=== PATIENT | female | born 1950 | race Caucasian/White ===

== ENCOUNTER 2016-12-22 09:46 | Day surgery (SDC) | payer MEDICARE, BC ==
[2016-12-22 10:25] VITALS: RESP 14; TEMP 97.9
[2016-12-22 10:27] LABS: Mean Platelet Volume 7.3
[2016-12-22 10:35] LABS: INR 1.1 (<1.1); Prothrombin Time 11.2 sec (9.0-12.0)
[2016-12-22 10:49] LABS: Glucose,Whole Blood 90 mg/dL (75-99)
[2016-12-22 11:59] VITALS: BP 97/56; PULSE 92
--- NOTE | 2016-12-22 12:25 | US ---
EXAMINATION TYPE: US thoracentesis DATE OF EXAM: 12/22/2016 COMPARISON: NONE HISTORY: Pleural effusion. FINDINGS: Maximal barrier technique was utilized. The skin overlying a suitable pocket of fluid was localized and the overlying skin prepped and draped. Lidocaine was used for local anesthesia. Ultras ound was used with sterile technique. A 5 Maltese catheter over guide needle was advanced into the pl eural fluid collection using ultrasound guidance and catheter advanced, needle removed. Approximatel y 20 cc of serous sanguinous fluid was removed. Catheter was withdrawn and hemostasis achieved. The re is no immediate complication. The patient discharged in stable condition without complication. IMPRESSION: STATUS POST ULTRASOUND GUIDED THORACENTESIS, POST PROCEDURE CHEST X-RAY PENDING. THIS WA OCEDURE WAS PERFORMED BY THE UNDERSIGNED. Specimen sent for laboratory analysis.
--- NOTE | 2016-12-22 12:27 | XR ---
EXAMINATION TYPE: XR chest 1V DATE OF EXAM: 12/22/2016 HISTORY: Status post thoracentesis. COMPARISON: None. TECHNIQUE: Single view of the chest is submitted. FINDINGS: Demonstrated are scattered senescent parenchymal change. No evidence for right-sided pneumothorax. Small right effusion persists. The heart is stable. Hilar and mediastinal structures are within normal limits. Degenerative changes are seen of the dorsal spine. IMPRESSION: 1. No evidence for right-sided pneumothorax. Small right effusion persists.
[2016-12-22 17:25] LABS: RBC, Body Fluid 6300 /uL
[2016-12-22 19:44] LABS: T. Protein, Body Fluid Source Pleural Fluid; Total Protein, Body Fluid 3600 mg/dL
== END 2016-12-22 12:30 | disposition home or self-care (01) ==
LOC: RADPROMAIN 09:46
PROVIDERS: ATTEND Internal Medicine Hematology & Oncology
DX: C34.90 Malignant neoplasm of unspecified part of unspecified bronchus or lung (principal); J91.8 Pleural effusion in other conditions classified elsewhere; Z87.891 Personal history of nicotine dependence; J44.9 Chronic obstructive pulmonary disease, unspecified; Z79.82 Long term (current) use of aspirin; Z79.899 Other long term (current) drug therapy; Z88.2 Allergy status to sulfonamides
CPT/HCPCS: 32555; 71010; 84157; 85049; 85610; 87070; 87075; 87205; 88108; 88305; 88341; 88342; 89050

== ENCOUNTER → 2019-11-24 | Outpatient (CLI) | payer MEDICARE, BC ==
--- NOTE | 2019-11-24 12:30 | MR ---
EXAMINATION TYPE: MR brain wo/w con DATE OF EXAM: 11/24/2019 COMPARISON: NONE HISTORY: 69-year-old female C34.90, Lung Ca, melanoma TECHNIQUE: Multiplanar, multisequence images of the brain and brainstem were acquired before and aft er administration of 9.5 mL IV Gadavist. Diffusion weighted imaging is performed. FINDINGS: No evidence for acute infarction, hemorrhage, mass, mass effect, midline shift, herniation, effacemen t of basal cisterns, or extra-axial fluid collection. The ventricles and sulci are age-appropriate. There is a 6 x 4 mm saccular aneurysm projecting at the distal M1 segment right middle cerebral arter y. 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 The vessel is tortuous with fusiform dilatation up to 6 mm and shows a blush at the right cribriform plate after which it is no longer elver ntified. T2/FLAIR weighted sequences show moderate to severe scattered bright white matter change in both cere bral hemispheres, particularly in the deep white matter regions and to a lesser extent in the subcort ical regions of both cervical hemispheres. Incidentally, there seems to be rounded enhancing mass along the inferior aspect of the left jaw, pos sibly related to the submandibular gland measuring at least 3.0 cm on coronal series and 2.8 cm on sa gittal series. Midline structures demonstrate normal morphology. The craniocervical junction is normal. Post contrast images demonstrate no other evidence of pathologic enhancement. Dural venous sinuses a re patent. Mild mucosal thickening sphenoid bases and ethmoid air cells. Globes are intact. IMPRESSION: 1. An abnormal large artery extending anteriorly from the right carotid bifurcation coursing along th e floor of the right anterior cranial fossa terminating as a vascular blush at the right cribriform p late. Recommend further evaluation with conventional angiogram to assess for AV malformation. 2. 6 x 4 mm saccular aneurysm at the distal M1 segment right MCA. 3. Incidental 3.0 cm round enhancing mass inferior to the right aspect of the jaw, possibly involving the submandibular gland. Correlate with physical exam findings for possible salivary gland tumor or metastatic disease given the patient's history. ENT referral recommended. 4. Moderate to severe scattered burden of bright white matter change, nonspecific, probably relating to chronic small vessel ischemic disease. 5. Otherwise, no suspicious intracranial enhancing lesions or acute intracranial abnormality seen.
== END | disposition home or self-care (01) ==
LOC: RADMRIMAIN 10:34
PROVIDERS: ATTEND Internal Medicine Hematology & Oncology
DX: I67.1 Cerebral aneurysm, nonruptured (principal); C34.90 Malignant neoplasm of unspecified part of unspecified bronchus or lung; C43.39 Malignant melanoma of other parts of face; R94.09 Abnormal results of other function studies of central nervous system
CPT/HCPCS: 70553; A9585

== ENCOUNTER 2019-12-21 23:10 | Inpatient (IN) | payer MEDICARE, BC ==
[2019-12-21] MEDS ORDERED: ALBUTEROL NEBULIZED 2.5 MG/3 ML INHALATION STA (23:31)
[2019-12-21] MEDS ORDERED: SODIUM CHLORIDE 0.9% 1,000 ML IV STA ×2 (23:31)
[2019-12-21] MEDS ORDERED: IPRATROPIUM 0.5 MG/2.5 ML NEBU INHALATION STA (23:31)
[2019-12-21] MEDS ORDERED: SODIUM CHLORIDE 0.9% 500 ML 500 ML IV STA (23:31)
[2019-12-21] MEDS ORDERED: AZITHROMYCIN 500 MG in SODIUM CHLORIDE 0.9% 250 ML IVPB ONE (23:31)
[2019-12-21] MEDS ORDERED: IBUPROFEN 800 MG TAB PO STA (23:49)
[2019-12-21] MEDS ORDERED: ACETAMINOPHEN TAB 500 MG TAB PO STA (23:49)
--- NOTE | 2019-12-22 00:24 | XR ---
EXAMINATION TYPE: XR chest 1V portable DATE OF EXAM: 12/21/2019 COMPARISON: 01/08/2019 HISTORY: Short of breath TECHNIQUE: FINDINGS: There is blunting right costophrenic angle. There is minimal infiltrate or atelectasis left lung base. There is some fullness at the left pulmonary hilum. There is no gross heart failure. IMPRESSION: There is right pleural effusion and right lower lobe infiltrate slightly increased compar ed to last exam. This possible mass at the left pulmonary hilum. Follow-up recommended. There is also fullness right pulmonary hilum and mass is also possible. Follow-up recommended.
--- NOTE | 2019-12-22 00:26 | ED ---
SOB HPI - General Chief Complaint: Shortness of Breath Stated Complaint: SOB Time Seen by Provider: 12/21/19 23:30 Source: patient, RN notes reviewed, old records reviewed Mode of arrival: ambulatory Limitations: no limitations - History of Present Illness Initial Comments: This is a 67-year-old female DF for evaluation of multiple complaints shortness of breath chest pain chest tightness fever. Patient does not feel well. Patient going to chemotherapy for lung cancer states that she has been feeling weak since yesterday does feel feverish sweating with shortness of breath and chest pain denying abdominal pain no nausea or vomiting. Patient has no recent travel history no significantly known sick contacts no family members with similar symptoms MD Complaint: shortness of breath, cough, pain with inspiration -: days(s) Severity: moderate Severity scale (1-10): 7 Quality: aching Consistency: constant Improves With: nothing Worsens With: nothing Known History Of: COPD, other (Lung cancer) Context: recent URI, recent illness, other (Patient currently on chemotherapy) - Related Data Home Medications Medication Instructions Recorded Confirmed Albuterol Inhaler (Mhu) [Ventolin 1 - 2 puff INHALATION Q6HR PRN 12/19/16 12/19/16 Hfa Inhaler] Albuterol Nebulized [Ventolin 2.5 mg INHALATION Q4H 12/19/16 12/22/16 Nebulized] Aspirin [Adult Low Dose Aspirin EC] 81 mg PO DAILY 12/19/16 12/19/16 Atenolol [Tenormin] 25 mg PO BID 12/19/16 12/22/16 Cholecalciferol [Vitamin D3] 1,000 unit PO DAILY 12/19/16 12/22/16 Chromium Picolinate 1,000 mcg PO DAILY 12/19/16 12/22/16 Furosemide [Lasix] 20 mg PO DAILY 12/19/16 12/22/16 Glucosam/Miller-Msm1/C/Bang/Bosw 1 each PO DAILY 12/19/16 12/22/16 [Glucosamine-Chondroitin Tablet] Loratadine [Claritin] 5 mg PO DAILY 12/19/16 12/22/16 Magnesium Chloride [Slow Mag] 64 mg PO BID 12/19/16 12/22/16 Potassium Gluconate 99 mg PO BID 12/19/16 12/22/16 Spironolactone [Aldactone] 25 mg PO DAILY 12/19/16 12/22/16 Tiotropium 18 Mcg/Puff [Spiriva] 1 cap INHALATION DAILY 12/19/16 12/22/16 metFORMIN HCL [Glucophage] 500 mg PO BID 12/19/16 12/22/16 Allergies Allergy/AdvReac Type Severity Reaction Status Date / Time Sulfa (Sulfonamide AdvReac Abdominal Verified 12/21/19 23:16 Antibiotics) Pain Review of Systems ROS Statement: Those systems with pertinent positive or pertinent negative responses have been documented in the HPI. ROS Other: All systems not noted in ROS Statement are negative. Past Medical History Past Medical History: Cancer, COPD, Diabetes Mellitus Additional Past Medical History / Comment(s): lung CA X2 with chemo therapy and radiation. History of Any Multi-Drug Resistant Organisms: None Reported Past Surgical History: Bladder Surgery, Hernia Repair, Tonsillectomy, Tubal Ligation Past Anesthesia/Blood Transfusion Reactions: No Reported Reaction Additional Past Anesthesia/Blood Transfusion Reaction / Comment(s): blood transfusion 2005 Past Psychological History: No Psychological Hx Reported Smoking Status: Former smoker Past Alcohol Use History: Occasional Past Drug Use History: None Reported - Past Family History Father Family Medical History: Cancer Additional Family Medical History / Comment(s): lung cancer father and brother, daughter breast and ovarian CA General Exam Limitations: no limitations General appearance: alert, in no apparent distress, anxious, in distress Head exam: Present: atraumatic, normocephalic, normal inspection Eye exam: Present: normal appearance, PERRL, EOMI. Absent: scleral icterus, conjunctival injection, periorbital swelling ENT exam: Present: normal exam, mucous membranes moist Neck exam: Present: normal inspection. Absent: tenderness, meningismus, lymphadenopathy Respiratory exam: Present: respiratory distress, wheezes, accessory muscle use, decreased breath sounds, prolonged expiratory. Absent: rales, rhonchi, stridor Cardiovascular Exam: Present: normal rhythm, tachycardia, normal heart sounds. Absent: systolic murmur, diastolic murmur, rubs, gallop, clicks GI/Abdominal exam: Present: soft, normal bowel sounds. Absent: distended, tenderness, guarding, rebound, rigid Extremities exam: Present: normal inspection, full ROM, normal capillary refill. Absent: tenderness, pedal edema, joint swelling, calf tenderness Back exam: Present: normal inspection Neurological exam: Present: alert, oriented X3, CN II-XII intact Psychiatric exam: Present: normal affect, normal mood Skin exam: Present: warm, dry, intact, normal color. Absent: rash Course Vital Signs 12/21/19 12/21/19 12/21/19 23:11 23:25 23:30 Temperature 101.9 F H Pulse Rate 120 H 131 H Respiratory 30 H 18 Rate Blood Pressure 102/60 117/57 O2 Sat by Pulse 83 L 99 100 Oximetry 12/21/19 12/21/19 12/22/19 23:45 23:55 00:00 Temperature Pulse Rate 130 H 130 H 133 H Respiratory 20 Rate Blood Pressure 126/58 O2 Sat by Pulse 100 Oximetry 12/22/19 12/22/19 12/22/19 00:09 00:20 00:30 Temperature Pulse Rate 130 H 141 H 141 H Respiratory 19 Rate Blood Pressure 90/69 O2 Sat by Pulse 97 Oximetry 12/22/19 12/22/19 12/22/19 00:44 01:00 01:30 Temperature 99.1 F Pulse Rate 138 H 131 H Respiratory 22 20 Rate Blood Pressure 129/72 118/49 O2 Sat by Pulse 98 99 Oximetry 12/22/19 12/22/19 12/22/19 01:56 02:00 03:17 Temperature Pulse Rate 128 H 129 H 124 H Respiratory 17 20 26 H Rate Blood Pressure 117/40 117/40 O2 Sat by Pulse 96 97 96 Oximetry - Reevaluation(s) Reevaluation #1: 12/22/19 05:14 Medical records reviewed Reevaluation #2: 12/22/19 05:14 Patient symptomatically significantly improved here in the ER Reevaluation #3: 12/22/19 05:14 We will get ultrasound based on patient's computed tomography scan findings and lab values - Consultations Consultation #1: Spoke with [facility] agrees to admit Medical Decision Making - Medical Decision Making 69 female to be admitted for neutropenic fever. Patient also has some gallb ladder abnormalities, likely underlying pneumonia. - Lab Data Result diagrams: 12/22/19 00:02 12/22/19 00:02 Lab Results 12/22/19 12/22/19 12/22/19 Range/Units 00:02 00:02 00:02 WBC 0.1 L* (3.8-10.6) k/uL RBC 3.44 L (3.80-5.40) m/uL Hgb 10.5 L (11.4-16.0) gm/dL Hct 32.2 L (34.0-46.0) % MCV 93.4 (80.0-100.0) fL MCH 30.6 (25.0-35.0) pg MCHC 32.8 (31.0-37.0) g/dL RDW 13.3 (11.5-15.5) % Plt Count 92 L (150-450) k/uL Neutrophils # [employer] Differential Comment Manual Slide Review Performed PT 12.9 H (9.0-12.0) sec INR 1.3 H (<1.2) APTT 24.7 (22.0-30.0) sec D-Dimer 2.32 H (<0.60) mg/L FEU Sodium 129 L (137-145) mmol/L Potassium 4.8 (3.5-5.1) mmol/L Chloride 88 L (98-107) mmol/L Carbon Dioxide 31 H (22-30) mmol/L Anion Gap 10 mmol/L BUN 26 H (7-17) mg/dL Creatinine 1.06 H (0.52-1.04) mg/dL Est GFR (CKD-EPI)AfAm 62 (>60 ml/min/1.73 sqM) Est GFR (CKD-EPI)NonAf 54 (>60 ml/min/1.73 sqM) Glucose 171 H (74-99) mg/dL Lactic Ac Sepsis Rflx Plasma Lactic Acid Toño (0.7-2.0) mmol/L Calcium 8.5 (8.4-10.2) mg/dL Magnesium 1.1 L (1.6-2.3) mg/dL Total Bilirubin 3.0 H (0.2-1.3) mg/dL AST 38 H (14-36) U/L ALT 21 (4-34) U/L Alkaline Phosphatase 65 (38-126) U/L Lactate Dehydrogenase 785 H (313-618) U/L Troponin I (0.000-0.034) ng/mL C-Reactive Protein 176.0 H (<10.0) mg/L NT-Pro-B Natriuret Pep pg/mL Total Protein 6.6 (6.3-8.2) g/dL Albumin 3.4 L (3.5-5.0) g/dL 12/22/19 12/22/19 12/22/19 Range/Units 00:02 00:02 00:02 WBC (3.8-10.6) k/uL RBC (3.80-5.40) m/uL Hgb (11.4-16.0) gm/dL Hct (34.0-46.0) % MCV (80.0-100.0) fL MCH (25.0-35.0) pg MCHC (31.0-37.0) g/dL RDW (11.5-15.5) % Plt Count (150-450) k/uL Neutrophils # Differential Comment Manual Slide Review PT (9.0-12.0) sec INR (<1.2) APTT (22.0-30.0) sec D-Dimer (<0.60) mg/L FEU Sodium (137-145) mmol/L Potassium (3.5-5.1) mmol/L Chloride (98-107) mmol/L Carbon Dioxide (22-30) mmol/L Anion Gap mmol/L BUN (7-17) mg/dL Creatinine (0.52-1.04) mg/dL Est GFR (CKD-EPI)AfAm (>60 ml/min/1.73 sqM) Est GFR (CKD-EPI)NonAf (>60 ml/min/1.73 sqM) Glucose (74-99) mg/dL Lactic Ac Sepsis Rflx Plasma Lactic Acid Toño 2.6 H* (0.7-2.0) mmol/L Calcium (8.4-10.2) mg/dL Magnesium (1.6-2.3) mg/dL Total Bilirubin (0.2-1.3) mg/dL AST (14-36) U/L ALT (4-34) U/L Alkaline Phosphatase (38-126) U/L Lactate Dehydrogenase (313-618) U/L Troponin I 0.013 (0.000-0.034) ng/mL C-Reactive Protein (<10.0) mg/L NT-Pro-B Natriuret Pep 245 pg/mL Total Protein (6.3-8.2) g/dL Albumin (3.5-5.0) g/dL 12/22/19 Range/Units 00:44 WBC (3.8-10.6) k/uL RBC (3.80-5.40) m/uL Hgb (11.4-16.0) gm/dL Hct (34.0-46.0) % MCV (80.0-100.0) fL MCH (25.0-35.0) pg MCHC (31.0-37.0) g/dL RDW (11.5-15.5) % Plt Count (150-450) k/uL Neutrophils # Differential Comment Manual Slide Review PT (9.0-12.0) sec INR (<1.2) APTT (22.0-30.0) sec D-Dimer (<0.60) mg/L FEU Sodium (137-145) mmol/L Potassium (3.5-5.1) mmol/L Chloride (98-107) mmol/L Carbon Dioxide (22-30) mmol/L Anion Gap mmol/L BUN (7-17) mg/dL Creatinine (0.52-1.04) mg/dL Est GFR (CKD-EPI)AfAm (>60 ml/min/1.73 sqM) Est GFR (CKD-EPI)NonAf (>60 ml/min/1.73 sqM) Glucose (74-99) mg/dL Lactic Ac Sepsis Rflx Y Plasma Lactic Acid Toño (0.7-2.0) mmol/L Calcium (8.4-10.2) mg/dL Magnesium (1.6-2.3) mg/dL Total Bilirubin (0.2-1.3) mg/dL AST (14-36) U/L ALT (4-34) U/L Alkaline Phosphatase (38-126) U/L Lactate Dehydrogenase (313-618) U/L Troponin I (0.000-0.034) ng/mL C-Reactive Protein (<10.0) mg/L NT-Pro-B Natriuret Pep pg/mL Total Protein (6.3-8.2) g/dL Albumin (3.5-5.0) g/dL - EKG Data -: EKG Interpreted by Me (EKG sinus tachycardia 1:30 by mouth 160 QRS 74 QTc 470) - Radiology Data Radiology results: report reviewed (Chest x-ray CT chest negative for PE does show pneumonia, ultrasound gallbladder), image reviewed Disposition Clinical Impression: Acute exacerbation of chronic obstructive pulmonary disease, Neutropenic fever Disposition: ADMITTED IP TO THIS HOSP Condition: Serious Is patient prescribed a controlled substance at d/c from ED?: No
[2019-12-22 00:29] LABS: HCT 32.2 % (34.0-46.0); HGB 10.5 gm/dL (11.4-16.0); MCH 30.6 pg (25.0-35.0); MCHC 32.8 g/dL (31.0-37.0); MCV 93.4 fL (80.0-100.0); Mean Platelet Volume 9.2; RBC 3.44 m/uL (3.80-5.40); RDW 13.3 % (11.5-15.5)
[2019-12-22 00:39] LABS: WBC 0.1 k/uL (3.8-10.6)
[2019-12-22] MEDS ORDERED: VANCOMYCIN IV PER PHARMACY 1 EACH MISC MISCELLANE PRN (00:41)
[2019-12-22] MEDS ORDERED: PIPERACILLIN-TAZOBACTAM 3.375 GM in SODIUM CHLORIDE 0.9% 100 ML IVPB STA (00:41)
[2019-12-22 00:50] LABS: Albumin 3.4 g/dL (3.5-5.0); Calcium 8.5 mg/dL (8.4-10.2); Total Protein 6.6 g/dL (6.3-8.2)
[2019-12-22 01:08] LABS: Platelet Count 92 k/uL (150-450)
[2019-12-22 01:18] LABS: INR 1.3 (<1.2); Partial Thromboplastin Time 24.7 sec (22.0-30.0); Prothrombin Time 12.9 sec (9.0-12.0)
[2019-12-22 01:22] LABS: D-Dimer 2.32 mg/L FEU (<0.60)
[2019-12-22] MEDS ORDERED: VANCOMYCIN 1,500 MG in SODIUM CHLORIDE 0.9% 250 ML IVPB ONE (02:00)
[2019-12-22 02:19] LABS: Magnesium 1.1 mg/dL (1.6-2.3); Potassium 4.8 mmol/L (3.5-5.1)
[2019-12-22] MEDS ORDERED: SODIUM CHLORIDE 0.9% 1,000 ML IV SCH (03:00)
[2019-12-22] MEDS: SODIUM CHLORIDE 0.9% 500 ML 500 ML IV SCH ×2 (03:34→03:35)
--- NOTE | 2019-12-22 04:14 | CT ---
EXAMINATION TYPE: CT angio chest DATE OF EXAM: 12/22/2019 COMPARISON: None HISTORY: R/O PE CT DLP: 572.40 mGycm Automated exposure control for dose reduction was used. CONTRAST: Performed with IV Contrast, patient injected with 80 mL of Isovue 370. Multiple axial sections were obtained from the thoracic inlet to the diaphragm with IV contrast and 3 -D post processed images. There is some loculated right pleural effusion with pleural thickening on the posterior chest wall on the right side. Heart size is fairly normal. There is some atelectasis in the medial posterior right lung base. There is extensive left side bronchial adenopathy with encasement of the left lower lobe bronchus. Thoracic aorta is intact. There is no aneurysm or dissection. Heart is shifted slightly to the right side. I see no filling defects in the pulmonary arteries. There is a somewhat spiculated 2.5 x 1.5 cm infiltrate with probably some cavitation in the left lowe r lobe in the superior segment. There is L1 anterior wedging with 25% loss of height. This is probabl y old fracture. There are multiple small calcified gallstones. Gallbladder is dilated up to almost 5 cm and suggestiv e of gallbladder dysfunction or cholecystitis. IMPRESSION: No evidence of pulmonary embolism. Masslike adenopathy at the left pulmonary hilum with lymph nodes that measure up to 3 cm. There is a cavitating small stellate infiltrate left lower lobe suspicious for tumor. Pleural thickening and loculated right pleural effusion with right lower lobe atelectasis and some vo lume loss. I would consider empyema and mesothelioma. Dilated gallbladder with gallstones.
[2019-12-22] MEDS ORDERED: IPRATROPIUM-ALBUTEROL 3 ML NEB INHALATION STA (05:37)
--- NOTE | 2019-12-22 05:55 | US ---
EXAMINATION TYPE: US gallbladder DATE OF EXAM: 12/22/2019 COMPARISON: NONE CLINICAL HISTORY: nano. Pain EXAM MEASUREMENTS: Liver Length: 13.3 cm Gallbladder Wall: 0.4 cm CBD: 0.7 cm Right Kidney: 9.7 x 4.8 x 4.7 cm Pt heavy breathing during exam, difficult scan Pancreas: Obscured by bowel gas Liver: Limited views show no abnormality Gallbladder: small, mobile gallstones, wall slightly thick ened Evidence for sonographic Piedra's sign: No CBD: wnl Right Kidney: wnl Scant amount of possible ascites adjacent to gallbladder IMPRESSION: There are numerous gallstones. No dilated ducts. Minimal free fluid. no significant gallbladder wall thickening.
[2019-12-22] MEDS: PANTOPRAZOLE 40 MG/10 ML VIAL IV SCH (08:21)
[2019-12-22] MEDS: MAGNESIUM SULFATE-D5W PMX 1 GM in DEXTROSE/WATER 1 100ML.BAG IVPB SCH ×3 (08:23→11:47)
[2019-12-22] MEDS: ALBUTEROL NEBULIZED 2.5 MG/3 ML INHALATION SCH ×5 (08:38→23:26)
[2019-12-22] MEDS ORDERED: PIPERACILLIN-TAZOBACTAM 3.375 GM in SODIUM CHLORIDE 0.9% 100 ML IVPB SCH (10:00)
[2019-12-22] MEDS ORDERED: IOPAMIDOL CONTRAST (ORAL USE) VIAL PO PRN (10:09)
[2019-12-22] MEDS ORDERED: PROPOFOL 10 MG/ML 20 ML VIAL IV ONE (10:28)
[2019-12-22] MEDS: IPRATROPIUM-ALBUTEROL 3 ML NEB INHALATION PRN (11:26)
[2019-12-22] MEDS ORDERED: SODIUM CHLORIDE 0.9% 1,000 ML IV ONE (12:08)
[2019-12-22] MEDS: CEFEPIME 2 GM in SODIUM CHLORIDE 0.9% 100 ML IVPB SCH ×2 (12:21→23:25)
[2019-12-22] MEDS: ONDANSETRON 4 MG/2 ML VIAL IVP PRN ×2 (12:21→18:28)
[2019-12-22 12:27] LABS: Amorphous Sediment,Urine Rare /hpf; Appearance,Urine Cloudy (Clear); Bacteria,Urine Many /hpf; Bilirubin,Urine Negative (Negative); Blood,Urine Small (Negative); Color,Urine Yellow; Glucose,Urine (UA) Negative (Negative); Ketones,Urine Negative (Negative); Leukocyte Esterase,Urine Small (Negative); Mucus,Urine Occasional /hpf; Nitrite,Urine Negative (Negative); PH, Urine 7.5 (5.0-8.0); Protein,Urine 1+ (Negative); RBC,Urine 2 /hpf (0-5); Squamous Epithelial Cell,Urine 5 /hpf (0-4); Urobilinogen,Urine <2.0 mg/dL (<2.0); WBC,Urine 6 /hpf (0-5)
[2019-12-22] MEDS ORDERED: ATENOLOL 25 MG TAB PO SCH (13:00)
--- NOTE | 2019-12-22 14:00 | P.HPIM ---
History of Present Illness This is a pleasant 69 years old female with past medical history of COPD, diabetes mellitus, lung cancer status post chemoradiotherapy. Patient presents with dyspnea and chest pain with fever, malaise of 1-2 days duration. Also hayley reyez complaining of from diarrhea abdominal pain, nausea vomiting. Patient states although she is dyspneic but thus close to her baseline as per patient states, she uses oxygen 2-3 L at home but no steroid dependent and she sees Dr. Urrutia in the outpatient setting. However over the last 2-3 days patient was not eating well with decreased appetite she didn't vomit Seferino she came to the hospital but she has significant diarrhea about 5-6 times per day which is watery no blood noted. She checked her temperature at home was 100.5 so her daughter make her call the office of Dr. garber who instructed her to come to emergency room. She has some coughing. Also shows some abdominal distention. Patient has not voided says yesterday had Solares catheter was inserted in the emergency room. she follow up with Dr. Valladares for her chemotherapy and last dose of the chemotherapy was last Sunday on 12/18 She is tachycardic with heart rate 108/112, blood pressure 102/41, she had a fever of 101.9. Left Angelica Mikki 0.1K, M Powell 0.5 and platelets 90 2K. INR is 1.3, d-dimer is 2.3 elevated lactic acid 3.7, 4.1 and 5.8, sodium is low as 129, potassium n chest x-ray: ormal 4.8, magnesium of 1.1, creatinine 1.06 which is mildly elevated. Tenderness is high at 576, AST 38, LDH is 785, troponin 0.013, serum protein is 176 which is high blood culture has been sent Chest x-ray showing right pleural effusion and right lower lobe infiltrate slightly increased, possible mass at the left pulmonary hilum. Chest CTA is negative for PE and there is masslike adenopathy of the left pulmonary hilum with lymph nodes that measure up to 3 cm, there isn't currently taking infiltrate in the left lower lobe Gallbladder ultrasound: Numerous gallstones, no significant gallbladder wall thickening EKG showing sinus tachycardia at 1:30, no significant ST-T changes, QTC is 470 In the emergency room patient received IV fluids, started on Zithromax, vancomycin, cefepime. Patient also on D5 normal saline at 100 mL per hour Infectious place was well for oncologist and infectious disease specialist Review of Systems CONSTITUTIONAL: + fever HEENT: No recent visual problems or hearing problems. Denied any sore throat. CARDIOVASCULAR: No orthopnea, PND, no palpitations, no syncope. PULMONARY: no hemoptysis. GASTROINTESTINAL: No diarrhea, no nausea, no vomiting, no abdominal pain. Normoactive bowel sounds. NEUROLOGICAL: No headaches, no weakness, no numbness. HEMATOLOGICAL: Denies any bleeding or petechiae. GENITOURINARY: Denies any burning micturition, frequency, or urgency. MUSCULOSKELETAL/RHEUMATOLOGICAL: Denies any joint pain, swelling, or any muscle pain. ENDOCRINE: Denies any polyuria or polydipsia. Past Medical History Past Medical History: Cancer, COPD, Diabetes Mellitus Additional Past Medical History / Comment(s): lung CA X2 with chemo therapy and radiation. History of Any Multi-Drug Resistant Organisms: None Reported Past Surgical History: Bladder Surgery, Hernia Repair, Tonsillectomy, Tubal Ligation Past Anesthesia/Blood Transfusion Reactions: No Reported Reaction Additional Past Anesthesia/Blood Transfusion Reaction / Comment(s): blood transfusion 2005 Past Psychological History: No Psychological Hx Reported Smoking Status: Former smoker Past Alcohol Use History: Occasional Past Drug Use History: None Reported - Past Family History Father Family Medical History: Cancer Additional Family Medical History / Comment(s): lung cancer father and brother, daughter breast and ovarian CA Medications and Allergies Home Medications Medication Instructions Recorded Confirmed Type Albuterol Inhaler (Mhu) [Ventolin 2 puff INHALATION RT-Q6H PRN 12/19/16 12/22/19 History Hfa Inhaler] Albuterol Nebulized [Ventolin 2.5 mg INHALATION RT-Q4H 12/19/16 12/22/19 History Nebulized] Atenolol [Tenormin] 25 mg PO BID 12/19/16 12/22/19 History Loratadine [Claritin] 10 mg PO HS 12/19/16 12/22/19 History Potassium Gluconate 99 mg PO BID 12/19/16 12/22/19 History Spironolactone [Aldactone] 25 mg PO DAILY 12/19/16 12/22/19 History Acetaminophen Tab [Tylenol Tab] 500 - 1,000 mg PO QID PRN 12/22/19 12/22/19 History Dronabinol [Marinol] 5 mg PO HS 12/22/19 12/22/19 History Fluconazole 200 mg PO DAILY 12/22/19 12/22/19 History Fluticasone/Vilanterol [Breo 1 puff INHALATION RT-DAILY 12/22/19 12/22/19 History Ellipta 200-25 Mcg INH] Prochlorperazine [Compazine] 10 mg PO Q6H PRN 12/22/19 12/22/19 History Torsemide [Demadex] 20 mg PO DAILY 12/22/19 12/22/19 History Vitamin D3(Unknown) 1 tab PO BID 12/22/19 12/22/19 History Allergies Allergy/AdvReac Type Severity Reaction Status Date / Time guaifenesin [From Mucinex] AdvReac Nausea & Verified 12/22/19 08:20 Vomiting Sulfa (Sulfonamide AdvReac headache Verified 12/22/19 08:20 Antibiotics) Physical Exam Vitals: Vital Signs Temp Pulse Resp BP Pulse Ox 12/22/19 11:26 113 H 12/22/19 10:00 112 H 12/22/19 09:00 98 F 108 H 20 102/41 100 12/22/19 08:49 112 H 12/22/19 08:38 112 H 12/22/19 08:00 20 12/22/19 05:51 116 H 12/22/19 05:43 117 H 12/22/19 03:17 124 H 26 H 96 12/22/19 02:00 129 H 20 117/40 97 12/22/19 01:56 128 H 17 117/40 96 12/22/19 01:30 131 H 20 118/49 99 12/22/19 01:00 138 H 22 129/72 98 12/22/19 00:44 99.1 F 12/22/19 00:30 141 H 19 90/69 97 12/22/19 00:20 141 H 12/22/19 00:09 130 H 12/22/19 00:00 133 H 20 126/58 100 12/21/19 23:55 130 H 12/21/19 23:45 130 H 12/21/19 23:30 131 H 18 117/57 100 12/21/19 23:25 99 12/21/19 23:11 101.9 F H 120 H 30 H 102/60 83 L Intake and Output 12/21/19 12/22/19 12/22/19 22:59 06:59 14:59 Other: Weight 90.718 kg -GENERAL: The patient is alert and oriented x3, in mild respiratory acute distress. Well developed, well nourished. HEENT: Pupils are round and equally reacting to light. EOMI. No scleral icterus. No conjunctival pallor. Normocephalic, atraumatic. No pharyngeal erythema. No thyromegaly. CARDIOVASCULAR: S1 and S2 present. No murmurs, rubs, or gallops. -PULMONARY: Chest is clear to auscultation,. Decreased breath sounds in the lung bases with some crackers -ABDOMEN: Soft, generalized abdominal pain, more on the left lower side, no rebound tenderness, no guarding, distended, normoactive bowel sounds. No palpable organomegaly. Solares catheter is in place MUSCULOSKELETAL: No joint swelling or deformity. EXTREMITIES: No cyanosis, clubbing, or pedal edema. NEUROLOGICAL: Gross neurological examination did not reveal any focal deficits. SKIN: No rashes. No petechiae Results CBC & Chem 7: 12/22/19 00:02 12/22/19 00:02 Labs: Abnormal Lab Results - Last 24 Hours (Table) 12/22/19 12/22/19 12/22/19 Range/Units 00:02 00:02 00:02 WBC 0.1 L* (3.8-10.6) k/uL RBC 3.44 L (3.80-5.40) m/uL Hgb 10.5 L (11.4-16.0) gm/dL Hct 32.2 L (34.0-46.0) % Plt Count 92 L (150-450) k/uL PT 12.9 H (9.0-12.0) sec INR 1.3 H (<1.2) D-Dimer 2.32 H (<0.60) mg/L FEU Sodium 129 L (137-145) mmol/L Chloride 88 L (98-107) mmol/L Carbon Dioxide 31 H (22-30) mmol/L BUN 26 H (7-17) mg/dL Creatinine 1.06 H (0.52-1.04) mg/dL Glucose 171 H (74-99) mg/dL Plasma Lactic Acid Toño (0.7-2.0) mmol/L Magnesium 1.1 L (1.6-2.3) mg/dL Total Bilirubin 3.0 H (0.2-1.3) mg/dL AST 38 H (14-36) U/L Lactate Dehydrogenase 785 H (313-618) U/L C-Reactive Protein 176.0 H (<10.0) mg/L Albumin 3.4 L (3.5-5.0) g/dL 12/22/19 12/22/19 12/22/19 Range/Units 00:02 03:15 06:31 WBC (3.8-10.6) k/uL RBC (3.80-5.40) m/uL Hgb (11.4-16.0) gm/dL Hct (34.0-46.0) % Plt Count (150-450) k/uL PT (9.0-12.0) sec INR (<1.2) D-Dimer (<0.60) mg/L FEU Sodium (137-145) mmol/L Chloride (98-107) mmol/L Carbon Dioxide (22-30) mmol/L BUN (7-17) mg/dL Creatinine (0.52-1.04) mg/dL Glucose (74-99) mg/dL Plasma Lactic Acid Toño 2.6 H* 3.7 H* 4.1 H* (0.7-2.0) mmol/L Magnesium (1.6-2.3) mg/dL Total Bilirubin (0.2-1.3) mg/dL AST (14-36) U/L Lactate Dehydrogenase (313-618) U/L C-Reactive Protein (<10.0) mg/L Albumin (3.5-5.0) g/dL 12/22/19 Range/Units 10:04 WBC (3.8-10.6) k/uL RBC (3.80-5.40) m/uL Hgb (11.4-16.0) gm/dL Hct (34.0-46.0) % Plt Count (150-450) k/uL PT (9.0-12.0) sec INR (<1.2) D-Dimer (<0.60) mg/L FEU Sodium (137-145) mmol/L Chloride (98-107) mmol/L Carbon Dioxide (22-30) mmol/L BUN (7-17) mg/dL Creatinine (0.52-1.04) mg/dL Glucose (74-99) mg/dL Plasma Lactic Acid Toño 5.8 H* (0.7-2.0) mmol/L Magnesium (1.6-2.3) mg/dL Total Bilirubin (0.2-1.3) mg/dL AST (14-36) U/L Lactate Dehydrogenase (313-618) U/L C-Reactive Protein (<10.0) mg/L Albumin (3.5-5.0) g/dL Microbiology - Last 24 Hours (Table) 12/22/19 00:02 Blood Culture - Final Blood Assessment and Plan Assessment: Febrile neutropenia Sepsis Secondary to pneumonia, bilateral left and right lower lobe pneumonia with pleural effusion elevated lactic acid Hyponatremia, hypovolemic Electrolyte abnormality with hypomagnesemia Dilated gallbladder, suspicious for gallbladder dysfunction or cholecystitis, however ultrasound showing no gallbladder thickening Lung cancer status post chemoradiotherapy Diabetes mellitus COPD Plan: this is a pleasant 69 years old female who presents with pneumonia and febrile neutropenia. Continue with antibiotic vancomycin and cefepime, follow-up culture results. Continue with IV fluids. Follow-up pulmonary service consult. Follow-up by infectious disease and oncologist. Check urinalysis and urine culture, check sputum culture. Follow-up pro-calcitonin . We'll check abdominal x-ray Labs and medication were reviewed.. Continue same treatment. Continue with symptomatic treatment. Resume home medication. Monitor lytes and vitals. DVT and GI prophylaxis. Further recommendations of the clinical course of the patient DVT prophylaxis: Subcutaneous heparin GI Prophylaxis: Pepcid Prognosis is guarded
[2019-12-22] MEDS: DEXTROSE 5%-0.9% NACL 1,000 ML IV SCH ×2 (14:30→21:51)
--- NOTE | 2019-12-22 14:39 | XR ---
KUB HISTORY: Abdomen distention and diarrhea Single frontal KUB There is contrast material present within the urinary bladder, distal ureters on the right likely rel ated to contrast exam from 12/22/2019. No evident bowel obstruction or pneumoperitoneum. Arthropathy i s noted in the hips. Degenerative disc changes in the visualized spine. Exam somewhat limited for ondina luation of possible calcifications. IMPRESSION: Retained contrast. No acute abnormality evident.
--- NOTE | 2019-12-22 15:32 | XR ---
EXAMINATION TYPE: XR chest 1V portable DATE OF EXAM: 12/22/2019 Comparison: 12/21/2019 Clinical History: 69 year-old female shortness of breath, difficulty breathing Findings: Heart is moderately enlarged. Diffuse interstitial densities throughout. More confluent patchy bilate ral infrahilar and basilar opacities. No sizable effusion seen. Impression: Cardiomegaly and interstitial opacities. More patchy bilateral infrahilar and basilar opacities. Brianna elate for CHF with interstitial pulmonary edema.
--- NOTE | 2019-12-22 15:50 | CDI ---
Documentation Clarification Form Date: 12/22/2019 03:27:19 PM From: Nasra Rosen Email: [email or web address] Admit Date: 12/22/2019 02:56:00 AM Patient Name: Vaishnavi Tinsley Visit Number: [id number] Discharge Date: ATTENTION: The Clinical Documentation Specialists (CDI) and [facility] Coding Staff appreciate your assistance in clarifying documentation. Please respond to the clarification below the line at the bottom and electronically sign. The CDI & [facility] Coding staff will review the response and follow-up if needed. Please note: Queries are made part of the Legal Health Record. If you have any questions, please contact the author of this message via ITS. Dr. Salinas E Sheet The patient presented with shortness of breath, chest pain, chest tightness and Fever. History/Risk Factors: 69-year-old female with a history of COPD, Lung Cancer and home oxygen 2 to 3 L home oxygen Tobacco use: Former Home oxygen: 2 to 3L home oxygen Clinical Indicators: 12/20 Vital signs: 102/60 120 101.9 30 83% 2L nasal cannula 12/21 H & P Lung/Breathing assessment: Chest is clear to auscultation. Decreased breath sounds in the lung bases with some crackles. Treatment: Breathing tx 12/21 Albuterol Sulfate Inhalation Q 4 HAKAN, Albuterol Ipratropium QID Prn, Oxygen Via nasal cannula 2 to 3 L In your professional opinion, can you please clarify if these findings signify one of the following conditions? Chronic Respiratory Failure Other Diagnosis, please specify Unable to determine Specificity: If known, further specify (if known): With hypercapnia? (pCO2 >50 and pH <7.35) With hypoxia? (pO2 <60 mm Hg or SpO2 <91% on room air) (Last Query Form Revision: February 2019) Chronic Respiratory Failure MTDD
[2019-12-22] MEDS ORDERED: FUROSEMIDE 10 MG/ML 4 ML VIAL IV STA (15:51)
--- NOTE | 2019-12-22 15:55 | P.CNPUL ---
History of Present Illness Consult date: 12/22/19 Requesting physician: Dimitrios Gaviria Reason for consult: other ( febrile neutropenia and sepsis) Chief complaint: Shortness of breath and fever. 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 Her diagnosis was initially established in 2006, and she has been in remission on 10 recently when she was noted to have recurrence of her malignancy. Started back on chemotherapy, Her last chemotherapy was on Sunday given to her and Dr. Valladares's office. Patient presented to the ER with multiple complaints including fever with temp of 101.3, weakness, malaise, diarrhea, abdominal pain, nausea and vomiting. Patient is normally on oxygen at 2-3 L/m, patient is not steroids dependent for her underlying COPD. She sees Dr. Urrutia on outpatient basis for her underlying COPD and known history underlying lung answer. Patient called her oncologist yesterday complaining of fever and multiple constitutional symptoms, and she was advised to come to the ER. While in the ER, the patient was noted to be tachycardic, marginal blood pressure, neutropenic, elevated lactic acid, and her CT of the chest showed no evidence of pulmonary embolism, but there is masslike adenopathy in the left hilum and cavitary lesion , noted in the left lower lobe suspicious for tumor. I evaluated the patient in the ER, reviewed her chest x- ray, CT of the chest, and I strongly felt that the patient is septic. Blood culture is showing gram-negative rods. Hence the patient was started empirically on cefepime and on vancomycin until the final cultures become available. In the meantime I recommended transfer the patient to ICU is set of the regular medical floor/oncology. Review of Systems CONSTITUTIONAL: + fever HEENT: No recent visual problems or hearing problems. Denied any sore throat. CARDIOVASCULAR: No orthopnea, PND, no palpitations, no syncope. PULMONARY: no hemoptysis. GASTROINTESTINAL: Nausea vomiting and diarrhea NEUROLOGICAL: No headaches, no weakness, no numbness. HEMATOLOGICAL: Denies any bleeding or petechiae. GENITOURINARY: Denies any burning micturition, frequency, or urgency. MUSCULOSKELETAL/RHEUMATOLOGICAL: Denies any joint pain, swelling, or any muscle pain. ENDOCRINE: Denies any polyuria or polydipsia. Denies any heat or cold intolerance. Past Medical History Past Medical History: Cancer, COPD, Diabetes Mellitus Additional Past Medical History / Comment(s): lung CA X2 with chemo therapy and radiation. History of Any Multi-Drug Resistant Organisms: None Reported Past Surgical History: Bladder Surgery, Hernia Repair, Tonsillectomy, Tubal Ligation Additional Past Surgical History / Comment(s): Bladder suspension, abdominal hernia repair, colonoscopy. Past Anesthesia/Blood Transfusion Reactions: No Reported Reaction Additional Past Anesthesia/Blood Transfusion Reaction / Comment(s): blood transfusion 2005 Smoking Status: Former smoker - Past Family History Father Family Medical History: Cancer Additional Family Medical History / Comment(s): lung cancer father and brother, daughter breast and ovarian CA Brother(s) Family Medical History: Cancer Additional Family Medical History / Comment(s): 2 brothers with lung cancer. Daughter(s) Family Medical History: Cancer Additional Family Medical History / Comment(s): . Breast/ovarian cancers. Medications and Allergies Home Medications Medication Instructions Recorded Confirmed Type Albuterol Inhaler (Mhu) [Ventolin 2 puff INHALATION RT-Q6H PRN 12/19/16 12/22/19 History Hfa Inhaler] Albuterol Nebulized [Ventolin 2.5 mg INHALATION RT-Q4H 12/19/16 12/22/19 History Nebulized] Atenolol [Tenormin] 25 mg PO BID 12/19/16 12/22/19 History Loratadine [Claritin] 10 mg PO HS 12/19/16 12/22/19 History Potassium Gluconate 99 mg PO BID 12/19/16 12/22/19 History Spironolactone [Aldactone] 25 mg PO DAILY 12/19/16 12/22/19 History Acetaminophen Tab [Tylenol Tab] 500 - 1,000 mg PO QID PRN 12/22/19 12/22/19 History Dronabinol [Marinol] 5 mg PO HS 12/22/19 12/22/19 History Fluconazole 200 mg PO DAILY 12/22/19 12/22/19 History Fluticasone/Vilanterol [Breo 1 puff INHALATION RT-DAILY 12/22/19 12/22/19 History Ellipta 200-25 Mcg INH] Prochlorperazine [Compazine] 10 mg PO Q6H PRN 12/22/19 12/22/19 History Torsemide [Demadex] 20 mg PO DAILY 12/22/19 12/22/19 History Vitamin D3(Unknown) 1 tab PO BID 12/22/19 12/22/19 History Allergies Allergy/AdvReac Type Severity Reaction Status Date / Time guaifenesin [From Mucinex] AdvReac Nausea & Verified 12/22/19 08:20 Vomiting Sulfa (Sulfonamide AdvReac headache Verified 12/22/19 08:20 Antibiotics) Physical Exam Vitals: Vital Signs Temp Pulse Resp BP Pulse Ox 12/22/19 14:00 130 H 22 97/77 97 12/22/19 13:00 114 H 22 90/55 96 12/22/19 12:47 115 H 20 90/55 99 12/22/19 12:00 117 H 25 H 102/41 12/22/19 11:40 108 H 12/22/19 11:26 113 H 12/22/19 11:00 112 H 19 102/41 12/22/19 10:00 112 H 12/22/19 09:00 98 F 108 H 20 102/41 100 12/22/19 08:49 112 H 12/22/19 08:38 112 H 12/22/19 08:00 20 12/22/19 06:00 99 12/22/19 05:51 116 H 12/22/19 05:43 117 H 12/22/19 05:00 116 H 12/22/19 04:00 95/58 12/22/19 03:17 124 H 26 H 96 12/22/19 03:00 121 H 35 H 91/39 98 12/22/19 02:00 129 H 20 117/40 97 12/22/19 01:56 128 H 17 117/40 96 12/22/19 01:30 131 H 20 118/49 99 12/22/19 01:00 138 H 22 129/72 98 12/22/19 00:44 99.1 F 12/22/19 00:30 141 H 19 90/69 97 12/22/19 00:20 141 H 12/22/19 00:09 130 H 12/22/19 00:00 133 H 20 126/58 100 12/21/19 23:55 130 H 12/21/19 23:45 130 H 12/21/19 23:30 131 H 18 117/57 100 12/21/19 23:25 99 12/21/19 23:11 101.9 F H 120 H 30 H 102/60 83 L Intake and Output 12/22/19 12/22/19 12/22/19 06:59 14:59 22:59 Other: Weight 90.718 kg 90.718 kg -GENERAL: The patient is alert and oriented x3, not in respiratory distress. Patient was noted to have intermittent episodes of nausea and vomiting while in the ER. HEENT: Pupils are round and equally reacting to light. EOMI. No scleral icterus. No conjunctival pallor. Normocephalic, atraumatic. No pharyngeal erythema. No thyromegaly. CARDIOVASCULAR: S1 and S2 present. No murmurs, rubs, or gallops. -PULMONARY: Chest is clear to auscultation,. Decreased breath sounds in the lung bases with some crackers -ABDOMEN: Soft, generalized abdominal pain, more on the left lower side, no rebound tenderness, no guarding, distended, normoactive bowel sounds. No palpable organomegaly. Solares catheter is in place MUSCULOSKELETAL: No joint swelling or deformity. EXTREMITIES: No cyanosis, clubbing, or pedal edema. NEUROLOGICAL: Alert and oriented 3, no gross focal neurologic deficits. Psychiatric: Normal mood affect and normal mental status examination. SKIN: No rashes. No petechiae Results - Laboratory Findings CBC and BMP: 12/22/19 00:02 12/22/19 00:02 PT/INR, D-dimer PT 12.9 sec (9.0-12.0) H 12/22/19 00:02 INR 1.3 (<1.2) H 12/22/19 00:02 D-Dimer 2.32 mg/L FEU (<0.60) H 12/22/19 00:02 Abnormal lab findings: Abnormal Labs 12/22/19 12/22/19 12/22/19 00:02 00:02 00:02 WBC 0.1 L* RBC 3.44 L Hgb 10.5 L Hct 32.2 L Plt Count 92 L PT 12.9 H INR 1.3 H D-Dimer 2.32 H Sodium 129 L Chloride 88 L Carbon Dioxide 31 H BUN 26 H Creatinine 1.06 H Glucose 171 H Plasma Lactic Acid Toño Magnesium 1.1 L Ferritin 576.0 H Total Bilirubin 3.0 H AST 38 H Lactate Dehydrogenase 785 H C-Reactive Protein 176.0 H Albumin 3.4 L Procalcitonin Urine Appearance Urine Protein Urine Blood Ur Leukocyte Esterase Urine WBC Ur Squamous Epith Cells Amorphous Sediment Urine Bacteria Urine Mucus 12/22/19 12/22/19 12/22/19 00:02 00:02 03:15 WBC RBC Hgb Hct Plt Count PT INR D-Dimer Sodium Chloride Carbon Dioxide BUN Creatinine Glucose Plasma Lactic Acid Toño 2.6 H* 3.7 H* Magnesium Ferritin Total Bilirubin AST Lactate Dehydrogenase C-Reactive Protein Albumin Procalcitonin 0.46 H Urine Appearance Urine Protein Urine Blood Ur Leukocyte Esterase Urine WBC Ur Squamous Epith Cells Amorphous Sediment Urine Bacteria Urine Mucus 12/22/19 12/22/19 12/22/19 06:31 10:04 12:05 WBC RBC Hgb Hct Plt Count PT INR D-Dimer Sodium Chloride Carbon Dioxide BUN Creatinine Glucose Plasma Lactic Acid Toño 4.1 H* 5.8 H* Magnesium Ferritin Total Bilirubin AST Lactate Dehydrogenase C-Reactive Protein Albumin Procalcitonin Urine Appearance Cloudy H Urine Protein 1+ H Urine Blood Small H Ur Leukocyte Esterase Small H Urine WBC 6 H Ur Squamous Epith Cells 5 H Amorphous Sediment Rare H Urine Bacteria Many H Urine Mucus Occasional H - Diagnostic Findings CT scan - chest: image reviewed (As noted in HPI.) Assessment and Plan Assessment: Impression: Gram-negative sepsis and bacteremia Pancytopenia, secondary to recent chemotherapy. Possible pneumonia, gram-negative considering the patient is pancytopenic. Underlying malignancy with features of small cell and non-small cell lung ca ncer. Chronic obstructive pulmonary disease, presently inactive. Acute on chronic hypoxic respiratory failure, secondary to COPD, pneumonia, and sepsis History of malignant melanoma left cheek. Onset 01/27/2019. GERD without esophagitis. Type 2 diabetes. Benign essential hypertension. Recommendation: Patient will be admitted to the ICU. She received significant amount of fluid boluses in the ER, She'll be placed on antibiotics in the form of cefepime and vancomycin. Patient will have alvarado cultures including blood and urine. And sputum. Should be monitored closely in the ICU. GI and DVT prophylaxis. Hemodynamic support if necessary using compresses. We'll continue to follow closely. Prognosis is definitely guarded. Critical care time is 55 minutes Time with Patient: Greater than 30
--- NOTE | 2019-12-22 18:13 | P.CONS ---
History of Present Illness - Reason for Consult Consult date: 12/22/19 NSCLC on chemo Requesting physician: Julio Bosch - Chief Complaint fever - History of Present Illness Mrs. Tinsley is a very pleasant 69-year-old female patient of Dr. Valladares. Initially seen by him in 2011. She was diagnosed with non-small cell lung cancer in 2002, treated with definitive chemoradiation. Patient had a right lower lobe small cell lung cancer diagnosed in 2006, treated with chemotherapy. Patient has had no evidence of disease recurrence and has been on follow-up. 01/15/19 had Lt facial lesion resected by Dermatology-2.7 cm, Sukumar Level IV, superficially spreading melanoma with positive lateral margins, Irina anoma in situ and positive deep margins for invasive Melanoma. Patient was seen by Dr. Valladares with reports from [facility]. Lt cervical mass, biopsy + for NSCLC, staging PET 09/2019, revealed uptake in RLL, Lt cervical LN, ? liver mets. PD-L1 0%. She is BRCA positive. NGS, no actionable mutation. Pt had C1D8 of chemo Sunday (Day 1 carbo/abraxane/keytruda, Day 8 abraxane), she did receive onpro(neulasta) which would have infused on Sunday. She contacted service with c/o progressive fatigue, malaise, she did have a fever 101.5 F at home. She is having abd discomfort, diarrhea-some liquid stool every time she sits on the toilet-she does not feel she is urinating adequately, abd feels distended. Denies rigors, has mild oral irritation, no sore throat, SOB is stable, no hemoptysis, purulent sputum production, chest pain, dysuria, hematuria, hematochezia, swelling, new MS c/o, has generalized weakness, no numbness, tingling or confusion. Review of Systems 14 point ROS is negative except as stated in HPI Past Medical History Past Medical History: Cancer, COPD, Diabetes Mellitus Additional Past Medical History / Comment(s): lung CA X2 with chemo therapy and radiation. History of Any Multi-Drug Resistant Organisms: None Reported Past Surgical History: Bladder Surgery, Hernia Repair, Tonsillectomy, Tubal Ligation Past Anesthesia/Blood Transfusion Reactions: No Reported Reaction Additional Past Anesthesia/Blood Transfusion Reaction / Comm: blood transfusion 2005 Past Psychological History: No Psychological Hx Reported Smoking Status: Former smoker Past Alcohol Use History: Occasional Past Drug Use History: None Reported - Past Family History Father Family Medical History: Cancer Additional Family Medical History / Comment(s): lung cancer father and brother, daughter breast and ovarian CA Brother(s) Family Medical History: Cancer Additional Family Medical History / Comment(s): 2 brothers with lung cancer. Daughter(s) Family Medical History: Cancer Additional Family Medical History / Comment(s): . Breast/ovarian cancers. Medications and Allergies Home Medications Medication Instructions Recorded Confirmed Type Albuterol Inhaler (Mhu) [Ventolin 2 puff INHALATION RT-Q6H PRN 12/19/16 12/22/19 History Hfa Inhaler] Albuterol Nebulized [Ventolin 2.5 mg INHALATION RT-Q4H 12/19/16 12/22/19 History Nebulized] Atenolol [Tenormin] 25 mg PO BID 12/19/16 12/22/19 History Loratadine [Claritin] 10 mg PO HS 12/19/16 12/22/19 History Potassium Gluconate 99 mg PO BID 12/19/16 12/22/19 History Spironolactone [Aldactone] 25 mg PO DAILY 12/19/16 12/22/19 History Acetaminophen Tab [Tylenol Tab] 500 - 1,000 mg PO QID PRN 12/22/19 12/22/19 History Dronabinol [Marinol] 5 mg PO HS 12/22/19 12/22/19 History Fluconazole 200 mg PO DAILY 12/22/19 12/22/19 History Fluticasone/Vilanterol [Breo 1 puff INHALATION RT-DAILY 12/22/19 12/22/19 History Ellipta 200-25 Mcg INH] Prochlorperazine [Compazine] 10 mg PO Q6H PRN 12/22/19 12/22/19 History Torsemide [Demadex] 20 mg PO DAILY 12/22/19 12/22/19 History Vitamin D3(Unknown) 1 tab PO BID 12/22/19 12/22/19 History Allergies Allergy/AdvReac Type Severity Reaction Status Date / Time guaifenesin [From Mucinex] AdvReac Nausea & Verified 12/22/19 08:20 Vomiting Sulfa (Sulfonamide AdvReac headache Verified 12/22/19 08:20 Antibiotics) Physical Exam Vitals: Vital Signs Temp Pulse Resp BP Pulse Ox 12/22/19 08:49 112 H 12/22/19 08:38 112 H 12/22/19 08:00 20 12/22/19 05:51 116 H 12/22/19 05:43 117 H 12/22/19 03:17 124 H 26 H 96 12/22/19 02:00 129 H 20 117/40 97 12/22/19 01:56 128 H 17 117/40 96 12/22/19 01:30 131 H 20 118/49 99 12/22/19 01:00 138 H 22 129/72 98 12/22/19 00:44 99.1 F 12/22/19 00:30 141 H 19 90/69 97 12/22/19 00:20 141 H 12/22/19 00:09 130 H 12/22/19 00:00 133 H 20 126/58 100 12/21/19 23:55 130 H 12/21/19 23:45 130 H 12/21/19 23:30 131 H 18 117/57 100 12/21/19 23:25 99 12/21/19 23:11 101.9 F H 120 H 30 H 102/60 83 L Intake and Output 12/21/19 12/22/19 12/22/19 22:59 06:59 14:59 Other: Weight 90.718 kg - Constitutional General appearance: cooperative, mild distress, obese - EENT Eyes: anicteric sclerae, EOMI ENT: hearing grossly normal, normal oropharynx, thrush (scant) - Neck Neck: lymphadenopathy (left 2.5cm submandibular mass) - Respiratory Respiratory: bilateral: diminished - Cardiovascular Rhythm: regular Heart sounds: normal: S1, S2 Abnormal Heart Sounds: no systolic murmur, no diastolic murmur, no rub, no S3 Gallop, no S4 Gallop, no click, no other leg Peripheral Edema: bilateral: None - Gastrointestinal General gastrointestinal: no absent bowel sounds, no decreased bowel sounds, distended, no hepatomegaly, no hyperactive bowel sounds, normal bowel sounds, no organomegaly, no rigid, no scaphoid, soft, no splenomegaly, tenderness, no umbilical hernia, no ventral hernia - Integumentary Integumentary: normal - Neurologic Neurologic: CNII-XII intact - Musculoskeletal Musculoskeletal: generalized weakness, strength equal bilaterally - Psychiatric Psychiatric: A&O x's 3, appropriate affect, intact judgment & insight Results CBC & Chem 7: 12/22/19 00:02 12/22/19 00:02 Labs: Abnormal Lab Results - Last 24 Hours (Table) 12/22/19 12/22/19 12/22/19 Range/Units 00:02 00:02 00:02 WBC 0.1 L* (3.8-10.6) k/uL RBC 3.44 L (3.80-5.40) m/uL Hgb 10.5 L (11.4-16.0) gm/dL Hct 32.2 L (34.0-46.0) % Plt Count 92 L (150-450) k/uL PT 12.9 H (9.0-12.0) sec INR 1.3 H (<1.2) D-Dimer 2.32 H (<0.60) mg/L FEU Sodium 129 L (137-145) mmol/L Chloride 88 L (98-107) mmol/L Carbon Dioxide 31 H (22-30) mmol/L BUN 26 H (7-17) mg/dL Creatinine 1.06 H (0.52-1.04) mg/dL Glucose 171 H (74-99) mg/dL Plasma Lactic Acid Toño (0.7-2.0) mmol/L Magnesium 1.1 L (1.6-2.3) mg/dL Total Bilirubin 3.0 H (0.2-1.3) mg/dL AST 38 H (14-36) U/L Lactate Dehydrogenase 785 H (313-618) U/L C-Reactive Protein 176.0 H (<10.0) mg/L Albumin 3.4 L (3.5-5.0) g/dL 12/22/19 12/22/19 12/22/19 Range/Units 00:02 03:15 06:31 WBC (3.8-10.6) k/uL RBC (3.80-5.40) m/uL Hgb (11.4-16.0) gm/dL Hct (34.0-46.0) % Plt Count (150-450) k/uL PT (9.0-12.0) sec INR (<1.2) D-Dimer (<0.60) mg/L FEU Sodium (137-145) mmol/L Chloride (98-107) mmol/L Carbon Dioxide (22-30) mmol/L BUN (7-17) mg/dL Creatinine (0.52-1.04) mg/dL Glucose (74-99) mg/dL Plasma Lactic Acid Toño 2.6 H* 3.7 H* 4.1 H* (0.7-2.0) mmol/L Magnesium (1.6-2.3) mg/dL Total Bilirubin (0.2-1.3) mg/dL AST (14-36) U/L Lactate Dehydrogenase (313-618) U/L C-Reactive Protein (<10.0) mg/L Albumin (3.5-5.0) g/dL CT scan - chest: report reviewed (no PE, Lt hilar LAD, LLL spiculated infiltrate) US - abdomen: report reviewed (gallstones) Assessment and Plan (1) Neutropenic typhlitis Narrative/Plan: NPO except Ice chips and meds, close monitoring for any increased pain CT AP IVF D5.9 ID consulted Current Visit: Yes Status: Acute Priority: High Code(s): K36 - OTHER BOB ENDICITIS SNOMED Code(s): 7673071 (2) Neutropenic fever Narrative/Plan: GCSF given 48 hours ago, no additional GCSF at this time Pancultures pending Empiric abx ID consulted Current Visit: Yes Status: Acute Priority: High Code(s): D70.9 - NEUTROPENIA, UNSPECIFIED; R50.81 - FEVER PRESENTING WITH CONDITIONS CLASSIFIED ELSEWHERE SNOMED Code(s): 965899366 Plan: Doctor attests: I performed a history and physical examination of this patient, developed impression and plan of care. Discussed with dictator. I agree with dictators note, documented as a scribe.
[2019-12-22] MEDS ORDERED: LEVOFLOXACIN 500MG-D5W PMX 500 MG in DEXTROSE/WATER 1 100ML.BAG IVPB SCH (18:15)
[2019-12-22 18:55] LABS: ABG Base Excess -3.7 mmol/L; ABG HCO3 22 mmol/L (21-25); ABG Oxygen Saturation 98.6 % (94-97); ABG PCO2 40 mmHg (35-45); ABG PH 7.35 (7.35-7.45); ABG PO2 102 mmHg (83-108); ABG TCO2 23 mmol/L (19-24); Allen Test Performed? Yes
[2019-12-22] MEDS: FAMOTIDINE 20 MG/2 ML VIAL IV SCH (19:32)
[2019-12-22] MEDS ORDERED: PROCHLORPERAZINE 10 MG TAB PO PRN (19:36)
[2019-12-22] MEDS ORDERED: HEPARIN SODIUM,PORCINE 5,000 UNIT/ML 1 ML VIAL SQ SCH (21:00)
[2019-12-22 21:35] LABS: Glucose,Whole Blood 190 mg/dL (75-99)
--- NOTE | 2019-12-22 23:50 | P.CONS ---
History of Present Illness - Reason for Consult Consult date: 12/22/19 Neutropenic sepsis Requesting physician: Brad E Sheet - Chief Complaint Fever and generalized weakness times few days - History of Present Illness Patient is a 69 year female with a past medical history significant for lung cancer in this patient last chemo has been on Sunday few days ago, patient mentioned she will not feeling that great on Sunday and Sunday she started having a fever with rigors and chills patient complaining of generalized weakness and no energy no appetite and decreased oral intake patient denies having any headache or URI symptoms, denies having any chest pain patient has been complaining of shortness of breath on minimal exertion did have minimal cough no purulence no hemoptysis , patient is slight nausea but no vomiting and no abdominal pain and did have some diarrhea, patient on arrival to the ER did have fever of 101F patient was tachycardic with a white count of 0.1, patient did have CT angiogram the chest which was negative for PE did show some right lower lobe lobulated fluid and infiltrate and also show evidence of gallstone and ultrasound of the abdomen did not show any features suggestive of cholecystitis patient did have elevated bilirubin of 3.0, patient has been started on vancomycin and cefepime blood cultures subsequently Gram-positive and gram-negative bacilli infection disease has been consulted for further management of antibiotic therapy Review of Systems Positive point has been mentioned in the HPI rest of the systems are negative Past Medical History Past Medical History: Cancer, COPD, Diabetes Mellitus Additional Past Medical History / Comment(s): lung CA X2 with chemo therapy and radiation. History of Any Multi-Drug Resistant Organisms: None Reported Past Surgical History: Bladder Surgery, Hernia Repair, Tonsillectomy, Tubal Ligation Additional Past Surgical History / Comment(s): Bladder suspension, abdominal hernia repair, colonoscopy. Past Anesthesia/Blood Transfusion Reactions: No Reported Reaction Additional Past Anesthesia/Blood Transfusion Reaction / Comm: blood transfusion 2005 Smoking Status: Former smoker - Past Family History Father Family Medical History: Cancer Additional Family Medical History / Comment(s): lung cancer father and brother, daughter breast and ovarian CA Brother(s) Family Medical History: Cancer Additional Family Medical History / Comment(s): 2 brothers with lung cancer. Daughter(s) Family Medical History: Cancer Additional Family Medical History / Comment(s): . Breast/ovarian cancers. Medications and Allergies Home Medications Medication Instructions Recorded Confirmed Type Albuterol Inhaler (Mhu) [Ventolin 2 puff INHALATION RT-Q6H PRN 12/19/16 12/22/19 History Hfa Inhaler] Albuterol Nebulized [Ventolin 2.5 mg INHALATION RT-Q4H 12/19/16 12/22/19 History Nebulized] Atenolol [Tenormin] 25 mg PO BID 12/19/16 12/22/19 History Loratadine [Claritin] 10 mg PO HS 12/19/16 12/22/19 History Potassium Gluconate 99 mg PO BID 12/19/16 12/22/19 History Spironolactone [Aldactone] 25 mg PO DAILY 12/19/16 12/22/19 History Acetaminophen Tab [Tylenol Tab] 500 - 1,000 mg PO QID PRN 12/22/19 12/22/19 History Dronabinol [Marinol] 5 mg PO HS 12/22/19 12/22/19 History Fluconazole 200 mg PO DAILY 12/22/19 12/22/19 History Fluticasone/Vilanterol [Breo 1 puff INHALATION RT-DAILY 12/22/19 12/22/19 History Ellipta 200-25 Mcg INH] Prochlorperazine [Compazine] 10 mg PO Q6H PRN 12/22/19 12/22/19 History Torsemide [Demadex] 20 mg PO DAILY 12/22/19 12/22/19 History Vitamin D3(Unknown) 1 tab PO BID 12/22/19 12/22/19 History Allergies Allergy/AdvReac Type Severity Reaction Status Date / Time guaifenesin [From Mucinex] AdvReac Nausea & Verified 12/22/19 08:20 Vomiting Sulfa (Sulfonamide AdvReac headache Verified 12/22/19 08:20 Antibiotics) Physical Exam Vitals: Vital Signs Temp Pulse Resp BP Pulse Ox 12/22/19 14:00 130 H 22 97/77 97 12/22/19 13:00 114 H 22 90/55 96 12/22/19 12:47 115 H 20 90/55 99 12/22/19 12:00 117 H 25 H 102/41 12/22/19 11:40 108 H 12/22/19 11:26 113 H 12/22/19 11:00 112 H 19 102/41 12/22/19 10:00 112 H 12/22/19 09:00 98 F 108 H 20 102/41 100 12/22/19 08:49 112 H 12/22/19 08:38 112 H 12/22/19 08:00 20 12/22/19 06:00 99 12/22/19 05:51 116 H 12/22/19 05:43 117 H 12/22/19 05:00 116 H 12/22/19 04:00 95/58 12/22/19 03:17 124 H 26 H 96 12/22/19 03:00 121 H 35 H 91/39 98 12/22/19 02:00 129 H 20 117/40 97 12/22/19 01:56 128 H 17 117/40 96 12/22/19 01:30 131 H 20 118/49 99 12/22/19 01:00 138 H 22 129/72 98 12/22/19 00:44 99.1 F 12/22/19 00:30 141 H 19 90/69 97 12/22/19 00:20 141 H 12/22/19 00:09 130 H 12/22/19 00:00 133 H 20 126/58 100 12/21/19 23:55 130 H 12/21/19 23:45 130 H 12/21/19 23:30 131 H 18 117/57 100 12/21/19 23:25 99 12/21/19 23:11 101.9 F H 120 H 30 H 102/60 83 L Intake and Output 12/22/19 12/22/19 12/22/19 06:59 14:59 22:59 Other: Weight 90.718 kg 90.718 kg GENERAL DESCRIPTION: Elderly female lying in bed, no distress. No tachypnea or accessory muscle of respiration use. HEENT: Shows Pallor , no scleral icterus. Oral mucous membrane is dry. No pharyngeal erythema or thrush NECK: Trachea central, no thyromegaly. LUNGS: Unlabored breathing. Decreased breath sound at the base No wheeze or crackle. HEART: S1, S2, regular rate and rhythm. No loud murmur ABDOMEN: Soft, no tenderness , guarding or rigidity, no organomegaly EXTREMITIES: No edema of feet. SKIN: No rash, no masses palpable. NEUROLOGICAL: The patient is awake, alert, oriented x3, mood and affect normal. Results CBC & Chem 7: 12/22/19 00:02 12/22/19 00:02 Labs: Abnormal Lab Results - Last 24 Hours (Table) 12/22/19 12/22/19 12/22/19 Range/Units 00:02 00:02 00:02 WBC 0.1 L* (3.8-10.6) k/uL RBC 3.44 L (3.80-5.40) m/uL Hgb 10.5 L (11.4-16.0) gm/dL Hct 32.2 L (34.0-46.0) % Plt Count 92 L (150-450) k/uL PT 12.9 H (9.0-12.0) sec INR 1.3 H (<1.2) D-Dimer 2.32 H (<0.60) mg/L FEU Sodium 129 L (137-145) mmol/L Chloride 88 L (98-107) mmol/L Carbon Dioxide 31 H (22-30) mmol/L BUN 26 H (7-17) mg/dL Creatinine 1.06 H (0.52-1.04) mg/dL Glucose 171 H (74-99) mg/dL Plasma Lactic Acid Toño (0.7-2.0) mmol/L Magnesium 1.1 L (1.6-2.3) mg/dL Ferritin 576.0 H (10.0-291.0) ng/mL Total Bilirubin 3.0 H (0.2-1.3) mg/dL AST 38 H (14-36) U/L Lactate Dehydrogenase 785 H (313-618) U/L C-Reactive Protein 176.0 H (<10.0) mg/L Albumin 3.4 L (3.5-5.0) g/dL Procalcitonin (0.02-0.09) ng/mL Urine Appearance (Clear) Urine Protein (Negative) Urine Blood (Negative) Ur Leukocyte Esterase (Negative) Urine WBC (0-5) /hpf Ur Squamous Epith Cells (0-4) /hpf Amorphous Sediment (None) /hpf Urine Bacteria (None) /hpf Urine Mucus (None) /hpf 12/22/19 12/22/19 12/22/19 Range/Units 00:02 00:02 03:15 WBC (3.8-10.6) k/uL RBC (3.80-5.40) m/uL Hgb (11.4-16.0) gm/dL Hct (34.0-46.0) % Plt Count (150-450) k/uL PT (9.0-12.0) sec INR (<1.2) D-Dimer (<0.60) mg/L FEU Sodium (137-145) mmol/L Chloride (98-107) mmol/L Carbon Dioxide (22-30) mmol/L BUN (7-17) mg/dL Creatinine (0.52-1.04) mg/dL Glucose (74-99) mg/dL Plasma Lactic Acid Toño 2.6 H* 3.7 H* (0.7-2.0) mmol/L Magnesium (1.6-2.3) mg/dL Ferritin (10.0-291.0) ng/mL Total Bilirubin (0.2-1.3) mg/dL AST (14-36) U/L Lactate Dehydrogenase (313-618) U/L C-Reactive Protein (<10.0) mg/L Albumin (3.5-5.0) g/dL Procalcitonin 0.46 H (0.02-0.09) ng/mL Urine Appearance (Clear) Urine Protein (Negative) Urine Blood (Negative) Ur Leukocyte Esterase (Negative) Urine WBC (0-5) /hpf Ur Squamous Epith Cells (0-4) /hpf Amorphous Sediment (None) /hpf Urine Bacteria (None) /hpf Urine Mucus (None) /hpf 12/22/19 12/22/19 12/22/19 Range/Units 06:31 10:04 12:05 WBC (3.8-10.6) k/uL RBC (3.80-5.40) m/uL Hgb (11.4-16.0) gm/dL Hct (34.0-46.0) % Plt Count (150-450) k/uL PT (9.0-12.0) sec INR (<1.2) D-Dimer (<0.60) mg/L FEU Sodium (137-145) mmol/L Chloride (98-107) mmol/L Carbon Dioxide (22-30) mmol/L BUN (7-17) mg/dL Creatinine (0.52-1.04) mg/dL Glucose (74-99) mg/dL Plasma Lactic Acid Toño 4.1 H* 5.8 H* (0.7-2.0) mmol/L Magnesium (1.6-2.3) mg/dL Ferritin (10.0-291.0) ng/mL Total Bilirubin (0.2-1.3) mg/dL AST (14-36) U/L Lactate Dehydrogenase (313-618) U/L C-Reactive Protein (<10.0) mg/L Albumin (3.5-5.0) g/dL Procalcitonin (0.02-0.09) ng/mL Urine Appearance Cloudy H (Clear) Urine Protein 1+ H (Negative) Urine Blood Small H (Negative) Ur Leukocyte Esterase Small H (Negative) Urine WBC 6 H (0-5) /hpf Ur Squamous Epith Cells 5 H (0-4) /hpf Amorphous Sediment Rare H (None) /hpf Urine Bacteria Many H (None) /hpf Urine Mucus Occasional H (None) /hpf Microbiology - Last 24 Hours (Table) 12/22/19 00:02 Blood Culture - Final Blood Assessment and Plan Assessment: 1- patient presented to hospital with sepsis in this patient who did have a fever tachycardia and elevated white count of 0.1, patient did have mildly elev ated bilirubin with evidence of gallstone and now positive blood culture with gram-negative bacilli source is likely biliary, underlying pneumonia and a slightly been entirely excluded in view of some loculated fluid seen on the right lower lung 2- patient with sulfa ALLERGY 3-underlying chemo and immunodeficiency (1) Sepsis Current Visit: Yes Status: Acute Code(s): A41.9 - SEPSIS, UNSPECIFIED ORGANISM SNOMED Code(s): 75590409 (2) Gram-negative bacteremia Current Visit: Yes Status: Acute Code(s): R78.81 - BACTEREMIA SNOMED Code(s): 018901426293 (3) Febrile neutropenia Current Visit: Yes Status: Acute Code(s): D70.9 - NEUTROPENIA, UNSPECIFIED; R50.81 - FEVER PRESENTING WITH CONDITIONS CLASSIFIED ELSEWHERE SNOMED Code(s): 989248548 Plan: 1- blood cultures will be repeated to document clearance of bacteremia 2-cefazolin 2 g every 8 hours while waiting for the final ID and sensitivity to this pathogen 3-IV fluids We will follow on clinical condition and cultures to further adjust medication if needed Thank you for this consultation will follow this patient with you Time with Patient: Greater than 30
[2019-12-23] MEDS: ONDANSETRON 4 MG/2 ML VIAL IVP PRN ×2 (01:00→09:43)
[2019-12-23] MEDS ORDERED: VANCOMYCIN 1,500 MG in SODIUM CHLORIDE 0.9% 250 ML IVPB SCH (03:00)
[2019-12-23] MEDS: ALBUTEROL NEBULIZED 2.5 MG/3 ML INHALATION SCH ×5 (03:21→19:10)
[2019-12-23 05:44] LABS: Calcium 6.8 mg/dL (8.4-10.2); Magnesium 1.7 mg/dL (1.6-2.3); Potassium 3.7 mmol/L (3.5-5.1)
[2019-12-23] MEDS ORDERED: Potassium Replacement Protocol 1 EACH MISC MISCELLANE PRN (05:46)
[2019-12-23] MEDS ORDERED: Magnesium Replacement Protocol 1 EACH MISC MISCELLANE PRN (05:47)
[2019-12-23] MEDS: POTASSIUM CHLORIDE 10 MEQ in WATER FOR INJECTION 1 100ML.BAG IVPB SCH ×2 (05:53→06:54)
[2019-12-23] MEDS: MAGNESIUM SULFATE-D5W PMX 1 GM in DEXTROSE/WATER 1 100ML.BAG IVPB SCH ×2 (05:53→06:54)
[2019-12-23 06:07] LABS: HCT 26.9 % (34.0-46.0); MCH 32.1 pg (25.0-35.0); MCHC 33.1 g/dL (31.0-37.0); MCV 96.9 fL (80.0-100.0); Mean Platelet Volume 11.2; RBC 2.78 m/uL (3.80-5.40); RDW 13.6 % (11.5-15.5)
[2019-12-23 06:24] LABS: HGB 8.9 gm/dL (11.4-16.0); WBC 0.1 k/uL (3.8-10.6)
[2019-12-23 06:25] LABS: Platelet Count 40 k/uL (150-450)
[2019-12-23] MEDS: DEXTROSE 5%-0.9% NACL 1,000 ML IV SCH ×2 (06:42→16:26)
--- NOTE | 2019-12-23 07:10 | XR ---
EXAMINATION TYPE: XR chest 1V DATE OF EXAM: 12/23/2019 HISTORY: Shortness of breath. COMPARISON: 12/22/2019 TECHNIQUE: Single view of the chest is submitted. FINDINGS: Demonstrated are scattered senescent parenchymal change. Right lower lobe opacity persists which may reflect a combination of atelectasis, infiltrate and/or e ffusion. Pulmonary venous congestion is significantly improved since prior study. The heart is stable. Hilar and mediastinal structures are within normal limits. Degenerative changes are seen of the dorsal spine. IMPRESSION: 1. Right lower lobe opacity persists which may reflect a combination of atelectasis, infiltrate and/ or effusion. Pulmonary venous congestion is significantly improved since prior study.
[2019-12-23] MEDS: CEFEPIME 2 GM in SODIUM CHLORIDE 0.9% 100 ML IVPB SCH ×3 (08:14→23:08)
[2019-12-23] MEDS: PANTOPRAZOLE 40 MG/10 ML VIAL IV SCH (08:14)
[2019-12-23] MEDS: FAMOTIDINE 20 MG/2 ML VIAL IV SCH ×2 (08:14→20:42)
[2019-12-23] MEDS ORDERED: ACETAMINOPHEN TAB 500 MG TAB PO PRN (08:23)
--- NOTE | 2019-12-23 11:10 | ECHOF ---
Referral Reason:Rule out heart disease MEASUREMENTS -------- HEIGHT: 160.0 cm WEIGHT: 98.0 kg BP: 119/56 RVIDd: 2.8 cm (< 3.3) IVSd: 1.0 cm (0.6 - 1.1) LVIDd: 3.4 cm (3.9 - 5.3) LVPWd: 1.1 cm (0.6 - 1.1) IVSs: 1.7 cm LVIDs: 1.9 cm LVPWs: 1.3 cm LA Diam: 3.6 cm (2.7 - 3.8) LAESV Index (A-L): 19.23 ml/m Ao Diam: 3.0 cm (2.0 - 3.7) AV Cusp: 2.4 cm (1.5 - 2.6) MV EXCURSION: 17.354 mm (> 18.000) MV EF SLOPE: 102 mm/s (70 - 150) EPSS: 0.5 cm MV E Saurabh: 1.40 m/s MV DecT: 113 ms MV A Saurabh: 1.54 m/s MV E/A Ratio: 0.91 RAP: 5.00 mmHg RVSP: 41.12 mmHg FINDINGS -------- Resting tachycardia (HR>100bpm). This was a technically adequate study. The left ventricular size is normal. There is borderline concentric left ventricular hypertrophy. Overall left ventricular systolic function is normal with, an EF between 60 - 65 %. The right ventricle is normal in size. Normal LA size by volume 22+/-6 ml/m2. The right atrium is normal in size. Interatrial and interventricular septum intact. The aortic valve is trileaflet and appears structurally normal. Mild mitral annular calcification present. Mild tricuspid regurgitation present. There is mild pulmonary hypertension. The right ventricular systolic pressure, as measured by Doppler, is 41.12mmHg. The pulmonic valve was not well visualized. The aortic root size is normal. Normal inferior vena cava with normal inspiratory collapse consistent with estimated right atrial pre ssure of 5 mmHg. There is no pericardial effusion. CONCLUSIONS -------- 1. Resting tachycardia (HR>100bpm). 2. This was a technically adequate study. 3. The left ventricular size is normal. 4. There is borderline concentric left ventricular hypertrophy. 5. Overall left ventricular systolic function is normal with, an EF between 60 - 65 %. 6. The right ventricle is normal in size. 7. Normal LA size by volume 22+/-6 ml/m2. 8. The right atrium is normal in size. 9. Interatrial and interventricular septum intact. 10. The aortic valve is trileaflet and appears structurally normal. 11. Mild mitral annular calcification present. 12. Mild tricuspid regurgitation present. 13. There is mild pulmonary hypertension. 14. The right ventricular systolic pressure, as measured by Doppler, is 41.12mmHg. 15. The pulmonic valve was not well visualized. 16. The aortic root size is normal. 17. Normal inferior vena cava with normal inspiratory collapse consistent with estimated right atrial pressure of 5 mmHg. 18. There is no pericardial effusion. CONSERVATION ENGINEER: Mgay Campbell RDCS
--- NOTE | 2019-12-23 12:23 | CT ---
EXAMINATION TYPE: CT abdomen pelvis w con DATE OF EXAM: 12/23/2019 COMPARISON: Correlation CT chest 12/22/2019 HISTORY: 69-year-old female abdominal pain, fever TECHNIQUE: Contiguous axial scanning of the abdomen and pelvis following administration of 100 ml Iso olga lidia 300 IV contrast. Delayed images through the kidneys and coronal/sagittal reconstructions perform ed. CT DLP: 1514.1 mGycm Automated exposure control for dose reduction was used. FINDINGS: Redemonstrated small right pleural effusion with volume loss and distortion at the right infrahilar r egion and base. New small left pleural effusion with adjacent atelectasis. Heart remains borderline in size. Contrast seen within the distal esophagus and filling the stomach. Generalized breathing motion artifacts. Nodular hepatic contour. No focal liver lesion seen. There is a large, recanalized umbilical vein. Hydropic gallbladder measuring 4.8 cm wide with small layering gallstones. Mild pericholecystic edema though there is additional generalized edema throughout the mesenteric fat and retroperitoneum likel y relating to anasarca change. Adrenal glands, spleen, and pancreas appear within normal limits. Symmetric uptake of contrast by the kidneys though delayed excretion on both sides should be correlat ed with patient's renal function. No dilated small bowel or free air. Trace interloop ascites is present along with generalized anasarc a change. No significant stool burden. There is moderate circumferential wall thickening along the cecum and as cending colon with a mild surrounding fat stranding. Additional mild wall thickening suggested in the sigmoid colon could relate to nondistention. There is some generalized hazy pericolonic density that could represent inflammation. A few scattered prominent lymph nodes are present in the upper abdomen, for example, in the gastrohep atic ligament region measuring 1.3 cm and leroy hepatis measuring 9 mm, probably reactive. Mild atherosclerotic calcifications infrarenal abdominal aorta and iliac arteries. Solares catheter is in place decompressing the bladder. Intraluminal bladder air likely relating to ins trumentation. Mild pelvic free fluid. Uterus is visualized. Suspect small bilateral ovaries. No pelvi c lymphadenopathy seen. Bones: End-stage degenerative changes left hip and moderate at the right hip. Hypertrophic facet arth ropathy throughout the lumbar spine. [facility] within the lower thoracic spine. Chronic appearing anterior wedging deformity of L1 vertebral body and mild retropulsion into the ventral spinal canal at this l evel. Grade 1 anterolisthesis of L4-L5. IMPRESSION: 1. NONSPECIFIC SEGMENTAL AREAS OF MODERATE INFECTIOUS/INFLAMMATORY COLITIS. 2. CIRRHOSIS AND SUSPECTED PORTAL VENOUS HYPERTENSION GIVEN A RECANALIZED UMBILICAL VEIN. GENERALIZED ANASARCA CHANGE AND TRACE ASCITES FLUID. 3. REDEMONSTRATED CHANGES AT THE RIGHT LUNG BASE DESCRIBED ON 12/22/2019 CT CHEST. THERE IS A NEW S MALL LEFT PLEURAL EFFUSION COMPARED TO THEN. 4. HYDROPIC GALLBLADDER WITH CHOLELITHIASIS. HYDROPIC CHANGE MAY RELATE TO LASTING STATE. IF CONCERN FOR EARLY ACUTE CHOLECYSTITIS, HIDA SCAN CAN BE CONSIDERED.
[2019-12-23] MEDS ORDERED: DILTIAZEM DRIP BOLUS FROM BAG 1 MG SOLN IV ONE (12:37)
--- NOTE | 2019-12-23 12:51 | P.PN ---
Subjective Progress Note Date: 12/23/19 Principal diagnosis: Gram-negative bacteremia and sepsis with neutropenia. 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 Her diagnosis was initially established in 2006, and she has been in remission on 10 recently when she was noted to have recurrence of her malignancy. Started back on chemotherapy, Her last chemotherapy was on Sunday given to her and Dr. Valladares's office. Patient presented to the ER with multiple complaints including fever with temp of 101.3, weakness, malaise, diarrhea, abdominal pain, nausea and vomiting. Patient is normally on oxygen at 2-3 L/m, patient is not steroids dependent for her underlying COPD. She sees Dr. Urrutia on outpatient basis for her underlying COPD and known history underlying lung answer. Patient called her oncologist yesterday complaining of fever and multiple constitutional symptoms, and she was advised to come to the ER. While in the ER, the patient was noted to be tachy cardic, marginal blood pressure, neutropenic, elevated lactic acid, and her CT of the chest showed no evidence of pulmonary embolism, but there is masslike adenopathy in the left hilum and cavitary lesion , noted in the left lower lobe suspicious for tumor. I evaluated the patient in the ER, reviewed her chest x- ray, CT of the chest, and I strongly felt that the patient is septic. Blood culture is showing gram-negative rods. Hence the patient was started empirically on cefepime and on vancomycin until the final cultures become available. In the meantime I recommended transfer the patient to ICU is set of the regular medical floor/oncology. Patient was reevaluated today on 12/23/19, patient remains in the ICU, I saw yesterday in the emergency room, and the changes that admission from medical floor to the ICU. Overnight, the patient had to be placed on BiPAP. Presently on 2 L nasal cannula, O2 saturation is 97%. She was on BiPAP at 12/4 and 35%, however she had difficulty tolerating the BiPAP. Blood cultures came back positive for E. coli. At her chest x-ray is suspicious for a right lower lobe pneumonia/infiltrate. CT of the abdomen and pelvis, showed moderate colitis, cirrhosis, portal vein venous hypertension, generalized anasarca, and showed changes in the right base as noted previously on CT of the chest. New left small pleural effusion noted and there was evidence of hydropic gallbladder with cholelithiasis. Patient remains empirically on antibiotics in the form of cefepime and vancomycin. Still having intermittent episodes of fever. Continues to have pancytopenia with WBC count of 0.1 hemoglobin 8.9 and platelets are down to 40,000. Electrolytes and renal profile are relatively normal. Urinalysis seems to be relatively unremarkable except for pyuria and bacteriuria. Objective - Vital Signs Vital signs: Vital Signs Temp 100.9 F H 12/23/19 08:00 Pulse 132 H 12/23/19 11:31 Resp 29 H 12/23/19 11:00 BP 115/56 12/23/19 11:00 Pulse Ox 97 12/23/19 11:00 Intake & Output 12/22/19 12/23/19 12/23/19 18:59 06:59 18:59 Intake Total 1450 800 Output Total 1600 1155 270 Balance -1600 295 530 Weight 90.718 kg 98.2 kg Intake: IV 1450 800 Cefepime 2 gm In Sodium 100 100 Chloride 0.9% 100 ml @ 200 mls/hr IVPB Q8HR HAKAN Rx#:[id number] Dextrose 5%-0.9% NaCl 1, 900 500 000 ml @ 100 mls/hr IV . Q10H HAKAN Rx#:[id number] Magnesium Sulfate-D5w Pmx 100 100 1 gm In Dextrose/Water 1 100ml.bag @ 100 mls/hr IVPB Q1H HAKAN Rx#: [id number] Potassium Chloride 10 meq 100 100 In Water For Injection 1 100ml.bag @ 100 mls/hr IVPB Q1H HAKAN Rx#: [id number] Vancomycin 1,500 mg In 250 Sodium Chloride 0.9% 250 ml @ 125 mls/hr IVPB Q24H HAKAN Rx#:[id number] Output: Urine 1600 1155 270 Uretheral (Solares) 1600 Other: Voiding Method Indwelling Catheter Indwelling Catheter - Exam -GENERAL: Reveals 69-year-old female in no distress. On few liters nasal cannula. HEENT: PERRLA, EOMI, no icterus. CARDIOVASCULAR: Normal S1 and S2, no gallops. -PULMONARY: Chest is clear to auscultation,. Decreased breath sounds in the lung bases with some crackers -ABDOMEN: Soft, nontender, no megaly, no rebound, no guarding, positive bowel sounds MUSCULOSKELETAL: No joint swelling or deformity. EXTREMITIES: No cyanosis, clubbing, or pedal edema. NEUROLOGICAL: Alert and oriented 3, no gross focal neurologic deficits. Psychiatric: Normal mood affect and normal mental status examination. SKIN: No rashes. No petechiae - Labs CBC & Chem 7: 12/23/19 04:15 12/23/19 04:15 Labs: Abnormal Lab Results - Last 24 Hours (Table) 12/22/19 12/22/19 12/22/19 Range/Units 00:02 18:52 21:35 WBC (3.8-10.6) k/uL RBC (3.80-5.40) m/uL Hgb (11.4-16.0) gm/dL Hct (34.0-46.0) % Plt Count (150-450) k/uL ABG O2 Saturation 98.6 H (94-97) % Sodium (137-145) mmol/L BUN (7-17) mg/dL Creatinine (0.52-1.04) mg/dL Glucose (74-99) mg/dL POC Glucose (mg/dL) 190 H (75-99) mg/dL Calcium (8.4-10.2) mg/dL Procalcitonin 0.46 H (0.02-0.09) ng/mL 12/23/19 12/23/19 Range/Units 04:15 04:15 WBC 0.1 L* (3.8-10.6) k/uL RBC 2.78 L (3.80-5.40) m/uL Hgb 8.9 L D (11.4-16.0) gm/dL Hct 26.9 L (34.0-46.0) % Plt Count 40 L D (150-450) k/uL ABG O2 Saturation (94-97) % Sodium 132 L (137-145) mmol/L BUN 26 H (7-17) mg/dL Creatinine 1.12 H (0.52-1.04) mg/dL Glucose 206 H (74-99) mg/dL POC Glucose (mg/dL) (75-99) mg/dL Calcium 6.8 L (8.4-10.2) mg/dL Procalcitonin (0.02-0.09) ng/mL Microbiology - Last 24 Hours (Table) 12/22/19 20:00 Stool Culture - Preliminary Stool 12/22/19 00:02 Blood Culture Gram Stain - Preliminary Blood Blood Culture - Preliminary Escherichia coli 12/22/19 00:02 Blood Culture - Final Blood Assessment and Plan Assessment: Impression: Gram-negative sepsis and bacteremia Pancytopenia, secondary to recent chemotherapy. Possible right lower lobe pneumonia, gram-negative unless proven otherwise considering the patient is immunocompromised. Underlying malignancy with features of small cell and non-small cell lung canc er. Chronic obstructive pulmonary disease, presently inactive. Acute on chronic hypoxic respiratory failure, secondary to COPD, pneumonia, and sepsis History of malignant melanoma left cheek. Onset 01/27/2019. GERD without esophagitis. Type 2 diabetes. Benign essential hypertension. Acute colitis, could also be the primary source of her bacteremia. Recommendation: Continue to monitor in the ICU to Continue IV fluids. Continue cefepime and vancomycin. Follow up on all cultures including blood cultures sputum cultures and urine cultures are GI and DVT prophylaxis. Hemodynamic support if necessary using compresses. Discussed her condition with oncology on the case. We'll continue to follow Time with Patient: Less than 30
[2019-12-23] MEDS: DILTIAZEM 125 MG in SODIUM CHLORIDE 0.9% 100 ML IV SCH (14:29)
--- NOTE | 2019-12-23 15:33 | PN ---
PROGRESS NOTE DATE OF SERVICE: 12/23/2019 REASON FOR FOLLOWUP: E coli bacteremia, possible abdominal source. INTERVAL HISTORY: The patient is currently afebrile. The patient has been breathing comfortably. Did have a fever of 100.9 this morning, though. Denies having any chest pain, shortness of breath. Minimal cough. No nausea, no vomiting. Some right upper abdominal discomfort. No diarrhea. PHYSICAL EXAMINATION: Blood pressure 112/50 with a pulse of 151, temperature 98.8. She is 96% on 35% FiO2. General description is an elderly female up in the bed in no distress. RESPIRATORY SYSTEM: Unlabored breathing. Clear to auscultation anteriorly. HEART: S1, S2. Regular rate and rhythm. ABDOMEN: Soft. Mild tenderness in the right upper quadrant area. LABS: Hemoglobin 8.9, white count 0.1. BUN of 26, creatinine 1.12. Blood culture with E coli. DIAGNOSTIC IMPRESSION AND PLAN: Patient with Escherichia coli sepsis. Source is likely abdominal, with concern for possible cholecystitis. HIDA scan has been ordered. That will be followed. With no Gram- positive, we will discontinue the vancomycin to decrease risk of nephrotoxicity. Continue with supportive care. MMODL / IJN: [id number] /
--- NOTE | 2019-12-23 16:42 | P.PN ---
Subjective Progress Note Date: 12/23/19 Principal diagnosis: febrile neutropenia In follow-up today patient is in high Badillo's position, drinking contrast, she has been vomiting some of it up, her abdomen feels distended, she denies any fevers, she does not feel her heart racing, no chest pain,she is having diarrhea. In general, she doesn't feel well. Objective - Vital Signs Vital signs: Vital Signs Temp 98.8 F 12/23/19 13:00 Pulse 137 H 12/23/19 16:00 Resp 18 12/23/19 16:00 BP 96/58 12/23/19 14:00 Pulse Ox 97 12/23/19 14:00 Intake & Output 12/22/19 12/23/19 12/23/19 18:59 06:59 18:59 Intake Total 1450 1300 Output Total 1600 1155 475 Balance -1600 295 825 Weight 90.718 kg 98.2 kg 98.2 kg Intake: IV 1450 1300 Cefepime 2 gm In Sodium 100 100 Chloride 0.9% 100 ml @ 200 mls/hr IVPB Q8HR HAKAN Rx#:[id number] Dextrose 5%-0.9% NaCl 1, 900 1000 000 ml @ 100 mls/hr IV . Q10H HAKAN Rx#:[id number] Magnesium Sulfate-D5w Pmx 100 100 1 gm In Dextrose/Water 1 100ml.bag @ 100 mls/hr IVPB Q1H HAKAN Rx#: [id number] Potassium Chloride 10 meq 100 100 In Water For Injection 1 100ml.bag @ 100 mls/hr IVPB Q1H HAKAN Rx#: [id number] Vancomycin 1,500 mg In 250 Sodium Chloride 0.9% 250 ml @ 125 mls/hr IVPB Q24H HAKAN Rx#:[id number] Output: Urine 1600 1155 475 Uretheral (Solares) 1600 Other: Voiding Method Indwelling Catheter Indwelling Catheter - Constitutional General appearance: Present: cooperative, mild distress, obese - EENT Eyes: Present: anicteric sclerae, EOMI ENT: Present: hearing grossly normal, normal oropharynx - Respiratory Respiratory: bilateral: CTA - Cardiovascular Details: tachycardia Heart sounds: normal: S1, S2 Abnormal Heart Sounds: Absent: systolic murmur, diastolic murmur, rub, S3 Gallop, S4 Gallop, click, other - Peripheral edema leg Peripheral Edema: bilateral: None - Gastrointestinal General gastrointestinal: Present: distended, soft, tenderness - Neurologic Neurologic: Present: CNII-XII intact - Musculoskeletal Musculoskeletal: Present: generalized weakness, strength equal bilaterally - Psychiatric Psychiatric: Present: A&O x's 3, appropriate affect, intact judgment & insight - Labs CBC & Chem 7: 12/23/19 04:15 12/23/19 04:15 Labs: Abnormal Lab Results - Last 24 Hours (Table) 12/22/19 12/22/19 12/22/19 Range/Units 18:52 20:00 21:35 WBC (3.8-10.6) k/uL RBC (3.80-5.40) m/uL Hgb (11.4-16.0) gm/dL Hct (34.0-46.0) % Plt Count (150-450) k/uL ABG O2 Saturation 98.6 H (94-97) % Sodium (137-145) mmol/L BUN (7-17) mg/dL Creatinine (0.52-1.04) mg/dL Glucose (74-99) mg/dL POC Glucose (mg/dL) 190 H (75-99) mg/dL Calcium (8.4-10.2) mg/dL Stool Lactoferrin POSITIVE H (NEGATIVE) 12/23/19 12/23/19 Range/Units 04:15 04:15 WBC 0.1 L* (3.8-10.6) k/uL RBC 2.78 L (3.80-5.40) m/uL Hgb 8.9 L D (11.4-16.0) gm/dL Hct 26.9 L (34.0-46.0) % Plt Count 40 L D (150-450) k/uL ABG O2 Saturation (94-97) % Sodium 132 L (137-145) mmol/L BUN 26 H (7-17) mg/dL Creatinine 1.12 H (0.52-1.04) mg/dL Glucose 206 H (74-99) mg/dL POC Glucose (mg/dL) (75-99) mg/dL Calcium 6.8 L (8.4-10.2) mg/dL Stool Lactoferrin (NEGATIVE) Microbiology - Last 24 Hours (Table) 12/22/19 20:00 Stool Culture - Preliminary Stool 12/22/19 00:02 Blood Culture Gram Stain - Preliminary Blood Blood Culture - Preliminary Escherichia coli Assessment and Plan (1) Neutropenic typhlitis Narrative/Plan: NPO except Ice chips and meds, close monitoring for any increased pain CT AP, drinking contrast when seen IVF D5.9 ID consulted and has seen patient Current Visit: Yes Status: Acute Priority: High Code(s): K36 - OTHER BOB ENDICITIS SNOMED Code(s): 4097578 (2) Neutropenic fever Narrative/Plan: GCSF given 12/19, no additional GCSF at this time Pancultures positive for Escherichia coli bacteremia. ID has seen patient Current Visit: Yes Status: Acute Priority: High Code(s): D70.9 - NEUTROPENIA, UNSPECIFIED; R50.81 - FEVER PRESENTING WITH CONDITIONS CLASSIFIED ELSEWHERE SNOMED Code(s): 975884024 (3) Pancytopenia due to antineoplastic chemotherapy Narrative/Plan: exacerbated by acute infection. Long acting G-CSF administered 12/19, no short acting to be administered at this time Hemoglobin 8.9, no need for transfusion. Transfuse for hemoglobin less than 7 or if patient is severely symptomatic. Platelets 40,000, no need for transfusion at this time. Close monitoring for bleeding. No aspirin, anticoagulation or NSAID's. SCDs for DVT prophylaxis Consider diuretic if given transfusion to reduce risk fluid overload Current Visit: Yes Status: Acute Priority: High Code(s): D61.810 - ANTINEOPLASTIC CHEMOTHERAPY INDUCED PANCYTOPENIA; T45.1X5A - ADVERSE EFFECT OF ANTINEOPLASTIC AND IMMUNOSUP DRUGS, INIT SNOMED Code(s): 571207713464737
[2019-12-24] MEDS: DILTIAZEM 125 MG in SODIUM CHLORIDE 0.9% 100 ML IV SCH ×2
[2019-12-24] MEDS: ALBUTEROL NEBULIZED 2.5 MG/3 ML INHALATION SCH ×7 (00:09→23:54)
[2019-12-24] MEDS ORDERED: LORazepam 2 MG/ML INJ IV PRN (01:16)
[2019-12-24] MEDS: DEXTROSE 5%-0.9% NACL 1,000 ML IV SCH ×2 (01:24→18:11)
[2019-12-24 04:42] LABS: HCT 26.6 % (34.0-46.0); HGB 8.5 gm/dL (11.4-16.0); Hypochromasia Slight; MCH 31.2 pg (25.0-35.0); MCV 97.5 fL (80.0-100.0); Mean Platelet Volume 10.9; RBC 2.73 m/uL (3.80-5.40); RDW 13.7 % (11.5-15.5)
[2019-12-24 04:47] LABS: WBC 0.1 k/uL (3.8-10.6)
[2019-12-24 04:48] LABS: Platelet Count 53 k/uL (150-450)
[2019-12-24 04:53] LABS: Calcium 6.8 mg/dL (8.4-10.2); Magnesium 2.3 mg/dL (1.6-2.3)
[2019-12-24 06:13] LABS: Glucose,Whole Blood 255 mg/dL (75-99)
[2019-12-24] MEDS: INSULIN ASPART (NovoLOG) 100 UNIT/ML VIAL SQ SCH ×3 (06:15→18:10)
--- NOTE | 2019-12-24 07:04 | XR ---
EXAMINATION TYPE: XR chest 1V DATE OF EXAM: 12/24/2019 HISTORY: Shortness of breath. COMPARISON: 12/23/2019 TECHNIQUE: Single view of the chest is submitted. FINDINGS: Demonstrated are scattered senescent parenchymal change. Right lower lobe infiltrate, atelectasis and/or effusion is unchanged. The heart is stable. Hilar and mediastinal structures are within normal limits. Degenerative changes are seen of the dorsal spine. IMPRESSION: 1. Right lower lobe infiltrate, atelectasis and/or effusion is unchanged.
[2019-12-24] MEDS ORDERED: FUROSEMIDE 10 MG/ML 2 ML VIAL IV ONE (08:27)
[2019-12-24] MEDS: CEFEPIME 2 GM in SODIUM CHLORIDE 0.9% 100 ML IVPB SCH ×2 (08:41→20:13)
[2019-12-24] MEDS: FAMOTIDINE 20 MG/2 ML VIAL IV SCH (08:53)
[2019-12-24] MEDS: ATENOLOL 25 MG TAB PO SCH (08:54)
[2019-12-24] MEDS: DIGOXIN 250 MCG TAB PO SCH (08:54)
--- NOTE | 2019-12-24 11:56 | P.PN ---
Subjective This is a pleasant 69 years old female with past medical history of COPD, diabetes mellitus, lung cancer status post chemoradiotherapy. Patient presents with dyspnea and chest pain with fever, malaise of 1-2 days duration. Also patient complaining of from diarrhea abdominal pain, nausea vomiting. Patient states although she is dyspneic but thus close to her baseline as per patient states, she uses oxygen 2-3 L at home but no steroid dependent and she sees Dr. Urrutia in the outpatient setting. However over the last 2-3 days patient was not eating well with decreased appetite she didn't vomit Seferino she came to the hospital but she has significant diarrhea about 5-6 times per day which is watery no blood noted. She checked her temperature at home was 100.5 so her daughter make her call the office of Dr. garber who instructed her to come to emergency room. She has some coughing. Also shows some abdominal distention. Patient has not voided says yesterday had Solares catheter was inserted in the emergency room. she follow up with Dr. Valladares for her chemotherapy and last dose of the chemotherapy was last Sunday on 12/18 She is tachycardic with heart rate 108/112, blood pressure 102/41, she had a fever of 101.9. Left Angelica Mikki 0.1K, [facility] 0.5 and platelets 90 2K. INR is 1.3, d-dimer is 2.3 elevated lactic acid 3.7, 4.1 and 5.8, sodium is low as 129, potassium n chest x-ray: ormal 4.8, magnesium of 1.1, creatinine 1.06 which is mildly elevated. Tenderness is high at 576, AST 38, LDH is 785, troponin 0.013, serum protein is 176 which is high blood culture has been sent Chest x-ray showing right pleural effusion and right lower lobe infiltrate slightly increased, possible mass at the left pulmonary hilum. Chest CTA is negative for PE and there is masslike adenopathy of the left pulmonary hilum with lymph nodes that measure up to 3 cm, there isn't currently taking infiltrate in the left lower lobe Gallbladder ultrasound: Numerous gallstones, no significant gallbladder wall thickening EKG showing sinus tachycardia at 1:30, no significant ST-T changes, QTC is 470 In the emergency room patient received IV fluids, started on Zithromax, vancomycin, cefepime. Patient also on D5 normal saline at 100 mL per hour Infectious place was well for oncologist and infectious disease specialist 12/23/2019 Patient remains in the ICU, she still dyspneic have difficulty talking, she has a difficult for the phlegm but no chest pain. She vomited all her medicines and foods she took. She still complaining of from abdominal pain and tenderness all over especially in the left lower quadrant and also on the right side. She still have diarrhea. She has low-grade temperature today of 100.9. She is saturating 97% on 4 L oxygen nasal cannula, blood pressure 112/50 and she is tachypneic. CBC is still showing pancytopenia of WBCs 0.1K, hemoglobin 8.9 and platelets 40 K, subcu heparin was held. Sodium 132, creatinine 1.1, sugar is controlled, magnesium 1.7, proBNP is 1660, Echocardiogram: Ejection fraction 6065% with LVH, patient went into A. 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 Rangel as an outpatient for abnormal heartbeat. C. diff test is negative. Cholesterol studies are pending. She has CT of the abdomen and pelvis showing right pneumonia and pleural effusion, colitis in the ascending colon and cecum and hydrops gallbladder with cirrhosis, HIDA scan is ordered Blood cultures positive for E. coli and patient is already on cefepime and vancomycin. 12/24/2019 Patient ICU, awake but looks tired, she still somewhat dyspneic, she had use by BiPAP but last night, she saturating 94 L oxygen via nasal cannula. No chest pain Patient had the tibial vomiting last night, however her diarrhea was stopped. She still complaining of from RUQ pain and tenderness. HIDA scan for gallbladder functionality is pending. Still Solares catheter in place. Blood pressure is 99/66, heart rate 89. That's still showing pancytopenia which looks similar to yesterday. Creatinine 1.0, sodium 133, sugar 255. She is on D5 normal saline at 100 mL per hour, we'll order that this referral millimeter per hour. Cardizem drip was stopped this morning. And she was started on atenolol 25 mg daily and digoxin to 50 g daily. She is on cefepime for E. coli septicemia. Review of Systems CONSTITUTIONAL: + fever HEENT: No recent visual problems or hearing problems. Denied any sore throat. CARDIOVASCULAR: No orthopnea, PND, no palpitations, no syncope. PULMONARY: no hemoptysis. GASTROINTESTINAL: No diarrhea, no nausea, no vomiting, no abdominal pain. Normoactive bowel sounds. NEUROLOGICAL: No headaches, no weakness, no numbness. HEMATOLOGICAL: Denies any bleeding or petechiae. GENITOURINARY: Denies any burning micturition, frequency, or urgency. MUSCULOSKELETAL/RHEUMATOLOGICAL: Denies any joint pain, swelling, or any muscle pain. ENDOCRINE: Denies any polyuria or polydipsia. Active Medications Generic Name Dose Route Start Last Admin Trade Name Freq PRN Reason Stop Dose Admin Acetaminophen 1,000 mg 12/23/19 08:23 12/23/19 08:50 Tylenol Tab PO 1,000 mg Q6HR PRN Administration Fever and/ or Pain Albuterol Sulfate 2.5 mg 12/22/19 08:00 12/24/19 11:41 Ventolin Nebulized INHALATION 2.5 mg RT-Q4H [facility] Administration Albuterol/Ipratropium 3 ml 12/22/19 05:37 12/22/19 11:26 Duoneb 0.5 Mg-3 Mg/3 Ml Soln INHALATION 3 ml RT-QID PRN Administration Shortness Of Breath Or Wheezing Atenolol 25 mg 12/24/19 09:00 12/24/19 08:54 Tenormin PO 25 mg DAILY [facility]AN Administration Digoxin 250 mcg 12/24/19 09:00 12/24/19 08:54 Lanoxin PO 250 mcg DAILY [facility] Administration Famotidine 20 mg 12/25/19 09:00 Pepcid IV DAILY [facility] Dextrose/Sodium Chloride 1,000 mls @ 100 mls/hr 12/22/19 10:15 12/24/19 01:24 Dextrose 5%-Ns Iv Soln IV 100 mls/hr .Q10H [facility] Administration Diltiazem HCl 125 mg/ Sodium 125 mls @ 5 mls/hr 12/23/19 13:00 12/24/19 11:23 Chloride IV 0 mg/hr .Q24H [facility] 0 mls/hr Infusion 5 MG/HR Cefepime HCl 2 gm/ Sodium 100 mls @ 200 mls/hr 12/24/19 21:00 Chloride IVPB Q12HR [facility] Insulin Aspart 0 unit 12/24/19 06:00 12/24/19 06:15 Novolog SQ 4 unit Q6H [facility] Administration Protocol Lorazepam 0.5 mg 12/24/19 01:16 12/24/19 01:23 Ativan IV 0.5 mg Q4HR PRN Administration Anxiety Miscellaneous Information 1 each 12/23/19 05:46 Potassium Per Protocol MISCELLANE DAILY PRN Per Protocol Protocol Miscellaneous Information 1 each 12/23/19 05:47 Magnesium Per Protocol MISCELLANE DAILY PRN Per Protocol Protocol Ondansetron HCl 4 mg 12/22/19 12:11 12/23/19 09:43 Zofran IVP 4 mg Q6HR PRN Administration Nausea And Vomiting Prochlorperazine Maleate 10 mg 12/22/19 19:36 12/22/19 20:30 Compazine PO 10 mg Q8HR PRN Administration Nausea And Vomiting Objective - Vital Signs Vital signs: Vital Signs Temp 98.3 F 12/24/19 08:00 Pulse 89 12/24/19 11:00 Resp 18 12/24/19 11:00 BP 102/50 12/24/19 11:00 Pulse Ox 98 12/24/19 11:00 Intake & Output 12/23/19 12/24/19 12/24/19 18:59 06:59 18:59 Intake Total 1500 1247.583 500.708 Output Total 585 565 140 Balance 915 682.583 360.708 Weight 98.2 kg 99.5 kg Intake: IV 1500 1200 450 Cefepime 2 gm In Sodium 100 100 100 Chloride 0.9% 100 ml @ 200 mls/hr IVPB Q8HR [facility] Rx#:[id number] Dextrose 5%-0.9% NaCl 1, 1200 1100 350 000 ml @ 100 mls/hr IV . Q10H [facility] Rx#:[id number] Magnesium Sulfate-D5w Pmx 100 1 gm In Dextrose/Water 1 100ml.bag @ 100 mls/hr IVPB Q1H [facility] Rx#: [id number] Potassium Chloride 10 meq 100 In Water For Injection 1 100ml.bag @ 100 mls/hr IVPB Q1H [facility] Rx#: [id number] Intake, IV Titration 47.583 50.708 Amount Diltiazem 125 mg In 47.583 50.708 Sodium Chloride 0.9% 100 ml @ 5 MG/HR 5 mls/hr IV .Q24H [facility] Rx#:[id number] Output: Urine 585 565 140 Other: Voiding Method Indwelling Catheter Indwelling Catheter Indwelling Catheter - Exam -GENERAL: The patient is alert and oriented x3, in mild respiratory acute distress. Well developed, well nourished. HEENT: Pupils are round and equally reacting to light. EOMI. No scleral icterus. No conjunctival pallor. Normocephalic, atraumatic. No pharyngeal erythema. No thyromegaly. CARDIOVASCULAR: S1 and S2 present. No murmurs, rubs, or gallops. -PULMONARY: Chest is clear to auscultation,. Decreased breath sounds in the lung bases with some crackers -ABDOMEN: Soft, generalized abdominal pain, more on the left lower side, no rebound tenderness, no guarding, distended, normoactive bowel sounds. No palpabl e organomegaly. Solares catheter is in place MUSCULOSKELETAL: No joint swelling or deformity. EXTREMITIES: No cyanosis, clubbing, or pedal edema. NEUROLOGICAL: Gross neurological examination did not reveal any focal deficits. SKIN: No rashes. No petechiae - Labs CBC & Chem 7: 12/24/19 03:42 12/24/19 03:42 Labs: Abnormal Lab Results - Last 24 Hours (Table) 12/22/19 12/24/19 12/24/19 Range/Units 20:00 03:42 03:42 WBC 0.1 L* (3.8-10.6) k/uL RBC 2.73 L (3.80-5.40) m/uL Hgb 8.5 L (11.4-16.0) gm/dL Hct 26.6 L (34.0-46.0) % Plt Count 53 L (150-450) k/uL Sodium 133 L (137-145) mmol/L BUN 28 H (7-17) mg/dL Creatinine 1.07 H (0.52-1.04) mg/dL Glucose 208 H (74-99) mg/dL POC Glucose (mg/dL) (75-99) mg/dL Calcium 6.8 L (8.4-10.2) mg/dL Stool Lactoferrin POSITIVE H (NEGATIVE) 12/24/19 Range/Units 06:11 WBC (3.8-10.6) k/uL RBC (3.80-5.40) m/uL Hgb (11.4-16.0) gm/dL Hct (34.0-46.0) % Plt Count (150-450) k/uL Sodium (137-145) mmol/L BUN (7-17) mg/dL Creatinine (0.52-1.04) mg/dL Glucose (74-99) mg/dL POC Glucose (mg/dL) 255 H (75-99) mg/dL Calcium (8.4-10.2) mg/dL Stool Lactoferrin (NEGATIVE) Microbiology - Last 24 Hours (Table) 12/23/19 04:25 Blood Culture - Preliminary Blood No Growth after 24 hours 12/22/19 00:02 Blood Culture Gram Stain - Preliminary Blood Blood Culture - Preliminary Escherichia coli Gram Neg Bacilli Assessment and Plan Assessment: Febrile neutropenia Sepsis Secondary to pneumonia, bilateral left and right lower lobe pneumonia with pleural effusion Nonspecific colitis A. fib with RVR Dilated and hydrops gallbladder, rule out cholecystitis, which could be the source of E. coli septicemia elevated lactic acid Hyponatremia, hypovolemic Electrolyte abnormality with hypomagnesemia Dilated gallbladder, suspicious for gallbladder dysfunction or cholecystitis, however ultrasound showing no gallbladder thickening Lung cancer status post chemoradiotherapy Diabetes mellitus COPD Plan: this is a pleasant 69 years old female who presents with pneumonia and febrile neutropenia. Continue with antibiotic vancomycin and cefepime, follow-up culture results. Continue with IV fluids. Follow-up pulmonary service consult. Follow-up by infectious disease and oncologist. Check urinalysis and urine culture, check sputum culture. Follow-up pro-calcitonin . Check HIDA scan. Cardiology consult and Cardizem drip was held per cardiology Labs and medication were reviewed.. Continue same treatment. Continue with symptomatic treatment. Resume home medication. Monitor lytes and vitals. DVT and GI prophylaxis. Further recommendations of the clinical course of the patient DVT prophylaxis: Stop heparin for thrombocytopenia GI Prophylaxis: Pepcid Prognosis is guarded
--- NOTE | 2019-12-24 12:07 | P.PN ---
Subjective Progress Note Date: 12/24/19 Principal diagnosis: Gram-negative bacteremia and sepsis with neutropenia. 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 Her diagnosis was initially established in 2006, and she has been in remission on 10 recently when she was noted to have recurrence of her malignancy. Started back on chemotherapy, Her last chemotherapy was on Sunday given to her and Dr. Valladares's office. Patient presented to the ER with multiple complaints including fever with temp of 101.3, weakness, malaise, diarrhea, abdominal pain, nausea and vomiting. Patient is normally on oxygen at 2-3 L/m, patient is not steroids dependent for her underlying COPD. She sees Dr. Urrutia on outpatient basis for her underlying COPD and known history underlying lung answer. Patient called her oncologist yesterday complaining of fever and multiple constitutional symptoms, and she was advised to come to the ER. While in the ER, the patient was noted to be tachy cardic, marginal blood pressure, neutropenic, elevated lactic acid, and her CT of the chest showed no evidence of pulmonary embolism, but there is masslike adenopathy in the left hilum and cavitary lesion , noted in the left lower lobe suspicious for tumor. I evaluated the patient in the ER, reviewed her chest x- ray, CT of the chest, and I strongly felt that the patient is septic. Blood culture is showing gram-negative rods. Hence the patient was started empirically on cefepime and on vancomycin until the final cultures become available. In the meantime I recommended transfer the patient to ICU is set of the regular medical floor/oncology. Patient was reevaluated today on 12/23/19, patient remains in the ICU, I saw yesterday in the emergency room, and the changes that admission from medical floor to the ICU. Overnight, the patient had to be placed on BiPAP. Presently on 2 L nasal cannula, O2 saturation is 97%. She was on BiPAP at 12/4 and 35%, however she had difficulty tolerating the BiPAP. Blood cultures came back positive for E. coli. At her chest x-ray is suspicious for a right lower lobe pneumonia/infiltrate. CT of the abdomen and pelvis, showed moderate colitis, cirrhosis, portal vein venous hypertension, generalized anasarca, and showed changes in the right base as noted previously on CT of the chest. New left small pleural effusion noted and there was evidence of hydropic gallbladder with cholelithiasis. Patient remains empirically on antibiotics in the form of cefepime and vancomycin. Still having intermittent episodes of fever. Continues to have pancytopenia with WBC count of 0.1 hemoglobin 8.9 and platelets are down to 40,000. Electrolytes and renal profile are relatively normal. Urinalysis seems to be relatively unremarkable except for pyuria and bacteriuria. Patient was reevaluated today on 12/24/19, remains in the ICU, hemodynamically stable, not requiring any pressors, IV fluid is down to 70 mL per hour. Patient has some shortness of breath, diarrhea has resolved. Remains in A. fib with a relatively controlled rate. She is on Cardizem at 5 mg per hour. And today she was given a dose of Lasix 20 mg IV push. Patient improved but not back to baseline. Chest x-ray continues to show right lower lobe atelectasis, possible pneumonia and effusion. Echocardiogram showed good LV function. And it showed mild pulmonary hypertension. Continues to have pancytopenia with WBC count of 0.1 hemoglobin 8.5 and platelets 53,000. Electrolyte are normal renal profile is normal. Blood sugar is 208. BNP level is elevated at 3980, hence one dose of Lasix was given today. Objective - Vital Signs Vital signs: Vital Signs Temp 98.3 F 12/24/19 08:00 Pulse 96 12/24/19 11:48 Resp 18 12/24/19 11:00 BP 102/50 12/24/19 11:00 Pulse Ox 98 12/24/19 11:00 Intake & Output 12/23/19 12/24/19 12/24/19 18:59 06:59 18:59 Intake Total 1500 1247.583 500.708 Output Total 585 565 140 Balance 915 682.583 360.708 Weight 98.2 kg 99.5 kg Intake: IV 1500 1200 450 Cefepime 2 gm In Sodium 100 100 100 Chloride 0.9% 100 ml @ 200 mls/hr IVPB Q8HR [facility] Rx#:[id number] Dextrose 5%-0.9% NaCl 1, 1200 1100 350 000 ml @ 100 mls/hr IV . Q10H [facility] Rx#:[id number] Magnesium Sulfate-D5w Pmx 100 1 gm In Dextrose/Water 1 100ml.bag @ 100 mls/hr IVPB Q1H [facility] Rx#: [id number] Potassium Chloride 10 meq 100 In Water For Injection 1 100ml.bag @ 100 mls/hr IVPB Q1H [facility] Rx#: [id number] Intake, IV Titration 47.583 50.708 Amount Diltiazem 125 mg In 47.583 50.708 Sodium Chloride 0.9% 100 ml @ 5 MG/HR 5 mls/hr IV .Q24H [facility] Rx#:[id number] Output: Urine 585 565 140 Other: Voiding Method Indwelling Catheter Indwelling Catheter Indwelling Catheter - Exam -GENERAL: Reveals 69-year-old female in no distress. On 3 liters nasal cannula. HEENT: PERRLA, EOMI, no icterus. CARDIOVASCULAR: Normal S1 and S2, no gallops. -PULMONARY: Chest is clear to auscultation,. Minimal crackles at the bases, slightly diminished at the left base. -ABDOMEN: Soft, nontender, no megaly, no rebound, no guarding, positive bowel sounds MUSCULOSKELETAL: No joint swelling or deformity. EXTREMITIES: No cyanosis, clubbing, trace of bipedal edema. NEUROLOGICAL: Alert and oriented 3, no gross focal neurologic deficits. Psychiatric: Normal mood affect and normal mental status examination. SKIN: No rashes. No petechiae - Labs CBC & Chem 7: 12/24/19 03:42 12/24/19 03:42 Labs: Abnormal Lab Results - Last 24 Hours (Table) 12/22/19 12/24/19 12/24/19 Range/Units 20:00 03:42 03:42 WBC 0.1 L* (3.8-10.6) k/uL RBC 2.73 L (3.80-5.40) m/uL Hgb 8.5 L (11.4-16.0) gm/dL Hct 26.6 L (34.0-46.0) % Plt Count 53 L (150-450) k/uL Sodium 133 L (137-145) mmol/L BUN 28 H (7-17) mg/dL Creatinine 1.07 H (0.52-1.04) mg/dL Glucose 208 H (74-99) mg/dL POC Glucose (mg/dL) (75-99) mg/dL Calcium 6.8 L (8.4-10.2) mg/dL Stool Lactoferrin POSITIVE H (NEGATIVE) 12/24/19 Range/Units 06:11 WBC (3.8-10.6) k/uL RBC (3.80-5.40) m/uL Hgb (11.4-16.0) gm/dL Hct (34.0-46.0) % Plt Count (150-450) k/uL Sodium (137-145) mmol/L BUN (7-17) mg/dL Creatinine (0.52-1.04) mg/dL Glucose (74-99) mg/dL POC Glucose (mg/dL) 255 H (75-99) mg/dL Calcium (8.4-10.2) mg/dL Stool Lactoferrin (NEGATIVE) Microbiology - Last 24 Hours (Table) 12/23/19 04:25 Blood Culture - Preliminary Blood No Growth after 24 hours 12/22/19 00:02 Blood Culture Gram Stain - Preliminary Blood Blood Culture - Preliminary Escherichia coli Gram Neg Bacilli Assessment and Plan Assessment: Impression: Gram-negative sepsis and bacteremia, final identification is pending. Pancytopenia, secondary to recent chemotherapy. Possible right lower lobe pneumonia, gram-negative unless proven otherwise c onsidering the patient is immunocompromised. 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 Initially diagnosed in 2006, Chronic obstructive pulmonary disease, presently inactive. Acute on chronic hypoxic respiratory failure, secondary to COPD, pneumonia, and sepsis History of malignant melanoma left cheek. Onset 01/27/2019. GERD without esophagitis. Type 2 diabetes. Benign essential hypertension. Acute colitis, could also be the primary source of her bacteremia. Her diarrhea has resolved. Recommendation: Continue IV fluids. However will cut down to 75 ML per hour, and the patient was given a gentle diuresis. Continue cefepime and vancomycin. Antibiotics to be changed according to the final culture. Cefepime seems to be appropriate for now, may discontinue vancomycin Follow up on all cultures GI and DVT prophylaxis. Hemodynamic support using pressors if necessary. Continue to keep the patient nothing by mouth for now. We'll continue to follow Time with Patient: Less than 30
--- NOTE | 2019-12-24 12:57 | P.PN ---
Subjective Progress Note Date: 12/24/19 Principal diagnosis: febrile neutropenia In follow-up today patient is more alert, is at bedside, she states she feels better then yesterday. Objective - Vital Signs Vital signs: Vital Signs Temp 98.3 F 12/24/19 08:00 Pulse 92 12/24/19 12:00 Resp 18 12/24/19 11:00 BP 102/50 12/24/19 11:00 Pulse Ox 98 12/24/19 11:00 Intake & Output 12/23/19 12/24/19 12/24/19 18:59 06:59 18:59 Intake Total 1500 1247.583 650.708 Output Total 585 565 200 Balance 915 682.583 450.708 Weight 98.2 kg 99.5 kg Intake: IV 1500 1200 600 Cefepime 2 gm In Sodium 100 100 100 Chloride 0.9% 100 ml @ 200 mls/hr IVPB Q8HR [facility] Rx#:[id number] Dextrose 5%-0.9% NaCl 1, 1200 1100 500 000 ml @ 75 mls/hr IV . [id number] [facility] Rx#:[id number] Magnesium Sulfate-D5w Pmx 100 1 gm In Dextrose/Water 1 100ml.bag @ 100 mls/hr IVPB Q1H [facility] Rx#: [id number] Potassium Chloride 10 meq 100 In Water For Injection 1 100ml.bag @ 100 mls/hr IVPB Q1H [facility] Rx#: [id number] Intake, IV Titration 47.583 50.708 Amount Diltiazem 125 mg In 47.583 50.708 Sodium Chloride 0.9% 100 ml @ 5 MG/HR 5 mls/hr IV .Q24H [facility] Rx#:[id number] Output: Urine 585 565 200 Other: Voiding Method Indwelling Catheter Indwelling Catheter Indwelling Catheter - Constitutional General appearance: Present: average body habitus, cooperative, mild distress - EENT EENT Comment(s): dry mouth Eyes: Present: anicteric sclerae, EOMI ENT: Present: hearing grossly normal - Respiratory Respiratory: bilateral: rhonchi - Cardiovascular Rhythm: regular Heart sounds: normal: S1, S2 Abnormal Heart Sounds: Absent: systolic murmur, diastolic murmur, rub, S3 Gallop, S4 Gallop, click, other - Peripheral edema leg Peripheral Edema: bilateral: Trace - Gastrointestinal General gastrointestinal: Present: absent bowel sounds, distended, tenderness - Neurologic Neurologic: Present: CNII-XII intact - Musculoskeletal Musculoskeletal: Present: generalized weakness, strength equal bilaterally - Psychiatric Psychiatric: Present: A&O x's 3, appropriate affect, intact judgment & insight - Labs CBC & Chem 7: 12/24/19 03:42 12/24/19 03:42 Labs: Abnormal Lab Results - Last 24 Hours (Table) 12/22/19 12/24/19 12/24/19 Range/Units 20:00 03:42 03:42 WBC 0.1 L* (3.8-10.6) k/uL RBC 2.73 L (3.80-5.40) m/uL Hgb 8.5 L (11.4-16.0) gm/dL Hct 26.6 L (34.0-46.0) % Plt Count 53 L (150-450) k/uL Sodium 133 L (137-145) mmol/L BUN 28 H (7-17) mg/dL Creatinine 1.07 H (0.52-1.04) mg/dL Glucose 208 H (74-99) mg/dL POC Glucose (mg/dL) (75-99) mg/dL Calcium 6.8 L (8.4-10.2) mg/dL Stool Lactoferrin POSITIVE H (NEGATIVE) 12/24/19 Range/Units 06:11 WBC (3.8-10.6) k/uL RBC (3.80-5.40) m/uL Hgb (11.4-16.0) gm/dL Hct (34.0-46.0) % Plt Count (150-450) k/uL Sodium (137-145) mmol/L BUN (7-17) mg/dL Creatinine (0.52-1.04) mg/dL Glucose (74-99) mg/dL POC Glucose (mg/dL) 255 H (75-99) mg/dL Calcium (8.4-10.2) mg/dL Stool Lactoferrin (NEGATIVE) Microbiology - Last 24 Hours (Table) 12/23/19 04:25 Blood Culture - Preliminary Blood No Growth after 24 hours 12/22/19 00:02 Blood Culture Gram Stain - Preliminary Blood Blood Culture - Preliminary Escherichia coli Gram Neg Bacilli - Imaging and Cardiology Chest x-ray: report reviewed CT scan - abdomen: report reviewed CT scan - pelvis: report reviewed Assessment and Plan (1) Neutropenic typhlitis Narrative/Plan: NPO except Ice chips and meds, close monitoring for any increased abd pain or distension CT AP gallstomes and colitis IVF D5.9 ID consulted and has seen patient Current Visit: Yes Status: Acute Priority: High Code(s): K36 - OTHER APPENDICITIS SNOMED Code(s): 8687358 (2) Neutropenic fever Narrative/Plan: GCSF given 12/19, no additional GCSF at this time Pancultures positive for Escherichia coli bacteremia. T max 100.9F ID has seen patient Current Visit: Yes Status: Acute Priority: High Code(s): D70.9 - NEUTROPENIA, UNSPECIFIED; R50.81 - FEVER PRESENTING WITH CONDITIONS CLASSIFIED ELSEWHERE SNOMED Code(s): 171643491 (3) Pancytopenia due to antineoplastic chemotherapy Narrative/Plan: Exacerbated by acute infection. Long acting G-CSF administered 12/19, no short acting to be administered at this time Hemoglobin 8.5, no need for transfusion. Transfuse for hemoglobin less than 7 or if patient is severely symptomatic. Platelets 53,000, no need for transfusion at this time. Close monitoring for bleeding. No aspirin, anticoagulation or NSAID's. SCDs for DVT prophylaxis Consider diuretic if given transfusion to reduce risk fluid overload Current Visit: Yes Status: Acute Priority: High Code(s): D61.810 - ANTINEOPLASTIC CHEMOTHERAPY INDUCED PANCYTOPENIA; T45.1X5A - ADVERSE EFFECT OF ANTINEOPLASTIC AND IMMUNOSUP DRUGS, INIT SNOMED Code(s): 980685536765125
--- NOTE | 2019-12-24 14:18 | NM ---
EXAMINATION TYPE: NM hepatobiliary w CCK DATE OF EXAM: 12/24/2019 COMPARISON: NONE HISTORY: Right upper quadrant pain TECHNIQUE: After the intravenous administration of 4.5 mCi Tc 99m Mebrofenin hepatobiliary scintigrap hy is performed. Immediate images post injection. FINDINGS: There is satisfactory initial accumulation of tracer by the liver. The gallbladder is visualized wit hin 5 minutes. The small bowel activity is noted within 10 minutes. At one hour CCK was administere d, patient was injected with 2 mcg of Kinevac, and gallbladder ejection fraction is calculated at -16 %. IMPRESSION: Abnormal gallbladder ejection fraction was may reflect chronic cholecystitis and/or bilia ry dyskinesia.
--- NOTE | 2019-12-24 16:10 | CONS ---
CONSULTATION CHIEF COMPLAINT: Atrial fibrillation. Vaishnavi is a 69-year-old lady with history of COPD, type 2 diabetes, [id number] lung cancer, status post chemo radiation, who had recently been restarted on chemotherapy and came to the emergency room with a fever of 101.3, weakness abdominal pain, nausea, vomiting. On presentation she was found to be tachycardiac, hypotensive, neutropenic. A CT scan of the chest was negative for pulmonary embolism. She came to the ICU, where she had atrial fibrillation with poorly controlled ventricular rate, for which Cardiology has been consulted. At the time of my evaluation this morning, patient's blood pressure is sort of marginal, heart rate is in the 90s per minute, and her labs show that she is severely neutropenic and the platelet count is low at 40. PAST MEDICAL HISTORY: Significant for lung cancer, status post chemotherapy, hypertension. MEDICATIONS: Medications include fluconazole, Tenormin, Ventolin, vitamin, Demadex and Aldactone. ALLERGIES: SULFA, MUCINEX. FAMILY HISTORY: Negative for premature coronary artery disease. SOCIAL HISTORY: Negative for smoking, EtOH abuse or drug abuse. REVIEW OF SYSTEMS: HEENT is unremarkable. CARDIAC: As described above. RESPIRATORY: As described above. GI: Negative. GENITOURINARY: Negative. ALLERGY: Negative. IMMUNOLOGY: Negative. SKIN: Negative. MUSCULOSKELETAL: Significant for arthritis. PSYCHOSOCIAL: Negative. ENDOCRINE: Negative. DERMATOLOGY: Negative. CONSTITUTIONAL: Significant for fever, chills, not feeling well. ONCOLOGICAL: As described above. SOUND EFFECTS PERSON: Negative. PHYSICAL EXAMINATION: Heart rate is 96. Blood pressure is 102/50, respiratory rate 18. Oxygen saturation is 98%. There is no jugular venous distention. There is no carotid bruit. Chest exam reveals good air entry bilaterally. Heart exam reveals first and second heart sounds, irregular rhythm. No murmur. Abdomen is soft. Examination of extremities did not reveal any edema. Peripheral pulses are felt. LABS: Labs show that the potassium is 4, creatinine is 1. BNP is 3980. White cell count is 0.1, hemoglobin is 8.5, platelet count is 53. I do not have any EKG from today. An EKG on initial presentation showed sinus tachycardia. Rhythm strips show that she is in atrial fibrillation with poorly controlled ventricular rate. Echocardiogram shows normal LV systolic function without any pericardial effusion. ASSESSMENT: 1. Persistent atrial fibrillation with poorly controlled ventricular rate. 2. Pancytopenia. PLAN: I will start the patient on digoxin, resume the beta rossy that the patient was on, taper and stop the Cardizem if we can. She is not a candidate for anticoagulation at this time because of thrombocytopenia. MMSARIAH / DORIS: [id number] /
[2019-12-24 18:07] LABS: Glucose,Whole Blood 205 mg/dL (75-99)
[2019-12-24] MEDS ORDERED: LACTATED RINGERS 1,000 ML IV ONE (21:22)
--- NOTE | 2019-12-24 22:40 | PN ---
PROGRESS NOTE DATE OF SERVICE: 12/24/2019 REASON FOR FOLLOWUP: E coli bacteremia, possible source. INTERVAL HISTORY: The patient is currently afebrile. The patient is breathing comfortably. The patient denies having any chest pain or cough. No nausea. No vomiting. No abdominal pain or diarrhea. PHYSICAL EXAMINATION: Blood pressure 87/52 with a pulse of 80, temperature 98.2. She is 96% on 3 L nasal cannula. General description is an elderly female lying in bed in no distress. RESPIRATORY SYSTEM: Unlabored breathing with decreased breath sounds at the base. No wheeze. HEART: S1, S2. Regular rate and rhythm. ABDOMEN: Soft. No tenderness. LABS: Hemoglobin 8.5, white count 0.9, BUN of 28, creatinine 1.07. Blood cultures with E coli and Citrobacter. Both of them seem to be a sensitive pathogen. DIAGNOSTIC IMPRESSION AND PLAN: Patient with Gram-negative sepsis. Possible source is in this patient whose HIDA scan is suspicious for chronic cholecystitis. The patient is currently covered with cefepime with organism being sensitive. We will switch her over to Rocephin at 2 grams daily and monitor clinical course closely. Continue with supportive care. MMODL / IJN: [id number] /
[2019-12-25 00:12] LABS: Glucose,Whole Blood 192 mg/dL (75-99)
[2019-12-25] MEDS: INSULIN ASPART (NovoLOG) 100 UNIT/ML VIAL SQ SCH ×4 (00:16→18:25)
[2019-12-25] MEDS: DEXTROSE 5%-0.9% NACL 1,000 ML IV SCH ×2 (00:39→15:23)
[2019-12-25] MEDS ORDERED: FUROSEMIDE 10 MG/ML 4 ML VIAL IV STA (01:10)
[2019-12-25] MEDS: ALBUTEROL NEBULIZED 2.5 MG/3 ML INHALATION SCH ×6 (03:48→23:16)
[2019-12-25] MEDS: NOREPINEPHRINE 4 MG in SODIUM CHLORIDE 0.9% 250 ML IV SCH ×2 (04:14→08:18)
[2019-12-25 05:37] LABS: HCT 28.3 % (34.0-46.0); HGB 8.9 gm/dL (11.4-16.0); Hypochromasia Marked; MCH 32.1 pg (25.0-35.0); MCHC 31.4 g/dL (31.0-37.0); MCV 102.1 fL (80.0-100.0); Macrocytosis Slight; Mean Platelet Volume 10.9; RBC 2.77 m/uL (3.80-5.40); RDW 13.8 % (11.5-15.5)
[2019-12-25 05:47] LABS: Calcium 7.1 mg/dL (8.4-10.2); Magnesium 2.3 mg/dL (1.6-2.3); Potassium 4.9 mmol/L (3.5-5.1)
[2019-12-25 05:49] LABS: Platelet Count 97 k/uL (150-450); WBC 0.2 k/uL (3.8-10.6)
[2019-12-25 05:58] LABS: ABG Base Excess -7.6 mmol/L; ABG HCO3 21 mmol/L (21-25); ABG Oxygen Saturation 95.1 % (94-97); ABG PCO2 57 mmHg (35-45); ABG PO2 81 mmHg (83-108); ABG TCO2 23 mmol/L (19-24); Allen Test Performed? Yes
[2019-12-25 06:06] LABS: Crenated RBC Present
[2019-12-25] MEDS ORDERED: PROPOFOL 100 ML IV ONE (06:09)
[2019-12-25] MEDS: PROPOFOL 1,000 MG in EMPTY BAG 1 BAG IV SCH ×3 (06:15→22:29)
[2019-12-25 06:36] LABS: Glucose,Whole Blood 197 mg/dL (75-99)
--- NOTE | 2019-12-25 06:43 | XR ---
EXAMINATION TYPE: XR chest 1V portable DATE OF EXAM: 12/25/2019 6:25 AM COMPARISON: Yesterday HISTORY: Short of breath. Respiratory failure. TECHNIQUE: Single view FINDINGS: Endotracheal tube is 2.9 cm from the brenda. There is blunting of the costophrenic angles. There is nasogastric tube in the stomach. There is mild pulmonary congestion. IMPRESSION: There is evidence for congestive heart failure and pleural effusions worse than yesterday . There is increased pleural fluid and infiltrate left lower lobe. No significant change in the right lower lobe.
--- NOTE | 2019-12-25 07:21 | XR ---
EXAMINATION TYPE: XR chest 1V portable DATE OF EXAM: 12/25/2019 Comparison: 12/24/2019 Clinical History: 69-year-old female COPD Findings: Persistent rightward patient rotation. Heart appears borderline enlarged. Increasing interstitial opa cities. Continued small to moderate right effusion. Increasing focal patchy left midlung opacity. Impression: 1. Some interval worsening. Correlate for early developing interstitial pulmonary edema. More patchy edema or developing infiltrate at the left midlung. 2. Continued small to moderate right effusion with adjacent atelectasis and/or consolidation.
[2019-12-25 08:11] LABS: ABG Base Excess -8.2 mmol/L; ABG HCO3 18 mmol/L (21-25); ABG Oxygen Saturation 99.7 % (94-97); ABG PCO2 37 mmHg (35-45); ABG PH 7.31 (7.35-7.45); ABG PO2 >400 mmHg (83-108); ABG TCO2 19 mmol/L (19-24); Allen Test Performed? Yes
[2019-12-25] MEDS: CEFEPIME 2 GM in SODIUM CHLORIDE 0.9% 100 ML IVPB SCH ×2 (08:28→20:24)
[2019-12-25] MEDS: FAMOTIDINE 20 MG/2 ML VIAL IV SCH (08:29)
[2019-12-25] MEDS ORDERED: SODIUM BICARB 8.4% 50 ML SYR (1 MEQ/ML) IV STA (08:56)
[2019-12-25] MEDS ORDERED: FUROSEMIDE 10 MG/ML 10 ML VIAL IV STA (08:59)
[2019-12-25] MEDS: ATENOLOL 25 MG TAB PO SCH (09:06)
[2019-12-25] MEDS ORDERED: CISATRACURIUM 2 MG/ML 5 ML VIAL IV ONE (09:07)
--- NOTE | 2019-12-25 09:52 | XR ---
EXAMINATION TYPE: XR chest 1V portable DATE OF EXAM: 12/25/2019 Comparison: 12/25/2019, earlier today Clinical History: 69-year-old female Central Line placement Findings: ET tube is satisfactory. NG tube courses below the diaphragm. Interval placement of right sided CVC c atheter with subclavian access. Catheter tip is in the right atrium. Heart remains upper limits of no rmal in size. Perihilar opacities and moderate right and small left effusions persist. Impression: 1. Right-sided subclavian CVC tip in the right atrium. 2. Continued CHF with some perihilar edema. 3. Continued moderate right and small left effusions with adjacent atelectasis and/or consolidation.
[2019-12-25] MEDS: CHLORHEXIDINE GLUCONATE 15 ML CUP MUCOUS MEM SCH ×2 (09:58→20:24)
[2019-12-25] MEDS: DIGOXIN 250 MCG TAB PO SCH (12:06)
[2019-12-25 12:17] LABS: Glucose,Whole Blood 191 mg/dL (75-99)
--- NOTE | 2019-12-25 12:20 | P.PN ---
Subjective Progress Note Date: 12/25/19 Principal diagnosis: Gram-negative bacteremia and sepsis with neutropenia. 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 Her diagnosis was initially established in 2006, and she has been in remission on 10 recently when she was noted to have recurrence of her malignancy. Started back on chemotherapy, Her last chemotherapy was on Sunday given to her and Dr. Valladares's office. Patient presented to the ER with multiple complaints including fever with temp of 101.3, weakness, malaise, diarrhea, abdominal pain, nausea and vomiting. Patient is normally on oxygen at 2-3 L/m, patient is not steroids dependent for her underlying COPD. She sees Dr. Urrutia on outpatient basis for her underlying COPD and known history underlying lung answer. Patient called her oncologist yesterday complaining of fever and multiple constitutional symptoms, and she was advised to come to the ER. While in the ER, the patient was noted to be tachy cardic, marginal blood pressure, neutropenic, elevated lactic acid, and her CT of the chest showed no evidence of pulmonary embolism, but there is masslike adenopathy in the left hilum and cavitary lesion , noted in the left lower lobe suspicious for tumor. I evaluated the patient in the ER, reviewed her chest x- ray, CT of the chest, and I strongly felt that the patient is septic. Blood culture is showing gram-negative rods. Hence the patient was started empirically on cefepime and on vancomycin until the final cultures become available. In the meantime I recommended transfer the patient to ICU is set of the regular medical floor/oncology. Patient was reevaluated today on 12/23/19, patient remains in the ICU, I saw yesterday in the emergency room, and the changes that admission from medical floor to the ICU. Overnight, the patient had to be placed on BiPAP. Presently on 2 L nasal cannula, O2 saturation is 97%. She was on BiPAP at 12/4 and 35%, however she had difficulty tolerating the BiPAP. Blood cultures came back positive for E. coli. At her chest x-ray is suspicious for a right lower lobe pneumonia/infiltrate. CT of the abdomen and pelvis, showed moderate colitis, cirrhosis, portal vein venous hypertension, generalized anasarca, and showed changes in the right base as noted previously on CT of the chest. New left small pleural effusion noted and there was evidence of hydropic gallbladder with cholelithiasis. Patient remains empirically on antibiotics in the form of cefepime and vancomycin. Still having intermittent episodes of fever. Continues to have pancytopenia with WBC count of 0.1 hemoglobin 8.9 and platelets are down to 40,000. Electrolytes and renal profile are relatively normal. Urinalysis seems to be relatively unremarkable except for pyuria and bacteriuria. Patient was reevaluated today on 12/24/19, remains in the ICU, hemodynamically stable, not requiring any pressors, IV fluid is down to 70 mL per hour. Patient has some shortness of breath, diarrhea has resolved. Remains in A. fib with a relatively controlled rate. She is on Cardizem at 5 mg per hour. And today she was given a dose of Lasix 20 mg IV push. Patient improved but not back to baseline. Chest x-ray continues to show right lower lobe atelectasis, possible pneumonia and effusion. Echocardiogram showed good LV function. And it showed mild pulmonary hypertension. Continues to have pancytopenia with WBC count of 0.1 hemoglobin 8.5 and platelets 53,000. Electrolyte are normal renal profile is normal. Blood sugar is 208. BNP level is elevated at 3980, hence one dose of Lasix was given today. Reevaluated today on 12/25/19, patient worsened yesterday, patient developed hypotension requiring norepinephrine at 0.35 mcg/kg/m, patient's ABG showed a relative hypoxemia and hypercapnia with respiratory acidosis, and according to the nurse who called earlier today the patient was working hard to breathe. Hence I recommended immediate intubation. ABG prior to intubation showed a pO2 of 81 pCO2 of 57 pH of 7.17 and ABG post intubation showed a pO2 of over 400 pCO2 of 37 pH of 7.31. Patient is now on mechanical ventilation, assist control rate is 20, tidal volume is 450 FiO2 is 50% and PEEP 5. I was able to cut down the FiO2 to 45%. And I gave her Lasix earlier because her chest x-ray showed evidence of bilateral pleural effusions and pulmonary edema. I also wrote for Lasix again 60 mg IV push after an amp of bicarb. And recommended monitoring CV P once central line was placed earlier by me today. Blood cultures came back showing E. coli and Citrobacter koseri. Patient is on cefepime, and both organisms are sensitive to cefepime. Patient is sedated, on propofol, and she is on norepinephrine at 0.35 mcg/kg/m. WBC count today is 0.2 hemoglobin 8.9 platelets of 97,000, electrolytes are normal however her renal functioning is up with BUN of 39 and creatinine of 1.65. Lactic acid is down to 3.6 from 5.8 on admission. Objective - Vital Signs Vital signs: Vital Signs Temp 98.9 F 12/25/19 08:00 Pulse 89 12/25/19 12:00 Resp 20 12/25/19 12:00 BP 114/49 12/25/19 09:30 Pulse Ox 98 12/25/19 12:00 Intake & Output 12/24/19 12/25/19 12/25/19 18:59 06:59 18:59 Intake Total 3073.702 4602.979 561.362 Output Total 365 75 40 Balance 268.429 3078.979 521.362 Weight 102 kg Intake: IV 1050 2000 230 Cefepime 2 gm In Sodium 100 100 Chloride 0.9% 100 ml @ 200 mls/hr IVPB Q8HR [facility] Rx#:[id number] Dextrose 5%-0.9% NaCl 1, 950 900 230 000 ml @ 20 mls/hr IV . Q24H [facility] Rx#:[id number] Lactated Ringers 1,000 ml 1000 @ 999 mls/hr IV .Q1H1M [facility] Rx#:[id number] Intake, IV Titration 50.708 127.979 331.362 Amount Diltiazem 125 mg In 50.708 Sodium Chloride 0.9% 100 ml @ 5 MG/HR 5 mls/hr IV .Q24H [facility] Rx#:[id number] Norepinephrine 4 mg In 124.154 328.302 Sodium Chloride 0.9% 250 ml @ 0.05 MCG/KG/MIN 18. 955 mls/hr IV .[id number] [facility] Rx#:[id number] Propofol 1,000 mg In 3.825 3.06 Empty Bag 1 bag @ Titrate IV .Q0M [facility] Rx#: [id number] Output: Urine 365 75 40 Other: Voiding Method Indwelling Catheter Indwelling Catheter ABP, PAP, CO, CI - Last Documented Arterial Blood Pressure 129/43 - Exam -GENERAL: Reveals 69-year-old female on mechanical ventilation, sedated, in no distress. HEENT: PERRLA, EOMI, no icterus. Endotracheal tube and orogastric tube are intact. CARDIOVASCULAR: Irregular rhythm, patient is in atrial flutter, normal S1 and S2, 2/6 systolic murmur thought the precordium.. -PULMONARY: Diminished breath sounds and crackles at the bases no rhonchi no wheezes. -ABDOMEN: Soft, nontender, no megaly, no rebound, no guarding, positive bowel sounds MUSCULOSKELETAL: 1+ bipedal edema. No limitation in range of motion. No deformities. EXTREMITIES: No cyanosis, clubbing, trace of bipedal edema. NEUROLOGICAL: Sedated, on propofol, could not be assessed. Psychiatric: Sedated, on propofol, could not be assessed SKIN: No rashes. No petechiae - Labs CBC & Chem 7: 12/25/19 05:28 12/25/19 05:28 Labs: Abnormal Lab Results - Last 24 Hours (Table) 12/24/19 12/25/19 12/25/19 Range/Units 18:06 00:10 05:28 WBC (3.8-10.6) k/uL RBC (3.80-5.40) m/uL Hgb (11.4-16.0) gm/dL Hct (34.0-46.0) % MCV (80.0-100.0) fL Plt Count (150-450) k/uL ABG pH (7.35-7.45) ABG pCO2 (35-45) mmHg ABG pO2 (83-108) mmHg ABG HCO3 (21-25) mmol/L ABG O2 Saturation (94-97) % Sodium (137-145) mmol/L Carbon Dioxide (22-30) mmol/L BUN (7-17) mg/dL Creatinine (0.52-1.04) mg/dL Glucose (74-99) mg/dL POC Glucose (mg/dL) 205 H 192 H (75-99) mg/dL Plasma Lactic Acid Tñoo (0.7-2.0) mmol/L Calcium (8.4-10.2) mg/dL Procalcitonin 8.99 H (0.02-0.09) ng/mL 12/25/19 12/25/19 12/25/19 Range/Units 05:28 05:28 05:28 WBC 0.2 L* (3.8-10.6) k/uL RBC 2.77 L (3.80-5.40) m/uL Hgb 8.9 L (11.4-16.0) gm/dL Hct 28.3 L (34.0-46.0) % MCV 102.1 H (80.0-100.0) fL Plt Count 97 L D (150-450) k/uL ABG pH (7.35-7.45) ABG pCO2 (35-45) mmHg ABG pO2 (83-108) mmHg ABG HCO3 (21-25) mmol/L ABG O2 Saturation (94-97) % Sodium 133 L (137-145) mmol/L Carbon Dioxide 21 L (22-30) mmol/L BUN 39 H (7-17) mg/dL Creatinine 1.65 H (0.52-1.04) mg/dL Glucose 181 H (74-99) mg/dL POC Glucose (mg/dL) (75-99) mg/dL Plasma Lactic Acid Toño 2.1 H* (0.7-2.0) mmol/L Calcium 7.1 L (8.4-10.2) mg/dL Procalcitonin (0.02-0.09) ng/mL 12/25/19 12/25/19 12/25/19 Range/Units 05:57 06:35 08:09 WBC (3.8-10.6) k/uL RBC (3.80-5.40) m/uL Hgb (11.4-16.0) gm/dL Hct (34.0-46.0) % MCV (80.0-100.0) fL Plt Count (150-450) k/uL ABG pH 7.17 L* 7.31 L (7.35-7.45) ABG pCO2 57 H (35-45) mmHg ABG pO2 81 L >400 H (83-108) mmHg ABG HCO3 18 L (21-25) mmol/L ABG O2 Saturation 99.7 H (94-97) % Sodium (137-145) mmol/L Carbon Dioxide (22-30) mmol/L BUN (7-17) mg/dL Creatinine (0.52-1.04) mg/dL Glucose (74-99) mg/dL POC Glucose (mg/dL) 197 H (75-99) mg/dL Plasma Lactic Acid Toño (0.7-2.0) mmol/L Calcium (8.4-10.2) mg/dL Procalcitonin (0.02-0.09) ng/mL 12/25/19 Range/Units 08:39 WBC (3.8-10.6) k/uL RBC (3.80-5.40) m/uL Hgb (11.4-16.0) gm/dL Hct (34.0-46.0) % MCV (80.0-100.0) fL Plt Count (150-450) k/uL ABG pH (7.35-7.45) ABG pCO2 (35-45) mmHg ABG pO2 (83-108) mmHg ABG HCO3 (21-25) mmol/L ABG O2 Saturation (94-97) % Sodium (137-145) mmol/L Carbon Dioxide (22-30) mmol/L BUN (7-17) mg/dL Creatinine (0.52-1.04) mg/dL Glucose (74-99) mg/dL POC Glucose (mg/dL) (75-99) mg/dL Plasma Lactic Acid Toño 3.6 H* (0.7-2.0) mmol/L Calcium (8.4-10.2) mg/dL Procalcitonin (0.02-0.09) ng/mL Microbiology - Last 24 Hours (Table) 12/22/19 00:02 Blood Culture Gram Stain - Final Blood Blood Culture - Final Escherichia coli Citrobacter koseri 12/23/19 04:25 Blood Culture - Preliminary Blood No Growth after 48 hours 12/22/19 20:00 Stool Culture - Preliminary Stool Assessment and Plan Assessment: Impression: Acute hypoxic respiratory failure secondary to sepsis, septic shock, and suspect acute diastolic congestive heart failure. With acute kidney injury. Gram-negative sepsis and bacteremia, secondary to E. coli and Citrobacter koseri. Acute kidney injury secondary to sepsis and septic shock. Pancytopenia, secondary to recent chemotherapy. Possible right lower lobe pneumonia, gram-negative unless proven otherwise considering the patient is immunocompromised. 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 Initially diagnosed in 2006, Chronic obstructive pulmonary disease, presently inactive. Acute on chronic hypoxic respiratory failure, secondary to COPD, pneumonia, and sepsis, and acute diastolic congestive heart failure. History of malignant melanoma left cheek. Onset 01/27/2019. GERD without esophagitis. Type 2 diabetes. Benign essential hypertension. Acute colitis, could also be the primary source of her bacteremia. Her diarrhea has resolved. Abnormal hepatobiliary scan, however patient is not a surgical candidate at this point in spite of the abnormality noted on the hepatobiliary scan. But may eventually need to be evaluated by surgery. Recommendation: Continue IV fluids. However at a lower rate. Trial of diuretics. Lasix was ordered this morning. Continue cefepime and discontinue vancomycin. Enteral feeding/interstitial support once her white count is improved. GI and DVT prophylaxis. Hemodynamic support using pressors , already on norepinephrine at 0.35 mcg/kg/m. Continue to keep the patient nothing by mouth for now. Established a right subclavian lumen catheter and a right radial arterial line were placed today. Prognosis is definitely guarded. And the patient is obviously critically ill. Critical care time is 40 minutes not including the time spent on procedures. We'll continue to follow Time with Patient: Greater than 30
[2019-12-25] MEDS: NOREPINEPHRINE 8 MG in SODIUM CHLORIDE 0.9% 250 ML IV SCH ×4 (12:21→21:41)
--- NOTE | 2019-12-25 12:59 | P.PN ---
Subjective This is a pleasant 69 years old female with past medical history of COPD, diabetes mellitus, lung cancer status post chemoradiotherapy. Patient presents with dyspnea and chest pain with fever, malaise of 1-2 days duration. Also patient complaining of from diarrhea abdominal pain, nausea vomiting. Patient states although she is dyspneic but thus close to her baseline as per patient states, she uses oxygen 2-3 L at home but no steroid dependent and she sees Dr. Urrutia in the outpatient setting. However over the last 2-3 days patient was not eating well with decreased appetite she didn't vomit Seferino she came to the hospital but she has significant diarrhea about 5-6 times per day which is watery no blood noted. She checked her temperature at home was 100.5 so her daughter make her call the office of Dr. garber who instructed her to come to emergency room. She has some coughing. Also shows some abdominal distention. Patient has not voided says yesterday had Solares catheter was inserted in the emergency room. she follow up with Dr. Valladares for her chemotherapy and last dose of the chemotherapy was last Sunday on 12/18 She is tachycardic with heart rate 108/112, blood pressure 102/41, she had a fever of 101.9. Left Angelica Mikki 0.1K, M [place] 0.5 and platelets 90 2K. INR is 1.3, d-dimer is 2.3 elevated lactic acid 3.7, 4.1 and 5.8, sodium is low as 129, potassium n chest x-ray: ormal 4.8, magnesium of 1.1, creatinine 1.06 which is mildly elevated. Tenderness is high at 576, AST 38, LDH is 785, troponin 0.013, serum protein is 176 which is high blood culture has been sent Chest x-ray showing right pleural effusion and right lower lobe infiltrate slightly increased, possible mass at the left pulmonary hilum. Chest CTA is negative for PE and there is masslike adenopathy of the left pulmonary hilum with lymph nodes that measure up to 3 cm, there isn't currently taking infiltrate in the left lower lobe Gallbladder ultrasound: Numerous gallstones, no significant gallbladder wall thickening EKG showing sinus tachycardia at 1:30, no significant ST-T changes, QTC is 470 In the emergency room patient received IV fluids, started on Zithromax, vancomycin, cefepime. Patient also on D5 normal saline at 100 mL per hour Infectious place was well for oncologist and infectious disease specialist 12/23/2019 Patient remains in the ICU, she still dyspneic have difficulty talking, she has a difficult for the phlegm but no chest pain. She vomited all her medicines and foods she took. She still complaining of from abdominal pain and tenderness all over especially in the left lower quadrant and also on the right side. She still have diarrhea. She has low-grade temperature today of 100.9. She is saturating 97% on 4 L oxygen nasal cannula, blood pressure 112/50 and she is tachypneic. CBC is still showing pancytopenia of WBCs 0.1K, hemoglobin 8.9 and platelets 40 K, subcu heparin was held. Sodium 132, creatinine 1.1, sugar is controlled, magnesium 1.7, proBNP is 1660, Echocardiogram: Ejection fraction 6065% with LVH, patient went into A. 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 Rangel as an outpatient for abnormal heartbeat. C. diff test is negative. Cholesterol studies are pending. She has CT of the abdomen and pelvis showing right pneumonia and pleural effusion, colitis in the ascending colon and cecum and hydrops gallbladder with cirrhosis, HIDA scan is ordered Blood cultures positive for E. coli and patient is already on cefepime and vancomycin. 12/24/2019 Patient ICU, awake but looks tired, she still somewhat dyspneic, she had use by BiPAP but last night, she saturating 94 L oxygen via nasal cannula. No chest pain Patient had the tibial vomiting last night, however her diarrhea was stopped. She still complaining of from RUQ pain and tenderness. HIDA scan for gallbladder functionality is pending. Still Solares catheter in place. Blood pressure is 99/66, heart rate 89. That's still showing pancytopenia which looks similar to yesterday. Creatinine 1.0, sodium 133, sugar 255. She is on D5 normal saline at 100 mL per hour, we'll order that this referral millimeter per hour. Cardizem drip was stopped this morning. And she was started on atenolol 25 mg daily and digoxin to 50 g daily. She is on cefepime for E. coli septicemia. 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 Creatinine up to 1.65, sodium 133, specimens normal Procalcitonin is increased to 8.99, [place] [address]. Blood culture is growing E. coli and Citrobacter. Vancomycin was discontinued and continue with cefepime HIDA scan: Chronic cholecystitis or biliary dyskinesia, consult surgery team Patient remains critically L Review of Systems Patient could not provide information Active Medications Generic Name Dose Route Start Last Admin Trade Name Freq PRN Reason Stop Dose Admin Acetaminophen 1,000 mg 12/23/19 08:23 12/23/19 08:50 Tylenol Tab PO 1,000 mg Q6HR PRN Administration Fever and/ or Pain Albuterol Sulfate 2.5 mg 12/22/19 08:00 12/25/19 11:15 Ventolin Nebulized INHALATION 2.5 mg RT-Q4H HAKAN Administration Albuterol/Ipratropium 3 ml 12/22/19 05:37 12/22/19 11:26 Duoneb 0.5 Mg-3 Mg/3 Ml Soln INHALATION 3 ml RT-QID PRN Administration Shortness Of Breath Or Wheezing Atenolol 25 mg 12/24/19 09:00 12/25/19 09:06 Tenormin PO Not Given DAILY HAKAN Chlorhexidine Gluconate 15 ml 12/25/19 09:00 12/25/19 09:58 Peridex MUCOUS MEM 15 ml BID HAKAN Administration Famotidine 20 mg 12/25/19 09:00 12/25/19 08:29 Pepcid IV 20 mg DAILY HAKAN Administration Heparin Sodium (Porcine) 5,000 unit 12/25/19 21:00 Heparin SQ Q12HR HAKAN Dextrose/Sodium Chloride 1,000 mls @ 20 mls/hr 12/22/19 10:15 12/25/19 00:39 Dextrose 5%-Ns Iv Soln IV 75 mls/hr .Q24H [facility]AKAN Administration Diltiazem HCl 125 mg/ Sodium 125 mls @ 5 mls/hr 12/23/19 13:00 12/24/19 11:23 Chloride IV 0 mg/hr .Q24H [facility]AN 0 mls/hr Infusion 5 MG/HR Cefepime HCl 2 gm/ Sodium 100 mls @ 200 mls/hr 12/24/19 21:00 12/25/19 08:28 Chloride IVPB 200 mls/hr Q12HR HAKAN Administration Propofol 1,000 mg/ IV Solution 100 mls @ 0 mls/hr 12/25/19 06:30 12/25/19 07:00 IV 40.85 mcg/kg/min .Q0M HAKAN 25 mls/hr Titration Protocol Titrate Norepinephrine Bitartrate 8 mg 258 mls @ 65.132 mls/hr 12/25/19 09:45 12/25/19 12:22 / Sodium Chloride IV 0.32 mcg/kg/min .Q3H58M [facility] 63.158 mls/hr Titration Protocol 0.33 MCG/KG/MIN Insulin Aspart 0 unit 12/24/19 06:00 12/25/19 12:22 Novolog SQ 2 unit Q6H HAKAN Administration Protocol Lorazepam 0.5 mg 12/24/19 01:16 12/24/19 01:23 Ativan IV 0.5 mg Q4HR PRN Administration Anxiety Miscellaneous Information 1 each 12/23/19 05:46 Potassium Per Protocol MISCELLANE DAILY PRN Per Protocol Protocol Miscellaneous Information 1 each 12/23/19 05:47 Magnesium Per Protocol MISCELLANE DAILY PRN Per Protocol Protocol Ondansetron HCl 4 mg 12/22/19 12:11 12/23/19 09:43 Zofran IVP 4 mg Q6HR PRN Administration Nausea And Vomiting Prochlorperazine Maleate 10 mg 12/22/19 19:36 12/22/19 20:30 Compazine PO 10 mg Q8HR PRN Administration Nausea And Vomiting Objective - Vital Signs Vital signs: Vital Signs Temp 98.9 F 12/25/19 08:00 Pulse 89 12/25/19 12:00 Resp 20 12/25/19 12:00 BP 114/49 12/25/19 09:30 Pulse Ox 98 12/25/19 12:00 Intake & Output 12/24/19 12/25/19 12/25/19 18:59 06:59 18:59 Intake Total 1045.908 6729.979 562.448 Output Total 365 75 40 Balance 794.682 0714.979 522.448 Weight 102 kg Intake: IV 1050 2000 230 Cefepime 2 gm In Sodium 100 100 Chloride 0.9% 100 ml @ 200 mls/hr IVPB Q8HR [facility] Rx#:[id number] Dextrose 5%-0.9% NaCl 1, 950 900 230 000 ml @ 20 mls/hr IV . Q24H [facility] Rx#:[id number] Lactated Ringers 1,000 ml 1000 @ 999 mls/hr IV .Q1H1M [facility] Rx#:[id number] Intake, IV Titration 50.708 127.979 332.448 Amount Diltiazem 125 mg In 50.708 Sodium Chloride 0.9% 100 ml @ 5 MG/HR 5 mls/hr IV .Q24H [facility] Rx#:[id number] Norepinephrine 4 mg In 124.154 328.302 Sodium Chloride 0.9% 250 ml @ 0.05 MCG/KG/MIN 18. 955 mls/hr IV .[id number] [facility] Rx#:[id number] Norepinephrine 8 mg In 1.086 Sodium Chloride 0.9% 250 ml @ 0.33 MCG/KG/MIN 65. 132 mls/hr IV .Q3H58M [facility] Rx#:[id number] Propofol 1,000 mg In 3.825 3.06 Empty Bag 1 bag @ Titrate IV .Q0M [facility] Rx#: [id number] Output: Urine 365 75 40 Other: Voiding Method Indwelling Catheter Indwelling Catheter ABP, PAP, CO, CI - Last Documented Arterial Blood Pressure 129/43 - Exam -GENERAL: The patient is intubated and sedated HEENT: Pupils are round and equally reacting to light. EOMI. No scleral icterus. No conjunctival pallor. Normocephalic, atraumatic. No pharyngeal erythema. No thyromegaly. CARDIOVASCULAR: S1 and S2 present. No murmurs, rubs, or gallops. -PULMONARY: Chest is clear to auscultation,. Decreased breath sounds in the lung bases with some crackers -ABDOMEN: Soft, generalized abdominal pain, more on the left lower side, no rebound tenderness, no guarding, distended, normoactive bowel sounds. No palpable organomegaly. Solares catheter is in place MUSCULOSKELETAL: No joint swelling or deformity. EXTREMITIES: No cyanosis, clubbing, or pedal edema. NEUROLOGICAL: Gross neurological examination did not reveal any focal deficits. SKIN: No rashes. No petechiae - Labs CBC & Chem 7: 12/25/19 05:28 12/25/19 05:28 Labs: Abnormal Lab Results - Last 24 Hours (Table) 12/24/19 12/25/19 12/25/19 Range/Units 18:06 00:10 05:28 WBC (3.8-10.6) k/uL RBC (3.80-5.40) m/uL Hgb (11.4-16.0) gm/dL Hct (34.0-46.0) % MCV (80.0-100.0) fL Plt Count (150-450) k/uL ABG pH (7.35-7.45) ABG pCO2 (35-45) mmHg ABG pO2 (83-108) mmHg ABG HCO3 (21-25) mmol/L ABG O2 Saturation (94-97) % Sodium (137-145) mmol/L Carbon Dioxide (22-30) mmol/L BUN (7-17) mg/dL Creatinine (0.52-1.04) mg/dL Glucose (74-99) mg/dL POC Glucose (mg/dL) 205 H 192 H (75-99) mg/dL Plasma Lactic Acid Toño (0.7-2.0) mmol/L Calcium (8.4-10.2) mg/dL Procalcitonin 8.99 H (0.02-0.09) ng/mL 12/25/19 12/25/19 12/25/19 Range/Units 05:28 05:28 05:28 WBC 0.2 L* (3.8-10.6) k/uL RBC 2.77 L (3.80-5.40) m/uL Hgb 8.9 L (11.4-16.0) gm/dL Hct 28.3 L (34.0-46.0) % MCV 102.1 H (80.0-100.0) fL Plt Count 97 L D (150-450) k/uL ABG pH (7.35-7.45) ABG pCO2 (35-45) mmHg ABG pO2 (83-108) mmHg ABG HCO3 (21-25) mmol/L ABG O2 Saturation (94-97) % Sodium 133 L (137-145) mmol/L Carbon Dioxide 21 L (22-30) mmol/L BUN 39 H (7-17) mg/dL Creatinine 1.65 H (0.52-1.04) mg/dL Glucose 181 H (74-99) mg/dL POC Glucose (mg/dL) (75-99) mg/dL Plasma Lactic Acid Toño 2.1 H* (0.7-2.0) mmol/L Calcium 7.1 L (8.4-10.2) mg/dL Procalcitonin (0.02-0.09) ng/mL 12/25/19 12/25/19 12/25/19 Range/Units 05:57 06:35 08:09 WBC (3.8-10.6) k/uL RBC (3.80-5.40) m/uL Hgb (11.4-16.0) gm/dL Hct (34.0-46.0) % MCV (80.0-100.0) fL Plt Count (150-450) k/uL ABG pH 7.17 L* 7.31 L (7.35-7.45) ABG pCO2 57 H (35-45) mmHg ABG pO2 81 L >400 H (83-108) mmHg ABG HCO3 18 L (21-25) mmol/L ABG O2 Saturation 99.7 H (94-97) % Sodium (137-145) mmol/L Carbon Dioxide (22-30) mmol/L BUN (7-17) mg/dL Creatinine (0.52-1.04) mg/dL Glucose (74-99) mg/dL POC Glucose (mg/dL) 197 H (75-99) mg/dL Plasma Lactic Acid Toño (0.7-2.0) mmol/L Calcium (8.4-10.2) mg/dL Procalcitonin (0.02-0.09) ng/mL 12/25/19 12/25/19 Range/Units 08:39 12:16 WBC (3.8-10.6) k/uL RBC (3.80-5.40) m/uL Hgb (11.4-16.0) gm/dL Hct (34.0-46.0) % MCV (80.0-100.0) fL Plt Count (150-450) k/uL ABG pH (7.35-7.45) ABG pCO2 (35-45) mmHg ABG pO2 (83-108) mmHg ABG HCO3 (21-25) mmol/L ABG O2 Saturation (94-97) % Sodium (137-145) mmol/L Carbon Dioxide (22-30) mmol/L BUN (7-17) mg/dL Creatinine (0.52-1.04) mg/dL Glucose (74-99) mg/dL POC Glucose (mg/dL) 191 H (75-99) mg/dL Plasma Lactic Acid Toño 3.6 H* (0.7-2.0) mmol/L Calcium (8.4-10.2) mg/dL Procalcitonin (0.02-0.09) ng/mL Microbiology - Last 24 Hours (Table) 12/22/19 00:02 Blood Culture Gram Stain - Final Blood Blood Culture - Final Escherichia coli Citrobacter koseri 12/23/19 04:25 Blood Culture - Preliminary Blood No Growth after 48 hours 12/22/19 20:00 Stool Culture - Preliminary Stool Assessment and Plan Assessment: Febrile neutropenia Sepsis Secondary to pneumonia, bilateral left and right lower lobe pneumonia with pleural effusion Nonspecific colitis A. fib with RVR Dilated and hydrops gallbladder, rule out cholecystitis, which could be the source of E. coli septicemia elevated lactic acid Hyponatremia, hypovolemic Electrolyte abnormality with hypomagnesemia Dilated gallbladder, suspicious for gallbladder dysfunction or cholecystitis, however ultrasound showing no gallbladder thickening Lung cancer status post chemoradiotherapy Diabetes mellitus COPD Plan: this is a pleasant 69 years old female who presents with pneumonia and febrile neutropenia. Continue with antibiotic cefepime, follow-up culture results. Continue with IV fluids. Follow-up pulmonary service consult. Follow-up by infectious disease and oncologist. Check urinalysis and urine culture, check sputum culture. Follow-up pro-calcitonin . Consult surgery for abnormal ga llbladder . Cardiology consult , Labs and medication were reviewed.. Continue same treatment. Continue with symptomatic treatment. Resume home medication. Monitor lytes and vitals. DVT and GI prophylaxis. Further recommendations of the clinical course of the patient DVT prophylaxis: start heparin for thrombocytopenia improved GI Prophylaxis: Pepcid Prognosis is guarded
--- NOTE | 2019-12-25 13:26 | PN ---
PROGRESS NOTE Vaishnavi is a 69-year-old lady who is admitted to hospital with febrile neutropenia and has persistent atrial fibrillation. She remains hypotensive and is intubated and on vent. Heart rate is 86 beats per minute. Blood pressure is 107/49, respiratory rate is 18. Chest exam reveals diminished air entry at the bases. Heart exam reveals first and second heart sounds, irregular rhythm. Abdomen is soft. Exam of extremities reveals mild edema. Peripheral pulses are felt. The patient is currently on Levophed, atenolol and digoxin. Atenolol had been held because of mild hypotension. I am going to stop the digoxin today because of elevated creatinine at 1.6. She is not a candidate for anticoagulation given the pancytopenia. ASSESSMENT: 1. Persistent atrial fibrillation with better controlled ventricular rate. 2. Respiratory failure. 3. Febrile neutropenia. PLAN: Resume the atenolol when patient is off the pressors. Prognosis is guarded. An echocardiogram on this admission revealed normal LV function. We will see the patient on an as-needed basis at this time. MMODL / IJN: [id number] /
--- NOTE | 2019-12-25 14:13 | P.PN ---
Subjective Progress Note Date: 12/25/19 Principal diagnosis: febrile neutropenia Pt is sedated and mechanically ventilated as of early this AM Objective - Vital Signs Vital signs: Vital Signs Temp 98.9 F 12/25/19 08:00 Pulse 82 12/25/19 13:00 Resp 20 12/25/19 13:00 BP 114/49 12/25/19 09:30 Pulse Ox 98 12/25/19 13:00 Intake & Output 12/24/19 12/25/19 12/25/19 18:59 06:59 18:59 Intake Total 0772.167 3989.979 562.448 Output Total 365 75 40 Balance 468.832 6954.979 522.448 Weight 102 kg Intake: IV 1050 2000 230 Cefepime 2 gm In Sodium 100 100 Chloride 0.9% 100 ml @ 200 mls/hr IVPB Q8HR [facility] Rx#:[id number] Dextrose 5%-0.9% NaCl 1, 950 900 230 000 ml @ 20 mls/hr IV . Q24H [facility] Rx#:[id number] Lactated Ringers 1,000 ml 1000 @ 999 mls/hr IV .Q1H1M [facility] Rx#:[id number] Intake, IV Titration 50.708 127.979 332.448 Amount Diltiazem 125 mg In 50.708 Sodium Chloride 0.9% 100 ml @ 5 MG/HR 5 mls/hr IV .Q24H [facility] Rx#:[id number] Norepinephrine 4 mg In 124.154 328.302 Sodium Chloride 0.9% 250 ml @ 0.05 MCG/KG/MIN 18. 955 mls/hr IV .I04W51M [facility] Rx#:[id number] Norepinephrine 8 mg In 1.086 Sodium Chloride 0.9% 250 ml @ 0.33 MCG/KG/MIN 65. 132 mls/hr IV .Q3H58M [facility] Rx#:[id number] Propofol 1,000 mg In 3.825 3.06 Empty Bag 1 bag @ Titrate IV .Q0M [facility] Rx#: [id number] Output: Urine 365 75 40 Other: Voiding Method Indwelling Catheter Indwelling Catheter ABP, PAP, CO, CI - Last Documented Arterial Blood Pressure 119/38 - Exam NAD, no swelling in legs, mild swelling in the arms, S1S2, no murmur, mild abd distension - Constitutional General appearance: Present: average body habitus, no acute distress - Labs CBC & Chem 7: 12/25/19 05:28 12/25/19 05:28 Labs: Abnormal Lab Results - Last 24 Hours (Table) 12/24/19 12/25/19 12/25/19 Range/Units 18:06 00:10 05:28 WBC (3.8-10.6) k/uL RBC (3.80-5.40) m/uL Hgb (11.4-16.0) gm/dL Hct (34.0-46.0) % MCV (80.0-100.0) fL Plt Count (150-450) k/uL ABG pH (7.35-7.45) ABG pCO2 (35-45) mmHg ABG pO2 (83-108) mmHg ABG HCO3 (21-25) mmol/L ABG O2 Saturation (94-97) % Sodium (137-145) mmol/L Carbon Dioxide (22-30) mmol/L BUN (7-17) mg/dL Creatinine (0.52-1.04) mg/dL Glucose (74-99) mg/dL POC Glucose (mg/dL) 205 H 192 H (75-99) mg/dL Plasma Lactic Acid Toño (0.7-2.0) mmol/L Calcium (8.4-10.2) mg/dL Procalcitonin 8.99 H (0.02-0.09) ng/mL 12/25/19 12/25/19 12/25/19 Range/Units 05:28 05:28 05:28 WBC 0.2 L* (3.8-10.6) k/uL RBC 2.77 L (3.80-5.40) m/uL Hgb 8.9 L (11.4-16.0) gm/dL Hct 28.3 L (34.0-46.0) % MCV 102.1 H (80.0-100.0) fL Plt Count 97 L D (150-450) k/uL ABG pH (7.35-7.45) ABG pCO2 (35-45) mmHg ABG pO2 (83-108) mmHg ABG HCO3 (21-25) mmol/L ABG O2 Saturation (94-97) % Sodium 133 L (137-145) mmol/L Carbon Dioxide 21 L (22-30) mmol/L BUN 39 H (7-17) mg/dL Creatinine 1.65 H (0.52-1.04) mg/dL Glucose 181 H (74-99) mg/dL POC Glucose (mg/dL) (75-99) mg/dL Plasma Lactic Acid Toño 2.1 H* (0.7-2.0) mmol/L Calcium 7.1 L (8.4-10.2) mg/dL Procalcitonin (0.02-0.09) ng/mL 12/25/19 12/25/19 12/25/19 Range/Units 05:57 06:35 08:09 WBC (3.8-10.6) k/uL RBC (3.80-5.40) m/uL Hgb (11.4-16.0) gm/dL Hct (34.0-46.0) % MCV (80.0-100.0) fL Plt Count (150-450) k/uL ABG pH 7.17 L* 7.31 L (7.35-7.45) ABG pCO2 57 H (35-45) mmHg ABG pO2 81 L >400 H (83-108) mmHg ABG HCO3 18 L (21-25) mmol/L ABG O2 Saturation 99.7 H (94-97) % Sodium (137-145) mmol/L Carbon Dioxide (22-30) mmol/L BUN (7-17) mg/dL Creatinine (0.52-1.04) mg/dL Glucose (74-99) mg/dL POC Glucose (mg/dL) 197 H (75-99) mg/dL Plasma Lactic Acid Toño (0.7-2.0) mmol/L Calcium (8.4-10.2) mg/dL Procalcitonin (0.02-0.09) ng/mL 12/25/19 12/25/19 Range/Units 08:39 12:16 WBC (3.8-10.6) k/uL RBC (3.80-5.40) m/uL Hgb (11.4-16.0) gm/dL Hct (34.0-46.0) % MCV (80.0-100.0) fL Plt Count (150-450) k/uL ABG pH (7.35-7.45) ABG pCO2 (35-45) mmHg ABG pO2 (83-108) mmHg ABG HCO3 (21-25) mmol/L ABG O2 Saturation (94-97) % Sodium (137-145) mmol/L Carbon Dioxide (22-30) mmol/L BUN (7-17) mg/dL Creatinine (0.52-1.04) mg/dL Glucose (74-99) mg/dL POC Glucose (mg/dL) 191 H (75-99) mg/dL Plasma Lactic Acid Toño 3.6 H* (0.7-2.0) mmol/L Calcium (8.4-10.2) mg/dL Procalcitonin (0.02-0.09) ng/mL Microbiology - Last 24 Hours (Table) 12/22/19 00:02 Blood Culture Gram Stain - Final Blood Blood Culture - Final Escherichia coli Citrobacter koseri 12/23/19 04:25 Blood Culture - Preliminary Blood No Growth after 48 hours 12/22/19 20:00 Stool Culture - Preliminary Stool Assessment and Plan (1) Neutropenic typhlitis Narrative/Plan: NPO. Do not use gut. If nutrition is needed use parenteral CT AP gallstomes and colitis, Surgery consulted Current Visit: Yes Status: Acute Priority: High Code(s): K36 - OTHER APPENDICITIS SNOMED Code(s): 4810737 (2) Neutropenic fever Narrative/Plan: GCSF given 12/19, no additional GCSF at this time Pancultures positive for Escherichia coli bacteremia. No recent fever ID has seen patient WBC 0.2 today Current Visit: Yes Status: Acute Priority: High Code(s): D70.9 - NEUTROPENIA, UNSPECIFIED; R50.81 - FEVER PRESENTING WITH CONDITIONS CLASSIFIED ELSEWHERE SNOMED Code(s): 914344784 (3) Pancytopenia due to antineoplastic chemotherapy Narrative/Plan: Exacerbated by acute infection. Long acting G-CSF administered 12/19, no short acting to be administered at this time. WBC 0.2 today Hemoglobin 8.9, no need for transfusion. Transfuse for hemoglobin less than 7 or if patient is severely symptomatic. Platelets 97,000, no need for transfusion at this time. Close monitoring for bleeding. Consider diuretic if given transfusion to reduce risk fluid overload Current Visit: Yes Status: Acute Priority: High Code(s): D61.810 - ANTINEOPLASTIC CHEMOTHERAPY INDUCED PANCYTOPENIA; T45.1X5A - ADVERSE EFFECT OF ANTINEOPLASTIC AND IMMUNOSUP DRUGS, INIT SNOMED Code(s): 067872365558435 Plan: Agree with current plan. Critical care ICU care
[2019-12-25] MEDS: DILTIAZEM 125 MG in SODIUM CHLORIDE 0.9% 100 ML IV SCH (15:08)
[2019-12-25] MEDS ORDERED: SODIUM CHLORIDE 0.9% 1,000 ML IV ONE ×2 (15:44→18:19)
[2019-12-25 16:25] VITALS: BP 116/60
[2019-12-25 18:22] LABS: Glucose,Whole Blood 205 mg/dL (75-99)
--- NOTE | 2019-12-25 18:54 | OP ---
OPERATIVE REPORT OPERATIVE REPORT: Placement of a right subclavian triple-lumen catheter. PREOPERATIVE DIAGNOSIS: Sepsis and hypotension. POSTOPERATIVE DIAGNOSIS: Sepsis and hypotension. ANESTHESIA USED: 2 mL of 1% lidocaine. PROCEDURE DESCRIPTION: The patient was placed in a supine position. The area of the right subclavian region was prepared in a sterile fashion and drapes were applied. Using the infraclavicular approach, the right subclavian vein was easily cannulated, and a guidewire was placed. The area of the dilator wire was dilated. Then a triple-lumen catheter was inserted over the guidewire, and the guidewire was removed. Good placement was noted on the chest x-ray. Good blood flow was noted in the 3 different ports of the triple-lumen catheter. Line was secured using 3.0 silk sutures. No evidence of any immediate complications. MMODL / IJN: [id number] /
--- NOTE | 2019-12-25 19:02 | OP ---
OPERATIVE REPORT OPERATIVE REPORT: Placement of a right radial arterial line. PREOPERATIVE DIAGNOSIS: Sepsis and hypotension. POSTOPERATIVE DIAGNOSIS: Sepsis and hypotension. ANESTHESIA USED: None deployed. PROCEDURE DESCRIPTION: The patient was placed in supine position. The right wrist was placed on a table at the bedside. Then the area of the right wrist was prepared in a sterile fashion and drapes were applied. The right radial artery was palpated, cannulated easily. A guidewire was placed, and a Cook's catheter was inserted over the guidewire. The guidewire was removed. Good blood flow and good waveform were noted. No evidence of any immediate complication. Line was secured using 3.0 silk sutures. MMODL / IJN: [id number] /
[2019-12-25] MEDS: IPRATROPIUM-ALBUTEROL 3 ML NEB INHALATION PRN (19:16)
[2019-12-25] MEDS ORDERED: FUROSEMIDE 10 MG/ML 10 ML VIAL IV SCH (19:30)
[2019-12-25] MEDS: HEPARIN SODIUM,PORCINE 5,000 UNIT/ML 1 ML VIAL SQ SCH (20:24)
--- NOTE | 2019-12-25 22:35 | PN ---
PROGRESS NOTE DATE OF SERVICE: 12/25/2019 REASON FOR FOLLOWUP: E coli bacteremia, abdominal source. INTERVAL HISTORY: The patient did go into respiratory distress last night. The patient ended up getting intubated. The patient is currently hemodynamically stable, not on pressor support. FiO2 is currently stable at 25%. No purulent secretion through the ET or any diarrhea has been reported. PHYSICAL EXAMINATION: Blood pressure 133/42 with a pulse of 100, temperature 98. She is 97% on 40% FiO2. General description is an elderly female intubated on the vent. RESPIRATORY SYSTEM: Unlabored breathing with decreased breath sounds at the base. No wheeze. HEART: S1, S2. Regular rate and rhythm. ABDOMEN: Soft. No tenderness. LABS: Hemoglobin 8.9, white count 0.2, BUN of 39, creatinine 1.65. DIAGNOSTIC IMPRESSION AND PLAN: Patient with Gram-negative bacteremia, source likely abdominal, with concern for possible ascending cholangitis/UTI. The patient is covered with cefepime; to continue. Still remains very neutropenic. Monitor her clinical course closely. MMODL / IJN: [id number] /
[2019-12-26 00:06] LABS: Glucose,Whole Blood 196 mg/dL (75-99)
[2019-12-26] MEDS: INSULIN ASPART (NovoLOG) 100 UNIT/ML VIAL SQ SCH ×4 (00:09→18:43)
[2019-12-26] MEDS: NOREPINEPHRINE 32 MG in SODIUM CHLORIDE 0.9% 218 ML IV SCH ×2 (00:59→07:59)
[2019-12-26] MEDS: ALBUTEROL NEBULIZED 2.5 MG/3 ML INHALATION SCH ×5 (02:58→19:33)
[2019-12-26] MEDS ORDERED: FUROSEMIDE 10 MG/ML 10 ML VIAL IV SCH (04:00)
[2019-12-26 04:24] LABS: HCT 28.8 % (34.0-46.0); HGB 9.3 gm/dL (11.4-16.0); Hypochromasia Moderate; MCH 31.7 pg (25.0-35.0); MCHC 32.1 g/dL (31.0-37.0); MCV 98.5 fL (80.0-100.0); Mean Platelet Volume 11.1; RBC 2.92 m/uL (3.80-5.40); RDW 14.3 % (11.5-15.5)
[2019-12-26 04:26] LABS: Calcium 7.1 mg/dL (8.4-10.2); Potassium 4.2 mmol/L (3.5-5.1)
[2019-12-26 04:29] LABS: Platelet Count 82 k/uL (150-450); WBC 0.4 k/uL (3.8-10.6)
[2019-12-26] MEDS: PROPOFOL 1,000 MG in EMPTY BAG 1 BAG IV SCH ×2 (05:04→19:55)
[2019-12-26 06:11] LABS: Glucose,Whole Blood 160 mg/dL (75-99)
--- NOTE | 2019-12-26 07:10 | XR ---
EXAMINATION TYPE: XR chest 1V portable DATE OF EXAM: 12/26/2019 COMPARISON: Prior chest x-ray 12/25/2019 HISTORY: Tube placement TECHNIQUE: Single frontal view of the chest is obtained. FINDINGS: Endotracheal tube and NG tube are overlying appropriate positions. There is a right subcla vian central venous catheter, distal tip over the right atrium. There are overlying cardiac leads. Pa tchy bilateral perihilar airspace disease is present. There is no pneumothorax. Basilar density in th e right shows blunting of the right costophrenic angle and obscured right hemidiaphragm. Heart is sta ble. IMPRESSION: Correlate for congestive heart failure, pneumonia. Right pleural effusion.
[2019-12-26 07:37] LABS: ABG Base Excess -14.2 mmol/L; ABG HCO3 14 mmol/L (21-25); ABG Oxygen Saturation 95.3 % (94-97); ABG PCO2 37 mmHg (35-45); ABG PO2 81 mmHg (83-108); ABG TCO2 15 mmol/L (19-24); Allen Test Performed? Yes
[2019-12-26 07:40] LABS: ABG PH 7.19 (7.35-7.45)
[2019-12-26] MEDS ORDERED: SODIUM BICARB 8.4% 50 ML SYR (1 MEQ/ML) IV STA ×3 (07:52→16:08)
[2019-12-26] MEDS: DEXTROSE 5% IN WATER 1,000 ML with SODIUM BICARB (1 MEQ/ML) 150 ML IV SCH ×2 (08:15→19:57)
[2019-12-26] MEDS: HEPARIN SODIUM,PORCINE 5,000 UNIT/ML 1 ML VIAL SQ SCH (08:22)
[2019-12-26] MEDS: FAMOTIDINE 20 MG/2 ML VIAL IV SCH (08:22)
[2019-12-26] MEDS: CHLORHEXIDINE GLUCONATE 15 ML CUP MUCOUS MEM SCH (08:22)
[2019-12-26] MEDS: CEFEPIME 2 GM in SODIUM CHLORIDE 0.9% 100 ML IVPB SCH (08:22)
[2019-12-26] MEDS: ATENOLOL 25 MG TAB PO SCH (08:41)
--- NOTE | 2019-12-26 09:03 | P.PN ---
Subjective This is a pleasant 69 years old female with past medical history of COPD, diabetes mellitus, lung cancer status post chemoradiotherapy. Patient presents with dyspnea and chest pain with fever, malaise of 1-2 days duration. Also patient complaining of from diarrhea abdominal pain, nausea vomiting. Patient states although she is dyspneic but thus close to her baseline as per patient states, she uses oxygen 2-3 L at home but no steroid dependent and she sees Dr. Urrutia in the outpatient setting. However over the last 2-3 days patient was not eating well with decreased appetite she didn't vomit Seferino she came to the hospital but she has significant diarrhea about 5-6 times per day which is watery no blood noted. She checked her temperature at home was 100.5 so her daughter make her call the office of Dr. garber who instructed her to come to emergency room. She has some coughing. Also shows some abdominal distention. Patient has not voided says yesterday had Solares catheter was inserted in the emergency room. she follow up with Dr. Valladares for her chemotherapy and last dose of the chemotherapy was last Sunday on 12/18 She is tachycardic with heart rate 108/112, blood pressure 102/41, she had a fever of 101.9. Left Angelica Mikki 0.1K, M [place] 0.5 and platelets 90 2K. INR is 1.3, d-dimer is 2.3 elevated lactic acid 3.7, 4.1 and 5.8, sodium is low as 129, potassium n chest x-ray: ormal 4.8, magnesium of 1.1, creatinine 1.06 which is mildly elevated. Tenderness is high at 576, AST 38, LDH is 785, troponin 0.013, serum protein is 176 which is high blood culture has been sent Chest x-ray showing right pleural effusion and right lower lobe infiltrate slightly increased, possible mass at the left pulmonary hilum. Chest CTA is negative for PE and there is masslike adenopathy of the left pulmonary hilum with lymph nodes that measure up to 3 cm, there isn't currently taking infiltrate in the left lower lobe Gallbladder ultrasound: Numerous gallstones, no significant gallbladder wall thickening EKG showing sinus tachycardia at 1:30, no significant ST-T changes, QTC is 470 In the emergency room patient received IV fluids, started on Zithromax, vancomycin, cefepime. Patient also on D5 normal saline at 100 mL per hour Infectious place was well for oncologist and infectious disease specialist 12/23/2019 Patient remains in the ICU, she still dyspneic have difficulty talking, she has a difficult for the phlegm but no chest pain. She vomited all her medicines and foods she took. She still complaining of from abdominal pain and tenderness all over especially in the left lower quadrant and also on the right side. She still have diarrhea. She has low-grade temperature today of 100.9. She is saturating 97% on 4 L oxygen nasal cannula, blood pressure 112/50 and she is tachypneic. CBC is still showing pancytopenia of WBCs 0.1K, hemoglobin 8.9 and platelets 40 K, subcu heparin was held. Sodium 132, creatinine 1.1, sugar is controlled, magnesium 1.7, proBNP is 1660, Echocardiogram: Ejection fraction 6065% with LVH, patient went into A. fib today with RVR at the rate 150, started on Cardizem drip at 5 mg per hour, no need for heparin drip for thrombocytopenia, consult hat sizer, patient already C Dr. Rangel as an outpatient for abnormal heartbeat. C. diff test is negative. Cholesterol studies are pending. She has CT of the abdomen and pelvis showing right pneumonia and pleural effusion, colitis in the ascending colon and cecum and hydrops gallbladder with cirrhosis, HIDA scan is ordered Blood cultures positive for E. coli and patient is already on cefepime and vancomycin. 12/24/2019 Patient ICU, awake but looks tired, she still somewhat dyspneic, she had use by BiPAP but last night, she saturating 94 L oxygen via nasal cannula. No chest pain Patient had the tibial vomiting last night, however her diarrhea was stopped. She still complaining of from RUQ pain and tenderness. HIDA scan for gallbladder functionality is pending. Still Sloares catheter in place. Blood pressure is 99/66, heart rate 89. That's still showing pancytopenia which looks similar to yesterday. Creatinine 1.0, sodium 133, sugar 255. She is on D5 normal saline at 100 mL per hour, we'll order that this referral millimeter per hour. Cardizem drip was stopped this morning. And she was started on atenolol 25 mg daily and digoxin to 50 g daily. She is on cefepime for E. coli septicemia. 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 Creatinine up to 1.65, sodium 133, specimens normal Procalcitonin is increased to 8.99, [place] [address]. Blood culture is growing E. coli and Citrobacter. Vancomycin was discontinued and continue with cefepime HIDA scan: Chronic cholecystitis or biliary dyskinesia, consult surgery team Patient remains critically L 12/26/2019 Patient remains in the ICU, she is intubated and sedated. She is saturating 93% on FiO2 of 45%. However blood gas this morning showing significant acidosis of 7.19, pO2 is low at 81 and, and pCO2 was within normal at 37. Patient was placed on bicarbonate drip. Her creatinine went up to 2.2 and she is becoming anuric renal failure as she is making only 50 mL of urine overnight. Mixing Technician consulted Abdomen exam is benign. Labs show WBC 0.4K, hemoglobin 9.3 and platelet 82. Elevated creatinine 2.2 sodium 135, sugar controlled. ProBNP is 17,600 She has positive blood culture for E. coli and Citrobacter, ID team on the case and currently she is on cefepime. D5 normal sinus stopped and she is currently on bicarbonate drip. She is on subcu heparin Review of Systems Patient could not provide information Active Medications Generic Name Dose Route Start Last Admin Trade Name Freq PRN Reason Stop Dose Admin Acetaminophen 1,000 mg 12/23/19 08:23 12/23/19 08:50 Tylenol Tab PO 1,000 mg Q6HR PRN Administration Fever and/ or Pain Albuterol Sulfate 2.5 mg 12/22/19 08:00 12/26/19 07:31 Ventolin Nebulized INHALATION 2.5 mg RT-Q4H HAKAN Administration Albuterol/Ipratropium 3 ml 12/22/19 05:37 12/25/19 19:16 Duoneb 0.5 Mg-3 Mg/3 Ml Soln INHALATION 3 ml RT-QID PRN Administration Shortness Of Breath Or Wheezing Atenolol 25 mg 12/24/19 09:00 12/26/19 08:41 Tenormin PO Not Given DAILY HAKAN Chlorhexidine Gluconate 15 ml 12/25/19 09:00 12/26/19 08:22 Peridex MUCOUS MEM 15 ml BID HAKAN Administration Famotidine 20 mg 12/25/19 09:00 12/26/19 08:22 Pepcid IV 20 mg DAILY HAKAN Administration Furosemide 60 mg 12/26/19 04:00 12/26/19 04:30 Lasix IV 60 mg Q8H HAKAN Administration Heparin Sodium (Porcine) 5,000 unit 12/25/19 21:00 12/26/19 08:22 Heparin SQ 5,000 unit Q12HR HAKAN Administration Dextrose/Sodium Chloride 1,000 mls @ 20 mls/hr 12/22/19 10:15 12/25/19 15:23 Dextrose 5%-Ns Iv Soln IV 20 mls/hr .Q24H HAKAN Administration Diltiazem HCl 125 mg/ Sodium 125 mls @ 5 mls/hr 12/23/19 13:00 12/25/19 15:08 Chloride IV Not Given .Q24H HAKAN 5 MG/HR Cefepime HCl 2 gm/ Sodium 100 mls @ 200 mls/hr 12/24/19 21:00 12/26/19 08:22 Chloride IVPB 200 mls/hr Q12HR HAKAN Administration Propofol 1,000 mg/ IV Solution 100 mls @ 0 mls/hr 12/25/19 06:30 12/26/19 08:52 IV 10 mcg/kg/min .Q0M HAKAN 6.432 mls/hr Titration Protocol Titrate Norepinephrine Bitartrate 32 250 mls @ 2.391 mls/hr 12/26/19 00:45 12/26/19 07:59 mg/ Sodium Chloride IV 0.67 mcg/kg/min .Q24H HAKAN 32.034 mls/hr Administration Protocol 0.05 MCG/KG/MIN Sodium Bicarbonate 150 ml/ 1,150 mls @ 100 mls/hr 12/26/19 08:00 12/26/19 08:15 Dextrose/Water IV 100 mls/hr .[id number] HAKAN Administration Insulin Aspart 0 unit 12/24/19 06:00 12/26/19 06:23 Novolog SQ 1 unit Q6H HAKAN Administration Protocol Lorazepam 0.5 mg 12/24/19 01:16 12/24/19 01:23 Ativan IV 0.5 mg Q4HR PRN Administration Anxiety Miscellaneous Information 1 each 12/23/19 05:46 Potassium Per Protocol MISCELLANE DAILY PRN Per Protocol Protocol Miscellaneous Information 1 each 12/23/19 05:47 Magnesium Per Protocol MISCELLANE DAILY PRN Per Protocol Protocol Ondansetron HCl 4 mg 12/22/19 12:11 12/23/19 09:43 Zofran IVP 4 mg Q6HR PRN Administration Nausea And Vomiting Prochlorperazine Maleate 10 mg 12/22/19 19:36 12/22/19 20:30 Compazine PO 10 mg Q8HR PRN Administration Nausea And Vomiting Objective - Vital Signs Vital signs: Vital Signs Temp 98.3 F 12/26/19 08:00 Pulse 121 H 12/26/19 08:45 Resp 20 12/26/19 08:45 BP 116/60 12/26/19 08:45 Pulse Ox 93 L 12/26/19 08:45 Intake & Output 12/25/19 12/26/19 12/26/19 18:59 06:59 18:59 Intake Total 2329.703 1447.111 129.877 Output Total 110 45 5 Balance 2219.703 1402.111 124.877 Weight 107.2 kg Intake: IV 515 328 23 Dextrose 5%-0.9% NaCl 1, 515 295 20 000 ml @ 20 mls/hr IV . Q24H HAKAN Rx#:[id number] pressure bag 33 3 Intake, IV Titration 6785.304 7339.111 106.877 Amount Norepinephrine 32 mg In 152.228 48.737 Sodium Chloride 0.9% 218 ml @ 0.05 MCG/KG/MIN 2. 391 mls/hr IV .Q24H HAKAN Rx#:[id number] Norepinephrine 4 mg In 328.302 Sodium Chloride 0.9% 250 ml @ 0.05 MCG/KG/MIN 18. 955 mls/hr IV .[id number] HAKAN Rx#:[id number] Norepinephrine 8 mg In 426.221 466.883 Sodium Chloride 0.9% 250 ml @ 0.33 MCG/KG/MIN 65. 132 mls/hr IV .[id number] [facility] Rx#:[id number] Propofol 1,000 mg In 60.18 200 58.14 Empty Bag 1 bag @ Titrate IV .Q0M HAKAN Rx#: [id number] Sodium Chloride 0.9% 1, 1000 300 000 ml @ 999 mls/hr IV . Q1H1M ONE Rx#:[id number] Output: Urine 110 45 5 Other: Voiding Method Indwelling Catheter Indwelling Catheter ABP, PAP, CO, CI - Last Documented Arterial Blood Pressure 124/43 - Exam -GENERAL: The patient is intubated and sedated HEENT: Pupils are round and equally reacting to light. EOMI. No scleral icterus. No conjunctival pallor. Normocephalic, atraumatic. No pharyngeal erythema. No thyromegaly. CARDIOVASCULAR: S1 and S2 present. No murmurs, rubs, or gallops. -PULMONARY: Chest is clear to auscultation,. Decreased breath sounds in the lung bases with some crackers -ABDOMEN: Soft, generalized abdominal pain, more on the left lower side, no rebound tenderness, no guarding, distended, normoactive bowel sounds. No palpable organomegaly. Solares catheter is in place MUSCULOSKELETAL: No joint swelling or deformity. EXTREMITIES: No cyanosis, clubbing, or pedal edema. NEUROLOGICAL: Gross neurological examination did not reveal any focal deficits. SKIN: No rashes. No petechiae - Labs CBC & Chem 7: 12/26/19 04:05 12/26/19 04:05 Labs: Abnormal Lab Results - Last 24 Hours (Table) 12/25/19 12/25/19 12/25/19 Range/Units 05:28 08:39 12:16 WBC (3.8-10.6) k/uL RBC (3.80-5.40) m/uL Hgb (11.4-16.0) gm/dL Hct (34.0-46.0) % Plt Count (150-450) k/uL ABG pH (7.35-7.45) ABG pO2 (83-108) mmHg ABG HCO3 (21-25) mmol/L ABG Total CO2 (19-24) mmol/L Sodium (137-145) mmol/L Chloride (98-107) mmol/L Carbon Dioxide (22-30) mmol/L BUN (7-17) mg/dL Creatinine (0.52-1.04) mg/dL Glucose (74-99) mg/dL POC Glucose (mg/dL) 191 H (75-99) mg/dL Plasma Lactic Acid Toño 3.6 H* (0.7-2.0) mmol/L Calcium (8.4-10.2) mg/dL Procalcitonin 8.99 H (0.02-0.09) ng/mL 12/25/19 12/26/19 12/26/19 Range/Units 18:21 00:05 04:05 WBC 0.4 L* (3.8-10.6) k/uL RBC 2.92 L (3.80-5.40) m/uL Hgb 9.3 L (11.4-16.0) gm/dL Hct 28.8 L (34.0-46.0) % Plt Count 82 L (150-450) k/uL ABG pH (7.35-7.45) ABG pO2 (83-108) mmHg ABG HCO3 (21-25) mmol/L ABG Total CO2 (19-24) mmol/L Sodium (137-145) mmol/L Chloride (98-107) mmol/L Carbon Dioxide (22-30) mmol/L BUN (7-17) mg/dL Creatinine (0.52-1.04) mg/dL Glucose (74-99) mg/dL POC Glucose (mg/dL) 205 H 196 H (75-99) mg/dL Plasma Lactic Acid Toño (0.7-2.0) mmol/L Calcium (8.4-10.2) mg/dL Procalcitonin (0.02-0.09) ng/mL 12/26/19 12/26/19 12/26/19 Range/Units 04:05 06:10 07:35 WBC (3.8-10.6) k/uL RBC (3.80-5.40) m/uL Hgb (11.4-16.0) gm/dL Hct (34.0-46.0) % Plt Count (150-450) k/uL ABG pH 7.19 L* (7.35-7.45) ABG pO2 81 L (83-108) mmHg ABG HCO3 14 L (21-25) mmol/L ABG Total CO2 15 L (19-24) mmol/L Sodium 135 L (137-145) mmol/L Chloride 111 H (98-107) mmol/L Carbon Dioxide 13 L (22-30) mmol/L BUN 50 H (7-17) mg/dL Creatinine 2.21 H (0.52-1.04) mg/dL Glucose 162 H (74-99) mg/dL POC Glucose (mg/dL) 160 H (75-99) mg/dL Plasma Lactic Acid Toño (0.7-2.0) mmol/L Calcium 7.1 L (8.4-10.2) mg/dL Procalcitonin (0.02-0.09) ng/mL Microbiology - Last 24 Hours (Table) 12/25/19 11:23 Gram Stain - Preliminary Sputum Sputum Culture - Preliminary 12/22/19 20:00 Stool Culture - Final Stool 12/23/19 04:25 Blood Culture - Preliminary Blood No Growth after 72 hours 12/22/19 00:02 Blood Culture Gram Stain - Final Blood Blood Culture - Final Escherichia coli Citrobacter koseri Assessment and Plan Assessment: Febrile neutropenia Sepsis Secondary to pneumonia, bilateral left and right lower lobe pneumonia with pleural effusion Nonspecific colitis A. fib with RVR Acute kidney injury Dilated and hydrops gallbladder, rule out cholecystitis, which could be the source of E. coli septicemia elevated lactic acid Hyponatremia, hypovolemic Electrolyte abnormality with hypomagnesemia Dilated gallbladder, suspicious for gallbladder dysfunction or cholecystitis, however ultrasound showing no gallbladder thickening Lung cancer status post chemoradiotherapy Diabetes mellitus COPD Plan: this is a pleasant 69 years old female who presents with pneumonia and febrile neutropenia. Continue with antibiotic cefepime, follow-up culture results. Continue with IV fluids. Follow-up pulmonary service consult. Follow-up by infectious disease and oncologist. Check urinalysis and urine culture, check sputum culture. Follow-up pro-calcitonin . Consult surgery for abnormal gallbladder . Cardiology consult , Labs and medication were reviewed.. Continue same treatment. Continue with symptomatic treatment. Resume home medication. Monitor lytes and vitals. DVT and GI prophylaxis. Further recommendations of the clinical course of the patient DVT prophylaxis: start heparin for thrombocytopenia improved GI Prophylaxis: Pepcid Prognosis is guarded
[2019-12-26] MEDS: FUROSEMIDE 100 MG in SODIUM CHLORIDE 0.9% 90 ML IV SCH ×2 (09:21→18:52)
[2019-12-26] MEDS: methylPREDNISolone SOD SUCCI 125 MG/2 ML VIAL IV SCH ×3 (09:22→17:48)
[2019-12-26] MEDS: DILTIAZEM 125 MG in SODIUM CHLORIDE 0.9% 100 ML IV SCH (09:30)
[2019-12-26 10:07] VITALS: BMI 41.8
--- NOTE | 2019-12-26 11:02 | P.NPCON ---
History of Present Illness - Reason for Consult Consult date: 12/26/19 acute renal failure - Chief Complaint Septic shock - History of Present Illness This is a 69-year-old female seen in consultation with acute kidney injury from septic shock. Creatinine has gone up from 1.06 on 12/21/2021 2.1 this morning, urine output is down. Lactic acid was 5.8 as of 12/22/2019 is down to 3.6 this morning She was admitted with the and underlying history of COPD diabetes status post chemotherapy for lung cancer. Came in with dyspnea and chest pain fever. Found to have E. coli bacteremia dated 12/22/2019. Workup with CTA on 629 was negative a computed tomography scan of the abdomen and pelvis showed colitis cirrhosis and cholelithiasis. She became severely hypotensive yesterday with blood pressure at 67/38 at 8:15 AM. Urine output has been decreasing over the last 4-48 hours Currently she is on the vent on 40% FiO2. She is on levo fed large dose. Past Medical History Past Medical History: Cancer, COPD, Diabetes Mellitus Additional Past Medical History / Comment(s): lung CA X2 with chemo therapy and radiation. History of Any Multi-Drug Resistant Organisms: None Reported Past Surgical History: Bladder Surgery, Hernia Repair, Tonsillectomy, Tubal Ligation Additional Past Surgical History / Comment(s): Bladder suspension, abdominal hernia repair, colonoscopy. Past Anesthesia/Blood Transfusion Reactions: No Reported Reaction Additional Past Anesthesia/Blood Transfusion Reaction / Comment(s): blood transfusion 2005 Smoking Status: Former smoker - Past Family History Father Family Medical History: Cancer Additional Family Medical History / Comment(s): lung cancer father and brother, daughter breast and ovarian CA Brother(s) Family Medical History: Cancer Additional Family Medical History / Comment(s): 2 brothers with lung cancer. Daughter(s) Family Medical History: Cancer Additional Family Medical History / Comment(s): . Breast/ovarian cancers. Medications and Allergies Home Medications Medication Instructions Recorded Confirmed Type Albuterol Inhaler (Mhu) [Ventolin 2 puff INHALATION RT-Q6H PRN 12/19/16 12/22/19 History Hfa Inhaler] Albuterol Nebulized [Ventolin 2.5 mg INHALATION RT-Q4H 12/19/16 12/22/19 History Nebulized] Atenolol [Tenormin] 25 mg PO BID 12/19/16 12/22/19 History Loratadine [Claritin] 10 mg PO HS 12/19/16 12/22/19 History Potassium Gluconate 99 mg PO BID 12/19/16 12/22/19 History Spironolactone [Aldactone] 25 mg PO DAILY 12/19/16 12/22/19 History Acetaminophen Tab [Tylenol Tab] 500 - 1,000 mg PO QID PRN 12/22/19 12/22/19 His tory Dronabinol [Marinol] 5 mg PO HS 12/22/19 12/22/19 History Fluconazole 200 mg PO DAILY 12/22/19 12/22/19 History Fluticasone/Vilanterol [Breo 1 puff INHALATION RT-DAILY 12/22/19 12/22/19 His tory Ellipta 200-25 Mcg INH] Prochlorperazine [Compazine] 10 mg PO Q6H PRN 12/22/19 12/22/19 History Torsemide [Demadex] 20 mg PO DAILY 12/22/19 12/22/19 History Vitamin D3(Unknown) 1 tab PO BID 12/22/19 12/22/19 History Allergies Allergy/AdvReac Type Severity Reaction Status Date / Time guaifenesin [From Mucinex] AdvReac Nausea & Verified 12/22/19 08:20 Vomiting Sulfa (Sulfonamide AdvReac headache Verified 12/22/19 08:20 Antibiotics) Physical Exam Vitals: Vital Signs Temp Pulse Resp BP Pulse Ox 12/26/19 10:00 125 H 20 93 L 12/26/19 09:45 124 H 20 93 L 12/26/19 09:30 124 H 20 93 L 12/26/19 09:15 124 H 20 94 L 12/26/19 09:00 116 H 20 94 L 12/26/19 08:45 121 H 20 93 L 12/26/19 08:30 113 H 20 93 L 12/26/19 08:16 114 H 12/26/19 08:15 112 H 20 94 L 12/26/19 08:00 98.3 F 117 H 20 96 12/26/19 07:52 112 H 12/26/19 07:45 116 H 18 90 L 12/26/19 07:30 125 H 20 92 L 12/26/19 07:15 122 H 20 93 L 12/26/19 07:00 131 H 20 92 L 12/26/19 06:45 112 H 22 93 L 12/26/19 06:30 112 H 20 94 L 12/26/19 06:15 116 H 22 94 L 12/26/19 06:00 98 20 94 L 12/26/19 05:45 112 H 20 94 L 12/26/19 05:30 112 H 21 95 12/26/19 05:15 105 H 22 95 12/26/19 05:00 100 23 96 12/26/19 04:45 112 H 27 H 96 12/26/19 04:30 92 22 96 12/26/19 04:15 113 H 21 96 12/26/19 04:00 98.7 F 113 H 22 96 12/26/19 03:45 123 H 20 96 12/26/19 03:30 112 H 20 96 12/26/19 03:15 92 20 99 12/26/19 03:11 96 12/26/19 03:00 96 20 97 12/26/19 02:59 98 12/26/19 02:45 93 20 96 12/26/19 02:30 102 H 20 96 12/26/19 02:15 104 H 20 96 12/26/19 02:00 96 21 96 12/26/19 01:45 93 20 96 12/26/19 01:30 93 20 96 12/26/19 01:15 86 20 96 12/26/19 01:00 102 H 20 97 12/26/19 00:45 84 20 96 12/26/19 00:30 89 20 96 12/26/19 00:15 78 20 96 12/26/19 00:00 99 F 100 20 96 12/25/19 23:45 93 20 97 12/25/19 23:30 90 20 97 12/25/19 23:17 108 H 12/25/19 23:15 92 20 97 12/25/19 23:00 103 H 20 97 12/25/19 22:45 89 21 97 12/25/19 22:30 101 H 20 97 12/25/19 22:15 86 20 97 12/25/19 22:00 101 H 20 97 12/25/19 21:45 84 20 97 12/25/19 21:30 92 20 97 12/25/19 21:15 110 H 22 97 12/25/19 21:00 100 20 97 12/25/19 20:45 87 20 98 07 20:30 91 22 97 12/25/19 20:15 86 20 97 12/25/19 20:00 96 20 97 12/25/19 19:45 98.7 F 92 20 98 12/25/19 19:33 80 0702 19:22 98 12/25/19 19:15 86 20 97 12/25/19 19:00 93 20 97 12/25/19 18:45 92 20 98 12/25/19 18:30 95 20 98 12/25/19 18:15 83 20 97 12/25/19 18:00 89 20 97 12/25/19 17:45 81 20 98 12/25/19 17:30 90 20 97 12/25/19 17:15 86 20 97 12/25/19 17:00 79 20 97 12/25/19 16:45 76 20 97 12/25/19 16:30 84 20 98 12/25/19 16:15 84 20 97 12/25/19 16:00 90 20 116/60 97 12/25/19 15:45 81 20 98 12/25/19 15:30 92 20 98 12/25/19 15:15 89 20 114/49 98 12/25/19 15:08 81 12/25/19 15:00 71 23 114/49 99 12/25/19 14:49 89 12/25/19 14:45 80 20 114/49 98 12/25/19 14:30 81 20 98 12/25/19 14:15 86 20 98 12/25/19 14:00 89 20 98 12/25/19 13:45 77 20 98 02 13:30 81 20 98 12/25/19 13:15 93 20 98 12/25/19 13:00 82 20 98 12/25/19 12:45 85 20 98 12/25/19 12:30 89 20 98 02 12:15 81 20 98 12/25/19 12:00 89 20 98 12/25/19 11:45 79 20 98 12/25/19 11:30 70 20 99 02 11:24 82 0702/20 11:15 81 20 98 07/02/20 11:00 80 20 98 Intake and Output 12/25/19 12/26/19 12/26/19 22:59 06:59 14:59 Intake Total 2472.135 645.111 370.986 Output Total 90 15 5 Balance 2382.135 630.111 365.986 Intake: IV 389 184 261 Dextrose 5% in Water 1, 200 000 ml @ 100 mls/hr IV . [id number] HAKAN with Sodium Bicarb (1 Meq/ml) 150 ml Rx#:[id number] Dextrose 5%-0.9% NaCl 1, 380 160 40 000 ml @ 20 mls/hr IV . Q24H HAKAN Rx#:[id number] pressure bag 9 24 21 Intake, IV Titration 2083.135 461.111 109.986 Amount Diltiazem 125 mg In 0 Sodium Chloride 0.9% 100 ml @ 5 MG/HR 5 mls/hr IV .Q24H HAKAN Rx#:[id number] Norepinephrine 32 mg In 152.228 48.737 Sodium Chloride 0.9% 218 ml @ 0.05 MCG/KG/MIN 2. 391 mls/hr IV .Q24H HAKAN Rx#:[id number] Norepinephrine 8 mg In 683.135 208.883 Sodium Chloride 0.9% 250 ml @ 0.33 MCG/KG/MIN 65. 132 mls/hr IV .Q3H58M HAKAN Rx#:[id number] Propofol 1,000 mg In 100 100 61.249 Empty Bag 1 bag @ Titrate IV .Q0M HAKAN Rx#: [id number] Sodium Chloride 0.9% 1, 1300 000 ml @ 999 mls/hr IV . Q1H1M ONE Rx#:[id number] Output: Urine 90 15 5 Other: Voiding Method Indwelling Catheter Indwelling Catheter Indwelling Catheter Weight 107.2 kg 107.2 kg ABP, PAP, CO, CI - Last 8 Hours Arterial Blood Pressure 114/44 Arterial Blood Pressure 116/45 Arterial Blood Pressure 119/44 Arterial Blood Pressure 115/43 Arterial Blood Pressure 116/42 Arterial Blood Pressure 124/43 Arterial Blood Pressure 109/43 Arterial Blood Pressure 108/42 Arterial Blood Pressure 117/43 Arterial Blood Pressure 103/42 Arterial Blood Pressure 107/44 Arterial Blood Pressure 117/44 Arterial Blood Pressure 122/44 Arterial Blood Pressure 120/44 Arterial Blood Pressure 126/43 Arterial Blood Pressure 118/39 Arterial Blood Pressure 123/40 Arterial Blood Pressure 118/41 Arterial Blood Pressure 118/42 Arterial Blood Pressure 119/42 Arterial Blood Pressure 126/41 Arterial Blood Pressure 120/41 Arterial Blood Pressure 127/43 Arterial Blood Pressure 121/41 Arterial Blood Pressure 122/40 Arterial Blood Pressure 124/41 Arterial Blood Pressure 130/41 Arterial Blood Pressure 123/41 Arterial Blood Pressure 128/41 On examination she is intubated on 40% FiO2 on levo fed and sodium bicarbonate drip. She is sedated and obtunded HEENT exam no JVP neck is supple no facial asymmetry Lungs are clear to auscultation good air entry bilaterally on the vent Heart sounds are unremarkable except for atrial fibrillation Abdomen is soft and mildly protuberant no masses felt Extremity exam was minimal edema Neurologically obtunded from sedation Results - Lab Results Most recent lab results ABG pH 7.19 (7.35-7.45) L* 12/26/19 07:35 ABG pCO2 37 mmHg (35-45) 12/26/19 07:35 ABG pO2 81 mmHg (83-108) L 12/26/19 07:35 ABG HCO3 14 mmol/L (21-25) L 12/26/19 07:35 ABG O2 Saturation 95.3 % (94-97) 12/26/19 07:35 Calcium 7.1 mg/dL (8.4-10.2) L 12/26/19 04:05 Magnesium 2.3 mg/dL (1.6-2.3) 12/25/19 05:28 12/26/19 04:05 12/26/19 04:05 Assessment and Plan Plan: Impression 1. Acute kidney injury secondary to combination of diet toxicity to contrast examination on 629 and 12/23/2019, additionally with severe hypotension from septic shock. 2. Severe acidosis, pH is 7.19 this morning pCO2 is 37 and bicarb is 13 with a gap of 11. This is from a combination of non-gap metabolic acidosis from compensation for the respiratory acidosis with pCO2 was 57, which is improved to a pCO2 of 37 this morning. PH remains low because of the loss of bicarb. Currently on IV bicarbonate drip 3. E. coli bacteremia possibly from cholecystitis 3. Computed tomography scan shows colitis and cirrhosis 4. Atrial fibrillation 5. When dependent respiratory failure Recommendations 1. Maintain mean arterial pressure around 65-70 and use additionally vasopressors as needed 2. Maintain central venous pressure around 10-12 currently in that range. 3. Would avoid using Lasix for right now. Her ventilatory status is stable. Chest x-ray shows mild right pleural effusion and possibly pneumonia 4. Defer to surgical opinion regarding cholecystitis 5. Would continue this bicarb drip for right now Thank you for this consultation and will continue to follow
--- NOTE | 2019-12-26 11:06 | P.PN ---
Subjective Progress Note Date: 12/26/19 Principal diagnosis: Gram-negative bacteremia and sepsis with neutropenia. 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 Her diagnosis was initially established in 2006, and she has been in remission on 10 recently when she was noted to have recurrence of her malignancy. Started back on chemotherapy, Her last chemotherapy was on Sunday given to her and Dr. Valladares's office. Patient presented to the ER with multiple complaints including fever with temp of 101.3, weakness, malaise, diarrhea, abdominal pain, nausea and vomiting. Patient is normally on oxygen at 2-3 L/m, patient is not steroids dependent for her underlying COPD. She sees Dr. Urrutia on outpatient basis for her underlying COPD and known history underlying lung answer. Patient called her oncologist yesterday complaining of fever and multiple constitutional symptoms, and she was advised to come to the ER. While in the ER, the patient was noted to be tachy cardic, marginal blood pressure, neutropenic, elevated lactic acid, and her CT of the chest showed no evidence of pulmonary embolism, but there is masslike adenopathy in the left hilum and cavitary lesion , noted in the left lower lobe suspicious for tumor. I evaluated the patient in the ER, reviewed her chest x- ray, CT of the chest, and I strongly felt that the patient is septic. Blood culture is showing gram-negative rods. Hence the patient was started empirically on cefepime and on vancomycin until the final cultures become available. In the meantime I recommended transfer the patient to ICU is set of the regular medical floor/oncology. Patient was reevaluated today on 12/23/19, patient remains in the ICU, I saw yesterday in the emergency room, and the changes that admission from medical floor to the ICU. Overnight, the patient had to be placed on BiPAP. Presently on 2 L nasal cannula, O2 saturation is 97%. She was on BiPAP at 12/4 and 35%, however she had difficulty tolerating the BiPAP. Blood cultures came back positive for E. coli. At her chest x-ray is suspicious for a right lower lobe pneumonia/infiltrate. CT of the abdomen and pelvis, showed moderate colitis, cirrhosis, portal vein venous hypertension, generalized anasarca, and showed changes in the right base as noted previously on CT of the chest. New left small pleural effusion noted and there was evidence of hydropic gallbladder with cholelithiasis. Patient remains empirically on antibiotics in the form of cefepime and vancomycin. Still having intermittent episodes of fever. Continues to have pancytopenia with WBC count of 0.1 hemoglobin 8.9 and platelets are down to 40,000. Electrolytes and renal profile are relatively normal. Urinalysis seems to be relatively unremarkable except for pyuria and bacteriuria. Patient was reevaluated today on 12/24/19, remains in the ICU, hemodynamically stable, not requiring any pressors, IV fluid is down to 70 mL per hour. Patient has some shortness of breath, diarrhea has resolved. Remains in A. fib with a relatively controlled rate. She is on Cardizem at 5 mg per hour. And today she was given a dose of Lasix 20 mg IV push. Patient improved but not back to baseline. Chest x-ray continues to show right lower lobe atelectasis, possible pneumonia and effusion. Echocardiogram showed good LV function. And it showed mild pulmonary hypertension. Continues to have pancytopenia with WBC count of 0.1 hemoglobin 8.5 and platelets 53,000. Electrolyte are normal renal profile is normal. Blood sugar is 208. BNP level is elevated at 3980, hence one dose of Lasix was given today. Reevaluated today on 12/25/19, patient worsened yesterday, patient developed hypotension requiring norepinephrine at 0.35 mcg/kg/m, patient's ABG showed a relative hypoxemia and hypercapnia with respiratory acidosis, and according to the nurse who called earlier today the patient was working hard to breathe. Hence I recommended immediate intubation. ABG prior to intubation showed a pO2 of 81 pCO2 of 57 pH of 7.17 and ABG post intubation showed a pO2 of over 400 pCO2 of 37 pH of 7.31. Patient is now on mechanical ventilation, assist control rate is 20, tidal volume is 450 FiO2 is 50% and PEEP 5. I was able to cut down the FiO2 to 45%. And I gave her Lasix earlier because her chest x-ray showed evidence of bilateral pleural effusions and pulmonary edema. I also wrote for Lasix again 60 mg IV push after an amp of bicarb. And recommended monitoring CV P once central line was placed earlier by me today. Blood cultures came back showing E. coli and Citrobacter koseri. Patient is on cefepime, and both organisms are sensitive to cefepime. Patient is sedated, on propofol, and she is on norepinephrine at 0.35 mcg/kg/m. WBC count today is 0.2 hemoglobin 8.9 platelets of 97,000, electrolytes are normal however her renal functioning is up with BUN of 39 and creatinine of 1.65. Lactic acid is down to 3.6 from 5.8 on admission. Reevaluated today on 01/22/20, patient continues to have a ranjith course in the ICU. Patient remains hypotensive requiring pressors. Urine output is extremely poor, and the functioning is getting worse. Chest x-ray is getting worse. Remains on norepinephrine at 0.65 mcg/kg/m, propofol at 25 mcg/kg/minute. Urine output is less than 50 mL over the whole last night midnight shift. Bicarb is down to 14 creatinine is up to 2.21 and her ABG showed a pO2 of 81 pCO2 of 37 pH of 7.18, hence patient was given bicarb and placed on sodium bicarb drip. Ventilator settings are assist control rate 2010 volume 450 FiO2 45% and PEEP of 5. Patient is wheezing, she has being wang frothy sputum. And her chest x-ray is showing evidence of pulmonary edema although possibility of underlying pneumonia is not entirely ruled out. Hence I recommended starting the patient today on a Lasix drip. She will be on Cardizem drip at 5 mg per hour will add bicarb drip and I will add Lasix drip at 10 mg per hour. Patient is yet to be seen by nephrology on consultation. CVP has been elevated. And considering her wheezing I added Solu-Medrol. Will start enteral feeding today. CBC is showing slight improvement in her WBC count up to 0.4 hemoglobin is 9.3. Patient was seen by infectious disease on consultation, concerned about her biliary findings, and probably the source of infection, however the patient is not a surgical candidate at this point. She needs to be further optimized. Objective - Vital Signs Vital signs: Vital Signs Temp 98.3 F 12/26/19 08:00 Pulse 125 H 12/26/19 10:00 Resp 20 12/26/19 10:00 BP 116/60 12/26/19 08:45 Pulse Ox 93 L 12/26/19 10:00 Intake & Output 12/25/19 12/26/19 12/26/19 18:59 06:59 18:59 Intake Total 2329.703 1447.111 370.986 Output Total 110 45 5 Balance 2219.703 1402.111 365.986 Weight 107.2 kg 107.2 kg Intake: IV 515 328 261 Dextrose 5% in Water 1, 200 000 ml @ 100 mls/hr IV . [id number] HAKAN with Sodium Bicarb (1 Meq/ml) 150 ml Rx#:[id number] Dextrose 5%-0.9% NaCl 1, 515 295 40 000 ml @ 20 mls/hr IV . Q24H HAKAN Rx#:[id number] pressure bag 33 21 Intake, IV Titration 9283.768 9031.111 109.986 Amount Diltiazem 125 mg In 0 Sodium Chloride 0.9% 100 ml @ 5 MG/HR 5 mls/hr IV .Q24H HAKAN Rx#:[id number] Norepinephrine 32 mg In 152.228 48.737 Sodium Chloride 0.9% 218 ml @ 0.05 MCG/KG/MIN 2. 391 mls/hr IV .Q24H HAKAN Rx#:[id number] Norepinephrine 4 mg In 328.302 Sodium Chloride 0.9% 250 ml @ 0.05 MCG/KG/MIN 18. 955 mls/hr IV .[id number] HAKAN Rx#:[id number] Norepinephrine 8 mg In 426.221 466.883 Sodium Chloride 0.9% 250 ml @ 0.33 MCG/KG/MIN 65. 132 mls/hr IV .Q3H58M HAKAN Rx#:[id number] Propofol 1,000 mg In 60.18 200 61.249 Empty Bag 1 bag @ Titrate IV .Q0M HAKAN Rx#: [id number] Sodium Chloride 0.9% 1, 1000 300 000 ml @ 999 mls/hr IV . Q1H1M ONE Rx#:[id number] Output: Urine 110 45 5 Other: Voiding Method Indwelling Catheter Indwelling Catheter Indwelling Catheter ABP, PAP, CO, CI - Last Documented Arterial Blood Pressure 114/44 - Exam -GENERAL: Reveals 69-year-old female on mechanical ventilation, sedated, in no distress. HEENT: PERRLA, EOMI, no icterus. Endotracheal tube and orogastric tube are intact. CARDIOVASCULAR: Irregular rhythm, patient is in atrial fibrillation. 2/6 systolic murmur thought the precordium -PULMONARY: Crackles and rhonchi and wheezes bilaterally. Symmetrical chest expansion. -ABDOMEN: Soft, nontender, no megaly, no rebound, no guarding, positive bowel sounds MUSCULOSKELETAL: 2+ bipedal edema. No limitation in range of motion. No deformities. EXTREMITIES: No cyanosis, clubbing, trace of bipedal edema. NEUROLOGICAL: Sedated, on propofol, could not be assessed. Psychiatric: Sedated, on propofol, could not be assessed SKIN: No rashes. No petechiae - Labs CBC & Chem 7: 12/26/19 04:05 12/26/19 04:05 Labs: Abnormal Lab Results - Last 24 Hours (Table) 12/25/19 12/25/19 12/25/19 Range/Units 05:28 12:16 18:21 WBC (3.8-10.6) k/uL RBC (3.80-5.40) m/uL Hgb (11.4-16.0) gm/dL Hct (34.0-46.0) % Plt Count (150-450) k/uL ABG pH (7.35-7.45) ABG pO2 (83-108) mmHg ABG HCO3 (21-25) mmol/L ABG Total CO2 (19-24) mmol/L Sodium (137-145) mmol/L Chloride (98-107) mmol/L Carbon Dioxide (22-30) mmol/L BUN (7-17) mg/dL Creatinine (0.52-1.04) mg/dL Glucose (74-99) mg/dL POC Glucose (mg/dL) 191 H 205 H (75-99) mg/dL Calcium (8.4-10.2) mg/dL Procalcitonin 8.99 H (0.02-0.09) ng/mL 12/26/19 12/26/19 12/26/19 Range/Units 00:05 04:05 04:05 WBC 0.4 L* (3.8-10.6) k/uL RBC 2.92 L (3.80-5.40) m/uL Hgb 9.3 L (11.4-16.0) gm/dL Hct 28.8 L (34.0-46.0) % Plt Count 82 L (150-450) k/uL ABG pH (7.35-7.45) ABG pO2 (83-108) mmHg ABG HCO3 (21-25) mmol/L ABG Total CO2 (19-24) mmol/L Sodium 135 L (137-145) mmol/L Chloride 111 H (98-107) mmol/L Carbon Dioxide 13 L (22-30) mmol/L BUN 50 H (7-17) mg/dL Creatinine 2.21 H (0.52-1.04) mg/dL Glucose 162 H (74-99) mg/dL POC Glucose (mg/dL) 196 H (75-99) mg/dL Calcium 7.1 L (8.4-10.2) mg/dL Procalcitonin (0.02-0.09) ng/mL 12/26/19 12/26/19 Range/Units 06:10 07:35 WBC (3.8-10.6) k/uL RBC (3.80-5.40) m/uL Hgb (11.4-16.0) gm/dL Hct (34.0-46.0) % Plt Count (150-450) k/uL ABG pH 7.19 L* (7.35-7.45) ABG pO2 81 L (83-108) mmHg ABG HCO3 14 L (21-25) mmol/L ABG Total CO2 15 L (19-24) mmol/L Sodium (137-145) mmol/L Chloride (98-107) mmol/L Carbon Dioxide (22-30) mmol/L BUN (7-17) mg/dL Creatinine (0.52-1.04) mg/dL Glucose (74-99) mg/dL POC Glucose (mg/dL) 160 H (75-99) mg/dL Calcium (8.4-10.2) mg/dL Procalcitonin (0.02-0.09) ng/mL Microbiology - Last 24 Hours (Table) 12/25/19 11:23 Gram Stain - Preliminary Sputum Sputum Culture - Preliminary 12/22/19 20:00 Stool Culture - Final Stool 12/23/19 04:25 Blood Culture - Preliminary Blood No Growth after 72 hours 12/22/19 00:02 Blood Culture Gram Stain - Final Blood Blood Culture - Final Escherichia coli Citrobacter koseri Assessment and Plan Assessment: Impression: Acute hypoxic respiratory failure secondary to sepsis, septic shock, and suspect acute diastolic congestive heart failure. With acute kidney injury. Gram-negative sepsis and bacteremia, secondary to E. coli and Citrobacter koseri. Possible GI source. Or hepatobiliary source Acute kidney injury secondary to sepsis and septic shock. Pancytopenia, secondary to recent chemotherapy. Possible right lower lobe pneumonia, gram-negative unless proven otherwise considering the patient is immunocompromised. 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 Initially diagnosed in 2006, Chronic obstructive pulmonary disease, presently inactive. Acute on chronic hypoxic respiratory failure, secondary to COPD, pneumonia, and sepsis, and acute diastolic congestive heart failure. History of malignant melanoma left cheek. Onset 01/27/2019. GERD without esophagitis. Type 2 diabetes. Benign essential hypertension. Acute colitis, could also be the primary source of her bacteremia. Abnormal hepatobiliary scan, however patient is not a surgical candidate at this point in spite of the abnormality noted on the hepatobiliary scan. Could be the source of her gram-negative sepsis and bacteremia, but the patient is not a great surgical candidate at this point she is definitely unstable for surgery. Recommendation: Cut down her IV fluid to KVO. Start Lasix drip at 10 mg per hour. Continue cefepime for her gram-negative sepsis and bacteremia. Enteral feeding/to be started slowly. GI and DVT prophylaxis. Continue norepinephrine and titrate accordingly. Keep MAPS above 65. Start sodium bicarb drip. Nephrology cc 4 acute kidney injury, she may eventually require hemodialysis. Prognosis is definitely guarded. And the patient is obviously critically ill. Critical care time is 35 minutes We'll continue to follow Time with Patient: Greater than 30
[2019-12-26] MEDS ORDERED: SODIUM CHLORIDE 0.9% 50 ML with VASOPRESSIN 20 UNIT IVPB SCH ×4 (11:45→13:12)
[2019-12-26 12:15] LABS: ABG Base Excess -16.1 mmol/L; ABG HCO3 13 mmol/L (21-25); ABG Oxygen Saturation 91.8 % (94-97); ABG PCO2 40 mmHg (35-45); ABG PO2 70 mmHg (83-108); ABG TCO2 14 mmol/L (19-24); Allen Test Performed? Yes
[2019-12-26 12:25] LABS: ABG PH 7.12 (7.35-7.45)
--- NOTE | 2019-12-26 12:34 | P.GSCN ---
History of Present Illness Consult date: 12/26/19 History of present illness: CHIEF COMPLAINT: Chronic cholecystitis HISTORY OF PRESENT ILLNESS: The patient is a 69 year old female in the intensive care unit on full ventilatory support including pressors who presented to the hospital less than 1 week ago secondary to neutropenic fevers. Her history is significant for non-small cell lung cancer risk recurrence. She has been undergoing chemoradiation therapy. Second to her fevers present emergency room. During her hospital course, patient became vent dependent respiratory failure and has been in the ICU on full ventilatory support. Fever workup thus for include CT of the abdomen and pelvis including HIDA scan which came back positive for decreased ejection fraction. As a result of her normal HIDA scan, general surgery is consulted for source of infection being the gallbladder. PAST MEDICAL HISTORY: See list and reviewed PAST SURGICAL HISTORY: See list and reviewed MEDICATIONS: See list and reviewed ALLERGIES: See list and reviewed SOCIAL HISTORY: See list and reviewed FAMILY HISTORY: See list and reviewed REVIEW OF ORGAN SYSTEMS: Unobtainable due to patient's ventilatory status and sedated. PHYSICAL EXAM: VITALS: Reviewed CONSTITUTIONAL: Well developed and in no acute distress. EYES: Conjuctivae without sclera icterus. Pupils are equally round and reactive to light. HEAD, EARS, NOSE, THROAT: Moist buccal mucosa. Head is atraumatic, normocephalic. NECK: Supple. RESPIRATORY: On mechanical ventilation with sedation CARDIOVASCULAR: Tachycardic. Palpable 2+ radial pulses. ABDOMEN: Soft. No peritonitis. Protuberant. MUSCULOSKELETAL: Nail and fingers with good capillary refill. SKIN: Warm and well perfused with good skin turgor. NEUROLOGIC: Patient sedated on ventilatory support PSYCH: Patient sedated on ventilatory support CLINCAL LABS: Reviewed. WBC low 0.4. Hemoglobin 9.3. Platelets 82 and up from 40 IMAGING: Independently reviewed a CT of the abdomen and pelvis confirms dilated gallbladder with gallstones. Intra-abdominal ascites noted. No free air. This is my independent interpretation. Inflammation of ascending colon including at proximal descending colon. Ultrasound of the gallbladder also independently reviewed with gallstones identified. HIDA scan also independently reviewed demonstrating presence of tracer without findings of acute cholecystitis RADIOLOGY: Report reviewed of HIDA scan confirms ejection fraction of 16%. CT of the abdomen and pelvis confirms inflammation of the ascending colon. ASSESSMENT: 1. Febrile neutropenia 2. Non-small cell lung carcinoma with recurrent 3. Vent dependent respiratory failure PLAN: 1. Patient has low point of white blood cell count including initial thrombocytopenia secondary to recent chemotherapy. 2. In light of her multiple medical comorbidities including recent chemothera py, thrombocytopenia, vent dependent respiratory failure, pressors, and recent HIDA scan that confirms no acute cholecystitis, no acute surgical intervention recommended as patient is too high risk for surgery at this time. 3. Recommend antibiotic management to address biliary dyskinesia as gallbladder function still present and for colitis Thank you for this kind consultation. Past Medical History Past Medical History: Cancer, COPD, Diabetes Mellitus Additional Past Medical History / Comment(s): lung CA X2 with chemo therapy and radiation. History of Any Multi-Drug Resistant Organisms: None Reported Past Surgical History: Bladder Surgery, Hernia Repair, Tonsillectomy, Tubal Ligation Additional Past Surgical History / Comment(s): Bladder suspension, abdominal hernia repair, colonoscopy. Past Anesthesia/Blood Transfusion Reactions: No Reported Reaction Additional Past Anesthesia/Blood Transfusion Reaction / Comm: blood transfusion 2005 Smoking Status: Former smoker - Past Family History Father Family Medical History: Cancer Additional Family Medical History / Comment(s): lung cancer father and brother, daughter breast and ovarian CA Brother(s) Family Medical History: Cancer Additional Family Medical History / Comment(s): 2 brothers with lung cancer. Daughter(s) Family Medical History: Cancer Additional Family Medical History / Comment(s): . Breast/ovarian canc ers. Medications and Allergies Home Medications Medication Instructions Recorded Confirmed Type Albuterol Inhaler (Mhu) [Ventolin 2 puff INHALATION RT-Q6H PRN 12/19/16 12/22/19 History Hfa Inhaler] Albuterol Nebulized [Ventolin 2.5 mg INHALATION RT-Q4H 12/19/16 12/22/19 History Nebulized] Atenolol [Tenormin] 25 mg PO BID 12/19/16 12/22/19 History Loratadine [Claritin] 10 mg PO HS 12/19/16 12/22/19 History Potassium Gluconate 99 mg PO BID 12/19/16 12/22/19 History Spironolactone [Aldactone] 25 mg PO DAILY 12/19/16 12/22/19 History Acetaminophen Tab [Tylenol Tab] 500 - 1,000 mg PO QID PRN 12/22/19 12/22/19 History Dronabinol [Marinol] 5 mg PO HS 12/22/19 12/22/19 History Fluconazole 200 mg PO DAILY 12/22/19 12/22/19 History Fluticasone/Vilanterol [Breo 1 puff INHALATION RT-DAILY 12/22/19 12/22/19 History Ellipta 200-25 Mcg INH] Prochlorperazine [Compazine] 10 mg PO Q6H PRN 12/22/19 12/22/19 History Torsemide [Demadex] 20 mg PO DAILY 12/22/19 12/22/19 History Vitamin D3(Unknown) 1 tab PO BID 12/22/19 12/22/19 History Allergies Allergy/AdvReac Type Severity Reaction Status Date / Time guaifenesin [From Mucinex] AdvReac Nausea & Verified 12/22/19 08:20 Vomiting Sulfa (Sulfonamide AdvReac headache Verified 12/22/19 08:20 Antibiotics) Surgical - Exam Vital Signs Temp Pulse Resp BP Pulse Ox 101.9 F H 120 H 30 H 102/60 83 L 12/21/19 23:11 12/21/19 23:11 12/21/19 23:11 12/21/19 23:11 12/21/19 23:11 Results - Labs 12/26/19 04:05 12/26/19 04:05 Abnormal Lab Results - Last 24 Hours (Table) 12/25/19 12/25/19 12/26/19 Range/Units 12:16 18:21 00:05 WBC (3.8-10.6) k/uL RBC (3.80-5.40) m/uL Hgb (11.4-16.0) gm/dL Hct (34.0-46.0) % Plt Count (150-450) k/uL ABG pH (7.35-7.45) ABG pO2 (83-108) mmHg ABG HCO3 (21-25) mmol/L ABG Total CO2 (19-24) mmol/L Sodium (137-145) mmol/L Chloride (98-107) mmol/L Carbon Dioxide (22-30) mmol/L BUN (7-17) mg/dL Creatinine (0.52-1.04) mg/dL Glucose (74-99) mg/dL POC Glucose (mg/dL) 191 H 205 H 196 H (75-99) mg/dL Calcium (8.4-10.2) mg/dL 12/26/19 12/26/19 12/26/19 Range/Units 04:05 04:05 06:10 WBC 0.4 L* (3.8-10.6) k/uL RBC 2.92 L (3.80-5.40) m/uL Hgb 9.3 L (11.4-16.0) gm/dL Hct 28.8 L (34.0-46.0) % Plt Count 82 L (150-450) k/uL ABG pH (7.35-7.45) ABG pO2 (83-108) mmHg ABG HCO3 (21-25) mmol/L ABG Total CO2 (19-24) mmol/L Sodium 135 L (137-145) mmol/L Chloride 111 H (98-107) mmol/L Carbon Dioxide 13 L (22-30) mmol/L BUN 50 H (7-17) mg/dL Creatinine 2.21 H (0.52-1.04) mg/dL Glucose 162 H (74-99) mg/dL POC Glucose (mg/dL) 160 H (75-99) mg/dL Calcium 7.1 L (8.4-10.2) mg/dL 12/26/19 Range/Units 07:35 WBC (3.8-10.6) k/uL RBC (3.80-5.40) m/uL Hgb (11.4-16.0) gm/dL Hct (34.0-46.0) % Plt Count (150-450) k/uL ABG pH 7.19 L* (7.35-7.45) ABG pO2 81 L (83-108) mmHg ABG HCO3 14 L (21-25) mmol/L ABG Total CO2 15 L (19-24) mmol/L Sodium (137-145) mmol/L Chloride (98-107) mmol/L Carbon Dioxide (22-30) mmol/L BUN (7-17) mg/dL Creatinine (0.52-1.04) mg/dL Glucose (74-99) mg/dL POC Glucose (mg/dL) (75-99) mg/dL Calcium (8.4-10.2) mg/dL Microbiology - Last 24 Hours (Table) 12/25/19 11:23 Gram Stain - Preliminary Sputum Sputum Culture - Preliminary 12/22/19 20:00 Stool Culture - Final Stool 12/23/19 04:25 Blood Culture - Preliminary Blood No Growth after 72 hours 12/22/19 00:02 Blood Culture Gram Stain - Final Blood Blood Culture - Final Escherichia coli Citrobacter koseri Diabetes panel 12/26/19 Range/Units 04:05 Sodium 135 L (137-145) mmol/L Potassium 4.2 (3.5-5.1) mmol/L Chloride 111 H (98-107) mmol/L Carbon Dioxide 13 L (22-30) mmol/L BUN 50 H (7-17) mg/dL Creatinine 2.21 H (0.52-1.04) mg/dL Glucose 162 H (74-99) mg/dL Calcium 7.1 L (8.4-10.2) mg/dL Calcium panel 12/26/19 Range/Units 04:05 Calcium 7.1 L (8.4-10.2) mg/dL Pituitary panel 12/26/19 Range/Units 04:05 Sodium 135 L (137-145) mmol/L Potassium 4.2 (3.5-5.1) mmol/L Chloride 111 H (98-107) mmol/L Carbon Dioxide 13 L (22-30) mmol/L BUN 50 H (7-17) mg/dL Creatinine 2.21 H (0.52-1.04) mg/dL Glucose 162 H (74-99) mg/dL Calcium 7.1 L (8.4-10.2) mg/dL Adrenal panel 12/26/19 Range/Units 04:05 Sodium 135 L (137-145) mmol/L Potassium 4.2 (3.5-5.1) mmol/L Chloride 111 H (98-107) mmol/L Carbon Dioxide 13 L (22-30) mmol/L BUN 50 H (7-17) mg/dL Creatinine 2.21 H (0.52-1.04) mg/dL Glucose 162 H (74-99) mg/dL Calcium 7.1 L (8.4-10.2) mg/dL Assessment and Plan (1) Chronic respiratory failure requiring continuous mechanical ventilation through tracheostomy Current Visit: Yes Status: Acute Code(s): J96.10 - CHRONIC RESPIRATORY FAILURE, UNSP W HYPOXIA OR HYPERCAPNIA; Z93.0 - TRACHEOSTOMY STATUS; Z99.11 - DEPENDENCE ON RESPIRATOR [VENTILATOR] STATUS SNOMED Code(s): 35591614 (2) Acute exacerbation of chronic obstructive pulmonary disease Current Visit: Yes Status: Acute Code(s): J44.1 - CHRONIC OBSTRUCTIVE PULMONARY DISEASE W (ACUTE) EXACERBATION SNOMED Code(s): 586365464 (3) Febrile neutropenia Current Visit: Yes Status: Acute Code(s): D70.9 - NEUTROPENIA, UNSPECIFIED; R50.81 - FEVER PRESENTING WITH CONDITIONS CLASSIFIED ELSEWHERE SNOMED Code(s): 589153302 (4) Neutropenic fever Current Visit: Yes Status: Acute Priority: High Code(s): D70.9 - NEUTROPENIA, UNSPECIFIED; R50.81 - FEVER PRESENTING WITH CONDITIONS CLASSIFIED ELSEWHERE SNOMED Code(s): 782197111 (5) Neutropenic typhlitis Current Visit: Yes Status: Acute Priority: High Code(s): K36 - OTHER APPENDICITIS SNOMED Code(s): 4084845 (6) Pancytopenia due to antineoplastic chemotherapy Current Visit: Yes Status: Acute Priority: High Code(s): D61.810 - ANTINEOPLASTIC CHEMOTHERAPY INDUCED PANCYTOPENIA; T45.1X5A - ADVERSE EFFECT OF ANTINEOPLASTIC AND IMMUNOSUP DRUGS, INIT SNOMED Code(s): 204672287643155
[2019-12-26 12:49] LABS: Glucose,Whole Blood 107 mg/dL (75-99)
--- NOTE | 2019-12-26 15:39 | P.PN ---
Subjective Progress Note Date: 12/26/19 The patient remains on the ventilator. Shee is on high doses of pressors. Urine output is minimal. Objective - Vital Signs Vital signs: Vital Signs Temp 98.3 F 12/26/19 12:00 Pulse 98 12/26/19 15:12 Resp 20 12/26/19 15:00 BP 116/60 12/26/19 08:45 Pulse Ox 90 L 12/26/19 15:00 Intake & Output 12/25/19 12/26/19 12/26/19 18:59 06:59 18:59 Intake Total 2329.703 1447.111 923.319 Output Total 110 45 5 Balance 2219.703 1402.111 918.319 Weight 107.2 kg 107.2 kg Intake: IV 515 328 791 Dextrose 5% in Water 1, 700 000 ml @ 100 mls/hr IV . [id number] [facility] with Sodium Bicarb (1 Meq/ml) 150 ml Rx#:[id number] Dextrose 5%-0.9% NaCl 1, 515 295 40 000 ml @ 20 mls/hr IV . Q24H [facility] Rx#:[id number] pressure bag 33 51 Intake, IV Titration 3845.439 1986.111 132.319 Amount Diltiazem 125 mg In 0 Sodium Chloride 0.9% 100 ml @ 5 MG/HR 5 mls/hr IV .Q24H [facility] Rx#:[id number] Furosemide 100 mg In 22.333 Sodium Chloride 0.9% 90 ml @ 10 MG/HR 10 mls/hr IV .Q10H [facility] Rx#: [id number] Norepinephrine 32 mg In 152.228 48.737 Sodium Chloride 0.9% 218 ml @ 0.05 MCG/KG/MIN 2. 391 mls/hr IV .Q24H [facility] Rx#:[id number] Norepinephrine 4 mg In 328.302 Sodium Chloride 0.9% 250 ml @ 0.05 MCG/KG/MIN 18. 955 mls/hr IV .[id number] [facility] Rx#:[id number] Norepinephrine 8 mg In 426.221 466.883 Sodium Chloride 0.9% 250 ml @ 0.33 MCG/KG/MIN 65. 132 mls/hr IV .Q3H58M [facility] Rx#:[id number] Propofol 1,000 mg In 60.18 200 61.249 Empty Bag 1 bag @ Titrate IV .Q0M [facility] Rx#: [id number] Sodium Chloride 0.9% 1, 1000 300 000 ml @ 999 mls/hr IV . Q1H1M [facility] Rx#:[id number] Output: Urine 110 45 5 Other: Voiding Method Indwelling Catheter Indwelling Catheter Indwelling Catheter ABP, PAP, CO, CI - Last Documented Arterial Blood Pressure 91/36 - Constitutional Constitutional Comment(s): Sedated on ventilator - Respiratory Respiratory: bilateral: diminished - Cardiovascular Rhythm: regular Heart sounds: normal: S1, S2 - Gastrointestinal General gastrointestinal: Present: decreased bowel sounds, soft - Integumentary Integumentary: Present: normal - Neurologic Neurologic Comment(s): Sedated on vent - Musculoskeletal Musculoskeletal: Present: generalized weakness - Labs CBC & Chem 7: 12/26/19 04:05 12/26/19 04:05 Labs: Abnormal Lab Results - Last 24 Hours (Table) 12/25/19 12/26/19 12/26/19 Range/Units 18:21 00:05 04:05 WBC 0.4 L* (3.8-10.6) k/uL RBC 2.92 L (3.80-5.40) m/uL Hgb 9.3 L (11.4-16.0) gm/dL Hct 28.8 L (34.0-46.0) % Plt Count 82 L (150-450) k/uL ABG pH (7.35-7.45) ABG pO2 (83-108) mmHg ABG HCO3 (21-25) mmol/L ABG Total CO2 (19-24) mmol/L ABG O2 Saturation (94-97) % Sodium (137-145) mmol/L Chloride (98-107) mmol/L Carbon Dioxide (22-30) mmol/L BUN (7-17) mg/dL Creatinine (0.52-1.04) mg/dL Glucose (74-99) mg/dL POC Glucose (mg/dL) 205 H 196 H (75-99) mg/dL Calcium (8.4-10.2) mg/dL 12/26/19 12/26/19 12/26/19 Range/Units 04:05 06:10 07:35 WBC (3.8-10.6) k/uL RBC (3.80-5.40) m/uL Hgb (11.4-16.0) gm/dL Hct (34.0-46.0) % Plt Count (150-450) k/uL ABG pH 7.19 L* (7.35-7.45) ABG pO2 81 L (83-108) mmHg ABG HCO3 14 L (21-25) mmol/L ABG Total CO2 15 L (19-24) mmol/L ABG O2 Saturation (94-97) % Sodium 135 L (137-145) mmol/L Chloride 111 H (98-107) mmol/L Carbon Dioxide 13 L (22-30) mmol/L BUN 50 H (7-17) mg/dL Creatinine 2.21 H (0.52-1.04) mg/dL Glucose 162 H (74-99) mg/dL POC Glucose (mg/dL) 160 H (75-99) mg/dL Calcium 7.1 L (8.4-10.2) mg/dL 12/26/19 12/26/19 Range/Units 12:13 12:35 WBC (3.8-10.6) k/uL RBC (3.80-5.40) m/uL Hgb (11.4-16.0) gm/dL Hct (34.0-46.0) % Plt Count (150-450) k/uL ABG pH 7.12 L* (7.35-7.45) ABG pO2 70 L (83-108) mmHg ABG HCO3 13 L (21-25) mmol/L ABG Total CO2 14 L (19-24) mmol/L ABG O2 Saturation 91.8 L (94-97) % Sodium (137-145) mmol/L Chloride (98-107) mmol/L Carbon Dioxide (22-30) mmol/L BUN (7-17) mg/dL Creatinine (0.52-1.04) mg/dL Glucose (74-99) mg/dL POC Glucose (mg/dL) 107 H (75-99) mg/dL Calcium (8.4-10.2) mg/dL Microbiology - Last 24 Hours (Table) 12/25/19 11:23 Gram Stain - Preliminary Sputum Sputum Culture - Preliminary Gram Neg Bacilli 12/22/19 20:00 Stool Culture - Final Stool 12/23/19 04:25 Blood Culture - Preliminary Blood No Growth after 72 hours Assessment and Plan (1) Febrile neutropenia Narrative/Plan: Patient's fever pattern is improved. Neutropenia persists with WBC 0.4 today. There is no benefit of additional G-CSF until 12/29/19 as the patient received Neulasta on 12/19/19. Continue broad-spectrum IV antibiotics. Continue aggressive supportive care Source is felt to be most likely neutropenic colitis Current Visit: Yes Status: Acute Code(s): D70.9 - NEUTROPENIA, UNSPECIFIED; R50.81 - FEVER PRESENTING WITH CONDITIONS CLASSIFIED ELSEWHERE SNOMED Code(s): 326847890 (2) Gram-negative bacteremia Narrative/Plan: As above. Repeat blood cultures are negative. Source is likely neutropenic bowel inflammation Current Visit: Yes Status: Acute Code(s): R78.81 - BACTEREMIA SNOMED Code(s): 173849725762 (3) Neutropenic typhlitis Narrative/Plan: As above. Bowel rest in addition till WBC recovery Current Visit: Yes Status: Acute Priority: High Code(s): K36 - OTHER APPENDICITIS SNOMED Code(s): 1482430 (4) Sepsis Narrative/Plan: The patient condition is extremely to let this time, with her requiring high level of PEEP, and high doses of pressors. Urine output has decreased significantly. The situation was discussed in detail with her family was at the bedside. They were advised that the patient is likely to start improving significantly only when her WBC recovers. That may take another 2-3 days at least. In that time, even with very aggressive supportive care with antibiotics , ventilator support, and pressors as his ongoing currently, it is possible that the patient may still deteriorate further. - Continue current aggressive management - They were advised that if the patient were to deteriorate further despite current aggressive management, then it would be most appropriate to consider DO NOT RESUSCITATE in that situation. Patient status was changed to DO NOT RESUS CITATE. If the patient is able to be supported and her WBC recovers, then she would have a much better chance of improvement Current Visit: Yes Status: Acute Code(s): A41.9 - SEPSIS, UNSPECIFIED ORGANISM SNOMED Code(s): 30130876 (5) Pancytopenia due to antineoplastic chemotherapy Narrative/Plan: Status post Neulasta. WBC and platelets are currently in a safe range. Continue to monitor with additional transfusion support as needed Current Visit: Yes Status: Acute Priority: High Code(s): D61.810 - ANTINEOPLASTIC CHEMOTHERAPY INDUCED PANCYTOPENIA; T45.1X5A - ADVERSE EFFECT OF ANTINEOPLASTIC AND IMMUNOSUP DRUGS, INIT SNOMED Code(s): 913097943537995
[2019-12-26 15:51] LABS: ABG Base Excess -16.3 mmol/L; ABG HCO3 13 mmol/L (21-25); ABG Oxygen Saturation 90.5 % (94-97); ABG PCO2 41 mmHg (35-45); ABG PO2 67 mmHg (83-108); ABG TCO2 14 mmol/L (19-24); Allen Test Performed? Yes
[2019-12-26 15:54] LABS: ABG PH 7.11 (7.35-7.45)
[2019-12-26] MEDS ORDERED: fentaNYL (PF) 1,000 MCG in SODIUM CHLORIDE 0.9% 80 ML IV SCH (16:15)
[2019-12-26 16:21] VITALS: TEMP 98.2
--- NOTE | 2019-12-26 17:24 | PN ---
PROGRESS NOTE DATE OF SERVICE: 12/26/2019 REASON FOR FOLLOWUP: Gram-negative sepsis. INTERVAL HISTORY: Patient is currently afebrile. However, the patient is requiring maximum pressor support. Currently requiring vasopressor and high dose of Levophed. Blood pressure is marginal. FiO2 is up to 100%. No significant purulent secretions thru the ET or diarrhea has been reported. On examination, blood pressure 100/36, pulse of 98, temperature is 98.3. She is 90% on 100% FiO2. General description is an elderly female intubated on the vent. Respiratory system: Unlabored breathing with decreased breath sounds in the base. No wheeze. Heart S1, S2. Regular rate and rhythm. Abdomen: Soft, mildly distended. No guarding or rigidity. EXTREMITIES: No edema of the feet. LABS: Hemoglobin 9.1, white count 0.4, BUN of 50, creatinine is 2.21. DIAGNOSTIC IMPRESSION AND PLAN: Patient with neutropenic sepsis, gram-negative in this patient blood cultures positive for E coli and Citrobacter with concern for possible gallbladder disease. The patient is covered with cefepime despite worsening, we will add Dapto for gram-positive coverage. Vancomycin could not be given because of her borderline kidney function. However, overall prognosis remains to be very guarded. Family at the bedside, questions answered. MMODL / IJN: [id number] /
[2019-12-26] MEDS ORDERED: HYDROCORTISONE SUCCINATE 100 MG/2 ML VIAL IV STA (17:42)
[2019-12-26 18:41] LABS: Glucose,Whole Blood 42 mg/dL (75-99)
[2019-12-26] MEDS ORDERED: DEXTROSE 50% SYRINGE 50 ML IVP ONE (18:41)
[2019-12-26 18:58] LABS: Glucose,Whole Blood 159 mg/dL (75-99)
[2019-12-27 02:05] VITALS: PULSE 0; RESP 0
--- NOTE | 2019-12-27 08:17 | P.DS ---
Providers Date of admission: 12/22/19 02:56 Attending physician: Dimitrios Gavirai Consults: 12/22/19 03:10 Consult Physician Routine Consulting Provider: Juma Carrington Consult Reason/Comments: known Do you want consulting provider notified?: Yes Consult Physician Urgent Consulting Provider: Armando Urrutia Consult Reason/Comments: known Do you want consulting provider notified?: Yes 12/22/19 10:09 Consult Physician Routine Consulting Provider: Stepan Barrera Consult Reason/Comments: neutropenic fever Do you want consulting provider notified?: Yes 12/23/19 13:52 Consult Physician Routine Consulting Provider: Antonio Deras Consult Reason/Comments: AFib RVR Do you want consulting provider notified?: Yes 12/25/19 12:47 Consult Physician Urgent Consulting Provider: Brant Tristan Consult Reason/Comments: chronic cholecystitis and possible source of infection Do you want consulting provider notified?: Yes 12/25/19 14:22 Consult Physician Urgent Consulting Provider: Maria C Dillon Consult Reason/Comments: low urine output Do you want consulting provider notified?: Yes Primary care physician: Chuck Mariscal [facility] Course: Diagnoses: Septic shock secondary to pneumonia, E coli septicemia, possible course including the urine, gallbladder or colitis Febrile neutropenia Sepsis Secondary to pneumonia, bilateral left and right lower lobe pneumonia with pleural effusion Nonspecific colitis A. fib with RVR Acute kidney injury Dilated and hydrops gallbladder, rule out cholecystitis, which could be the source of E. coli septicemia elevated lactic acid Hyponatremia, hypovolemic Electrolyte abnormality with hypomagnesemia Dilated gallbladder, suspicious for gallbladder dysfunction or cholecystitis, however ultrasound showing no gallbladder thickening Lung cancer status post chemoradiotherapy Diabetes mellitus COPD Hospital course: This is a pleasant 69 years old female with past medical history of COPD, diabetes mellitus, lung cancer status post chemoradiotherapy. Patient presents with dyspnea and chest pain with fever, malaise of 1-2 days duration. Also patient complaining of from diarrhea abdominal pain, nausea vomiting. Patient states although she is dyspneic but thus close to her baseline as per patient states, she uses oxygen 2-3 L at home but no steroid dependent and she sees Dr. Urrutia in the outpatient setting. However over the last 2-3 days patient was not eating well with decreased appetite she didn't vomit Seferino she came to the hospital but she has significant diarrhea about 5-6 times per day which is watery no blood noted. She checked her temperature at home was 100.5 so her daughter make her call the office of Dr. garber who instructed her to come to emergency room. She has some coughing. Also shows some abdominal distention. Patient has not voided says yesterday had Solares catheter was inserted in the emergency room. she follow up with Dr. Valladares for her chemotherapy and last dose of the chemotherapy was last Sunday on 12/18 She is tachycardic with heart rate 108/112, blood pressure 102/41, she had a fever of 101.9. Left Angelica Mikki 0.1K, M [place] 0.5 and platelets 90 2K. INR is 1.3, d-dimer is 2.3 elevated lactic acid 3.7, 4.1 and 5.8, sodium is low as 129, potassium n chest x-ray: ormal 4.8, magnesium of 1.1, creatinine 1.06 which is mildly elevated. Tenderness is high at 576, AST 38, LDH is 785, troponin 0.013, serum protein is 176 which is high blood culture has been sent Chest x-ray showing right pleural effusion and right lower lobe infiltrate slightly increased, possible mass at the left pulmonary hilum. Chest CTA is negative for PE and there is masslike adenopathy of the left pulmonary hilum with lymph nodes that measure up to 3 cm, there isn't currently taking infiltrate in the left lower lobe Gallbladder ultrasound: Numerous gallstones, no significant gallbladder wall thickening EKG showing sinus tachycardia at 1:30, no significant ST-T changes, QTC is 470 In the emergency room patient received IV fluids, started on Zithromax, vancomycin, cefepime. Patient also on D5 normal saline at 100 mL per hour Infectious place was well for oncologist and infectious disease specialist 12/23/2019 Patient remains in the ICU, she still dyspneic have difficulty talking, she has a difficult for the phlegm but no chest pain. She vomited all her medicines and foods she took. She still complaining of from abdominal pain and tenderness all over especially in the left lower quadrant and also on the right side. She still have diarrhea. She has low-grade temperature today of 100.9. She is saturating 97% on 4 L oxygen nasal cannula, blood pressure 112/50 and she is tachypneic. CBC is still showing pancytopenia of WBCs 0.1K, hemoglobin 8.9 and platelets 40 K, subcu heparin was held. Sodium 132, creatinine 1.1, sugar is controlled, magnesium 1.7, proBNP is 1660, Echocardiogram: Ejection fraction 6065% with LVH, patient went into A. fib today with RVR at the rate 150, started on Cardizem drip at 5 mg per hour, no need for heparin drip for thrombocytopenia, consult microstrategy architect developer, patient already C Dr. Rangel as an outpatient for abnormal heartbeat. C. diff test is negative. Cholesterol studies are pending. She has CT of the abdomen and pelvis showing right pneumonia and pleural effusion, colitis in the ascending colon and cecum and hydrops gallbladder with cirrhosis, HIDA scan is ordered Blood cultures positive for E. coli and patient is already on cefepime and vancomycin. 12/24/2019 Patient ICU, awake but looks tired, she still somewhat dyspneic, she had use by BiPAP but last night, she saturating 94 L oxygen via nasal cannula. No chest pain Patient had the tibial vomiting last night, however her diarrhea was stopped. She still complaining of from RUQ pain and tenderness. HIDA scan for gallbladder functionality is pending. Still Solares catheter in place. Blood pressure is 99/66, heart rate 89. That's still showing pancytopenia which looks similar to yesterday. Creatinine 1.0, sodium 133, sugar 255. She is on D5 normal saline at 100 mL per hour, we'll order that this referral millimeter per hour. Cardizem drip was stopped this morning. And she was started on atenolol 25 mg daily and digoxin to 50 g daily. She is on cefepime for E. coli septicemia. 12/25/2019 Patient ICU, she refuses the BiPAP last night and she got into more respiratory distress consultant rn she got intubated also she was placed on small dose of levophed 0.36, Creatinine is up to 3.6, WBC 0.2K, hemoglobin 8.9, platelet 97, because of which will resume the patient on subcutaneous heparin. Creatinine up to 1.65, sodium 133, specimens normal Procalcitonin is increased to 8.99, [place] [address]. Blood culture is growing E. coli and Citrobacter. Vancomycin was discontinued and continue with cefepime HIDA scan: Chronic cholecystitis or biliary dyskinesia, consult surgery team Patient remains critically L 12/26/2019 Patient remains in the ICU, she is intubated and sedated. She is saturating 93% on FiO2 of 45%. However blood gas this morning showing significant acidosis of 7.19, pO2 is low at 81 and, and pCO2 was within normal at 37. Patient was placed on bicarbonate drip. Her creatinine went up to 2.2 and she is becoming anuric renal failure as she is making only 50 mL of urine overnight. Customer Support Analyst consulted Abdomen exam is benign. Labs show WBC 0.4K, hemoglobin 9.3 and platelet 82. Elevated creatinine 2.2 sodium 135, sugar controlled. ProBNP is 17,600 She has positive blood culture for E. coli and Citrobacter, ID team on the case and currently she is on cefepime. D5 normal sinus stopped and she is currently on bicarbonate drip. She is on subcu heparin Patient remains in critical condition despite medical therapy with broad-spectru m antibiotics, fluids, pressors and followed by many consultants, she remained in the ICU on pressors and vent and an deteriorated gradually and she on 12/25 at 20:50 Please refer to nursing note for more details Patient Condition at Discharge: Serious Plan - Discharge Summary Discharge Rx Participant: No New Discharge Prescriptions: No Action Albuterol Nebulized [Ventolin Nebulized] 2.5 mg INHALATION RT-Q4H Albuterol Inhaler (Mhu) [Ventolin Hfa Inhaler] 2 puff INHALATION RT-Q6H PRN PRN Reason: Shortness Of Breath Spironolactone [Aldactone] 25 mg PO DAILY Loratadine [Claritin] 10 mg PO HS Atenolol [Tenormin] 25 mg PO BID Potassium Gluconate 99 mg PO BID Vitamin D3(Unknown) 1 tab PO BID Acetaminophen Tab [Tylenol Tab] 500 - 1,000 mg PO QID PRN PRN Reason: Pain Torsemide [Demadex] 20 mg PO DAILY Prochlorperazine [Compazine] 10 mg PO Q6H PRN PRN Reason: Nausea Fluticasone/Vilanterol [Breo Ellipta 200-25 Mcg INH] 1 puff INHALATION RT- DAILY Fluconazole 200 mg PO DAILY Dronabinol [Marinol] 5 mg PO HS Discharge Medication List Albuterol Inhaler (Mhu) [Ventolin Hfa Inhaler] 2 puff INHALATION RT-Q6H PRN 12/19/16 [History] Albuterol Nebulized [Ventolin Nebulized] 2.5 mg INHALATION RT-Q4H 12/19/16 [History] Atenolol [Tenormin] 25 mg PO BID 12/19/16 [History] Loratadine [Claritin] 10 mg PO HS 12/19/16 [History] Potassium Gluconate 99 mg PO BID 12/19/16 [History] Spironolactone [Aldactone] 25 mg PO DAILY 12/19/16 [History] Acetaminophen Tab [Tylenol Tab] 500 - 1,000 mg PO QID PRN 12/22/19 [History] Dronabinol [Marinol] 5 mg PO HS 12/22/19 [History] Fluconazole 200 mg PO DAILY 12/22/19 [History] Fluticasone/Vilanterol [Breo Ellipta 200-25 Mcg INH] 1 puff INHALATION RT-DAILY 12/22/19 [History] Prochlorperazine [Compazine] 10 mg PO Q6H PRN 12/22/19 [History] Torsemide [Demadex] 20 mg PO DAILY 12/22/19 [History] Vitamin D3(Unknown) 1 tab PO BID 12/22/19 [History] Follow up Appointment(s)/Referral(s): Chuck Marsical MD [Primary Care Provider] - 1-2 days Activity/Diet/Wound Care/Special Instructions: pts palliative score is 5 Discharge Disposition: - Preliminary Cause of Preliminary Cause of : septic shock
[2019-12-27 09:00] LABS: ABG PH 7.17 (7.35-7.45)
[2019-12-27] MEDS ORDERED: CEFEPIME 2 GM in SODIUM CHLORIDE 0.9% 100 ML IVPB SCH (09:00)
--- NOTE | 2019-12-29 15:15 | CDI ---
Documentation Clarification Form Date: 12/29/19 From: Mitzi Givens/Vilma Phone: If you have a question about this query, please contact Elisha Hamilton, Marketing Program Coordinator at [phone] between 8am and 5pm. Admit Date: 12/22/19 Discharge Date:12/26/19 Patient Name: Ino Tinsley Visit Number: [id number] ATTENTION: The Clinical Documentation Specialists (CDI) and [facility] Coding Staff appreciate your assistance in clarifying documentation. Please respond to the clarification below the line at the bottom and electronically sign. The CDI & [facility] Coding staff will review the response and follow-up if needed. Please note: Queries are made part of the Legal Health Record. If you have any questions, please contact the author of this message via ITS. Dear Dr. Kerns Septicemia possible source including the urine, gallbladder or colitis was documented in the discharge summary. History/Risk Factors: Sepsis, pneumonia, colitis, septic shock Clinical Indicators: Dr. Love documents - urinalysis seems to be relatively unremarkable except for pyuria and bacteruria Vital Signs: T. 101.9, P. 120, R. 30, BP 102/60 WBC: 0.1 Urinalysis: Leukocyte esterase small, WBC 6 bacteria many, RBC 2, Epithelial cells 5 Urine Culture: Not cultured Treatment: Patient receive IV Cefepime, IV Vanco Please clarify status of UTI based on clinical picture. UTI - confirmed UTI- possible UTI ruled out -Contaminated specimen Other, please specify Unable to determine no UTI MTDD
== END 2019-12-26 20:50 | disposition expired | DRG 871 ==
LOC: EC 23:10 → 5NMEDONC 12-22 02:56 → 2SICU 12-22 12:23
PROVIDERS: ADMIT Hospitalist; ATTEND Hospitalist
PROC: 0BH17EZ Insertion of Endotracheal Airway into Trachea, Via Natural or Artificial Opening (ICD-10-PCS; principal; 2019-12-25)
PROC: 5A1945Z Respiratory Ventilation, 24-96 Consecutive Hours (ICD-10-PCS; principal; 2019-12-25)
PROC: 3E033XZ Introduction of Vasopressor into Peripheral Vein, Percutaneous Approach (ICD-10-PCS; 2019-12-25)
PROC: 03HB33Z Insertion of Infusion Device into Right Radial Artery, Percutaneous Approach (ICD-10-PCS; 2019-12-25)
PROC: 05H533Z Insertion of Infusion Device into Right Subclavian Vein, Percutaneous Approach (ICD-10-PCS; 2019-12-25)
DX: A41.51 Sepsis due to Escherichia coli [E. coli] (principal); D61.810 Antineoplastic chemotherapy induced pancytopenia; I50.31 Acute diastolic (congestive) heart failure; J15.6 Pneumonia due to other Gram-negative bacteria; R65.21 Severe sepsis with septic shock; J96.21 Acute and chronic respiratory failure with hypoxia; J96.22 Acute and chronic respiratory failure with hypercapnia; D84.9 Immunodeficiency, unspecified; E87.1 Hypo-osmolality and hyponatremia; E87.4 Mixed disorder of acid-base balance; I48.19 Other persistent atrial fibrillation; J44.0 Chronic obstructive pulmonary disease with (acute) lower respiratory infection; J44.1 Chronic obstructive pulmonary disease with (acute) exacerbation; J98.11 Atelectasis; K80.10 Calculus of gallbladder with chronic cholecystitis without obstruction; K82.1 Hydrops of gallbladder; N17.9 Acute kidney failure, unspecified; K76.6 Portal hypertension; Z68.41 Body mass index [BMI] 40.0-44.9, adult; C34.90 Malignant neoplasm of unspecified part of unspecified bronchus or lung; A41.50 Gram-negative sepsis, unspecified; Z66 Do not resuscitate; Z20.828 Contact with and (suspected) exposure to other viral communicable diseases; D70.1 Agranulocytosis secondary to cancer chemotherapy; D70.3 Neutropenia due to infection; I27.20 Pulmonary hypertension, unspecified; I11.0 Hypertensive heart disease with heart failure; K74.60 Unspecified cirrhosis of liver; E11.9 Type 2 diabetes mellitus without complications; E83.42 Hypomagnesemia; E86.1 Hypovolemia; K21.9 Gastro-esophageal reflux disease without esophagitis; K52.89 Other specified noninfective gastroenteritis and colitis; T45.1X5A Adverse effect of antineoplastic and immunosuppressive drugs, initial encounter; R50.81 Fever presenting with conditions classified elsewhere; R01.1 Cardiac murmur, unspecified; T50.8X5A Adverse effect of diagnostic agents, initial encounter; E66.9 Obesity, unspecified; Z79.82 Long term (current) use of aspirin; Z79.899 Other long term (current) drug therapy; Z79.84 Long term (current) use of oral hypoglycemic drugs; Z88.2 Allergy status to sulfonamides; Z87.891 Personal history of nicotine dependence; Z85.820 Personal history of malignant melanoma of skin; Z85.118 Personal history of other malignant neoplasm of bronchus and lung; Z92.3 Personal history of irradiation; Z15.01 Genetic susceptibility to malignant neoplasm of breast; Z98.51 Tubal ligation status; Z80.41 Family history of malignant neoplasm of ovary; Z80.1 Family history of malignant neoplasm of trachea, bronchus and lung; Z80.3 Family history of malignant neoplasm of breast
CPT/HCPCS: 36415; 36600; 71045; 71275; 74018; 74177; 76705; 78227; 80048; 80053; 81001; 82728; 82805; 83605; 83615; 83630; 83735; 83880; 84145; 84484; 85025; 85379; 85610; 85730; 86140; 87040; 87045; 87046; 87070; 87077; 87186; 87205; 87324; 93005; 93306; 94002; 94003; 94640; 94644; 94660; 96361; 96365; 96366; 96367; 96375; 96376; 99285